=== PATIENT | male | born 1970 | race Caucasian/White ===

== ENCOUNTER 2019-06-25 11:26 | Inpatient (IN) | payer OTHER, SELFPAY ==
[2019-06-25] VITALS (10 sets, daily range): BP systolic 125–164; BP diastolic 78–107; PULSE 75–95; RESP 16–89; TEMP 36.5–36.9; O2SAT 98–100; BMI 33.6
--- NOTE | 2019-06-25 11:28 | ED.ABDPAIN ---
HPI - Abdominal Pain General Chief Complaint: Urogenital-Male Stated Complaint: kidney pain Time Seen by Provider: 06/25/19 11:27 Source: patient Mode of arrival: Ambulatory Limitations: no limitations History of Present Illness HPI narrative: This is a 49-year-old male comes emergency department with complaint of right flank pain that has since moved to the left side. Patient states worse at night and improved during the day. He states that during the day about a 5/10 in itis about 10/10. He has had several days of symptoms. He has not had any fevers. He denies any cold cough or congestion this week. Patient has not had any nausea or vomiting he has been constipated but had a bowel movement 24 hours ago. He states it was sort of greenish in coloration. He has not had any black or bloody stools. Patient states he has noticed his urine is a little full me, as well as has an odor. He denies any dysuria, urgency or frequency. He denies any testicular pain currently. He denies any swelling. Patient does have known type 2 diabetes, hypertension as well as dyslipidemia and takes metformin, pioglitazone, atorvastatin and lisinopril. He also has a history of depression states he has had thoughts of harming himself in the past but not currently. He also has a history of myocarditis about 10-15 years ago which he states he had a cardiac catheterization which was negative and he does not know if they ever found a cause. He has had a cholecystectomy. He denies tobacco, alcohol or illicit Related Data Allergies Allergy/AdvReac Type Severity Reaction Status Date / Time No Known Drug Allergies Allergy Verified 06/25/19 13:56 Review of Systems Review of Systems ROS Unobtainable: All systems reviewed & are unremarkable except as noted in HPI and below Patient History Medical History (Updated 06/25/19 @ 12:57 by Victoria Coombs DO) Depression (Acute) Diabetes (Acute) Dyslipidemia (Acute) Hypertension (Acute) Surgical History (Updated 06/25/19 @ 11:53 by Victoria Coombs DO) Hx of cholecystectomy (Acute) S/P cardiac cath (Acute) Social History Smoking Status: Never smoker Smoking Status: Never smoker Substance Use Type: does not use Exam Narrative Exam Narrative: GENERAL: Alert and oriented x three, well-nourished male in mild distress. HEENT: Head normocephalic, atraumatic, EOMI, pupils reactive, face symmetric, moist mucous membranes NECK: Supple, full range of motion CARDIOVASCULAR: Regular rate and rhythm without murmurs, rubs or gallops. RESPIRATORY: Breath sounds equal bilaterally, no wheezes rales or rhonchi. ABDOMEN: Soft, nontender. Normoactive bowel sounds all 4 quadrants. No guarding or rebound, rigidity, no mass : Bilateral CVA tenderness BACK: No cervical, thoracic or lumbar vertebral point tenderness. Patient has normal range of motion. Patient's gait is normal. Rectal exam is deferred. Muscle strength is 5/5 in lower extremities, DTRs are 2/4 and lower extremities. Patient does have some mild discomfort with rotation and side bending. Prefers to sit up straight. EXTREMITIES: Normal range of motion, no clubbing or edema. Neurovascularly intact NEUROLOGICAL: Cranial nerves II through XII grossly intact. Moving all extremities SKIN: Warm, dry, no petechiae, no rashes or lesions. Initial Vital Signs Initial Vital Signs: Vital Signs Temperature 97.8 F 06/25/19 11:30 Pulse Rate 95 H 06/25/19 11:30 Respiratory Rate 18 06/25/19 11:30 Blood Pressure 164/107 H 06/25/19 11:30 Pulse Oximetry 100 06/25/19 11:30 Course Orders Ordered: ED Orders 06/25/19 11:35 Urine Microscopic Stat 06/25/19 11:49 US abdomen complete Stat 06/25/19 12:27 Complete Blood Count AUTO DIFF Stat Comprehensive Metabolic Panel Stat Lipase Stat Discontinued Medications Sodium Chloride (Normal Saline 0.9%) 1,000 mls @ 1,000 mls/hr IV BOLUS ONE Stop: 06/25/19 14:01 Last Infusion: 06/25/19 13:56 Dose: 0 mls/hr Documented by: Admin: 06/25/19 13:12 Dose: 1,000 mls/hr Documented by: FRANCISCO Ketorolac Tromethamine (Toradol) 15 mg IV NOW ONE Stop: 06/25/19 14:23 Ketorolac Tromethamine (Toradol) 15 mg IV NOW ONE Stop: 06/25/19 14:25 Vital Signs Vital signs: Vital Signs - 8 hr 06/25/19 11:30 06/25/19 12:56 06/25/19 13:30 Temperature 97.8 F Pulse Rate 95 H 85 86 Respiratory Rate 18 89 H Blood Pressure 164/107 H Blood Pressure [Left Arm] 137/85 154/85 H Pulse Oximetry 100 99 100 MDM - Abdominal Pain Lab Data Attestation: I reviewed the patient's lab results. Result diagrams: 06/25/19 12:27 06/25/19 12:27 Labs: Lab Results 06/25/19 06/25/19 06/25/19 Range/Units 11:35 12:27 12:27 WBC 8.4 (4.5-11.0) X10^3/uL RBC 5.17 (4.5-5.9) X10^6/uL Hgb 15.4 (13.5-17.5) g/dL Hct 44.3 (41-53) % MCV 85.7 (80-100) fL MCH 29.9 (26-34) PG MCHC 34.9 (30-36) % RDW 13.5 (11.6-14.8) % Plt Count 287 (150-400) X10^3/uL Neut % (Auto) 68.3 (50-75) % Lymph % (Auto) 21.9 L (25-40) % [place] % (Auto) 6.8 (3-14) % Eos % (Auto) 2.2 (2-4) % Baso % (Auto) 0.8 (0-2) % Neut # (Auto) 5700 (5018-9924) /uL Lymph # (Auto) 1800 (7607-0732) /uL [place] # (Auto) 600 (0-900) /uL Eos # (Auto) 200 (0-450) /uL Baso # (Auto) 100 (0-100) /uL Sodium 136 L (137-145) mmol/L Potassium 4.3 (3.4-5.1) mmol/L Chloride 99 (98-107) mmol/L Carbon Dioxide 25 (22-32) mmol/L BUN 10 (9-20) mg/dL Creatinine 0.68 (0.66-1.25) mg/dL Estimated GFR > 60.0 (>60) mL/min BUN/Creatinine Ratio 14.7 (6-22) Glucose 358 H (70-100) mg/dL Calcium 9.4 (8.4-10.2) mg/dL Total Bilirubin 0.9 (0.2-1.3) mg/dL AST 23 (17-59) IU/L ALT 31 (<50) IU/L Alkaline Phosphatase 106 (38-126) U/L Total Protein 7.6 (6.3-8.2) g/dL Albumin 4.5 (3.5-5.0) g/dL Globulin 3.1 (1.7-4.1) g/dL Albumin/Globulin Ratio 1.5 (1.0-2.8) Lipase 988 H (23-300) U/L Urine RBC None seen (0-5/HPF) Urine WBC 0-1/hpf (0-5/HPF) Ur Squamous Epith Cells 0-1 /hpf (0-5/HPF) Urine Bacteria None seen (None) Ur Culture Indicated? Cult not indicated Point of care testing: Urine Dip Bedside Urine Glucose 1000 mg/dl Bedside Urine Bilirubin - Negative Bedside Urine Ketone + 15 Urine Specific Morgan 1.015 Bedside Urine Occult Blood - Negative Bedside Urine pH 5.5 Bedside Urine Protein - Negative Bedside Urine Urobilinogen - Negative Bedside Urine Nitrite - Negative Bedside Urine Leukocytes - Negative Esterase Imaging Data US - abdomen: Radiologist's Impression: [place] [id number] Ultrasound Report Signed Patient: Vishal Purdy [facility]#: [id number] : 1970Acct:[id number] Age/Sex: 49 / MDate of Service: 06/25/19 Loc: ED Accession Number: [id number] Procedure: US abdomen complete Ordering Provider: Victoria Coombs D.O. PROCEDURE: US ABDOMEN COMPLETE INDICATIONS: BILATERAL BACK PAIN TECHNIQUE: Real-time scanning was performed of the abdominal and retroperitoneal organs, with image documentation. COMPARISON: None. FINDINGS: Liver: Liver is normal in size and demonstrates diffusely increased echogenicity when compared to the right kidney. This does result in difficulty evaluating the liver for deep liver lesions. No large liver lesions are identified. Gallbladder: Patient has had a prior cholecystectomy. Biliary ducts: No intrahepatic biliary dilatation is identified. The common bile duct was not definitely identified related to overlying bowel gas. Pancreas: Visualized portions of the pancreas are sonographically normal. Spleen: The spleen is mildly enlarged at 13.9 cm. No definite splenic lesions are evident. Kidneys: Kidneys are normal in size and echotexture. Right kidney measures 11.7 cm long; left kidney measures 10.9 cm long. No hydronephrosis is identified. Small echogenic foci within the kidneys may be present bilaterally without definitive shadowing. No cystic or solid renal lesions are evident. Aorta: Visualized aorta is normal in caliber at less than 3 cm. Iliacs: Proximal common iliac arteries are normal in caliber at less than 2.5 cm. IVC: Intrahepatic inferior vena cava is patent. Miscellaneous: No free abdominal fluid. IMPRESSION: 1. Probable hepatic steatosis. Please correlate clinically to exclude other chronic liver diseases. 2. Mild splenomegaly. 3. Echogenic foci within the kidneys could potentially represent nonobstructing renal calculi. There is no hydronephrosis. The need for confirmation utilizing CT should be determined clinically. Dictated by: Noé Sanchez M.D. on 06/25/2019 at 12:14 Approved by: Noé Sanchez M.D. on 06/25/2019 at 12:17 MDM Narrative Medical decision making narrative: Patient has bilateral flank tenderness. Point of care urine is negative, was sent for microscopic with patient's history and known prior elevated hemoglobin A1c CBC, CMP and lipase were included as well as ultrasound of the abdomen. Patient's physical exam is benign. Patient defers any pain medications. Patient labs show elevated lipase in the 900 range, patient has elevated glucose in the 350s his anion gap is 12 his CO2 is 25 with no signs of DKA. Patient's ultrasound shows hepatic steatosis. No intrahepatic biliary dilation is identified the common bile duct was not definitively identified secondary to overlying gas pancreas is sonographically normal. Small echogenic foci in the kidneys could be present but without definitive shadowing could represent nonobstructing calculi. No cystic or solid renal lesions are evident. Aorta is normal caliber as well as the iliacs and IVC. Discussed with Dr. Fabian, plan for observation for pancreatitis. Patient had fluids started. Patient updated, he does have access to prior labs through his patient portal and had triglycerides in the 400 range which may predispose him to pancreatitis. Discharge Plan Departure Patient Disposition: Admitted as Observation Clinical Impression: Bilateral flank pain Acute pancreatitis Qualifiers: Pancreatitis type: unspecified pancreatitis type Acute pancreatitis complication: unspecified Qualified Code(s): K85.90 - Acute pancreatitis without necrosis or infection, unspecified Admit Date/Time: 06/25/19 13:49 Admit Provider: Toan Fabian
--- NOTE | 2019-06-25 11:49 | DI.US.S_ITS ---
PROCEDURE: US ABDOMEN COMPLETE INDICATIONS: BILATERAL BACK PAIN TECHNIQUE: Real-time scanning was performed of the abdominal and retroperitoneal organs, with image documentation. COMPARISON: None. FINDINGS: Liver: Liver is normal in size and demonstrates diffusely increased echogenicity when compared to the right kidney. This does result in difficulty evaluating the liver for deep liver lesions. No large liver lesions are identified. Gallbladder: Patient has had a prior cholecystectomy. Biliary ducts: No intrahepatic biliary dilatation is identified. The common bile duct was not definitely identified related to overlying bowel gas. Pancreas: Visualized portions of the pancreas are sonographically normal. Spleen: The spleen is mildly enlarged at 13.9 cm. No definite splenic lesions are evident. Kidneys: Kidneys are normal in size and echotexture. Right kidney measures 11.7 cm long; left kidney measures 10.9 cm long. No hydronephrosis is identified. Small echogenic foci within the kidneys may be present bilaterally without definitive shadowing. No cystic or solid renal lesions are evident. Aorta: Visualized aorta is normal in caliber at less than 3 cm. Iliacs: Proximal common iliac arteries are normal in caliber at less than 2.5 cm. IVC: Intrahepatic inferior vena cava is patent. Miscellaneous: No free abdominal fluid. IMPRESSION: 1. Probable hepatic steatosis. Please correlate clinically to exclude other chronic liver diseases. 2. Mild splenomegaly. 3. Echogenic foci within the kidneys could potentially represent nonobstructing renal calculi. There is no hydronephrosis. The need for confirmation utilizing CT should be determined clinically. Dictated by: Noé Sanchez M.D. on 06/25/2019 at 12:14 Approved by: Noé Sanchez M.D. on 06/25/2019 at 12:17
--- NOTE | 2019-06-25 12:21 | PC.NURSE ---
2 IV attempts by nicholas RN. One by Vane PALOMARES. unable to place IV. Dr. Coombs notified and Called for lab draw.
[2019-06-25 12:28] LABS: Bacteria Urine None Seen; RBC Urine None Seen (0-5/HPF)
[2019-06-25 12:38] LABS: Culture Indicated Urine Cult Not Indicated; Squamous Epithelial Cell Urine 0-1 /HPF (0-5/HPF); WBC Urine 0-1/HPF (0-5/HPF)
[2019-06-25 12:39] LABS: Add Manual Diff / Slide Review NO; Basophils Absolute Auto 100 /uL (0-100); Basophils Percent Auto 0.8 % (0-2); Eosinophils Absolute Auto 200 /uL (0-450); Eosinophils Percent Auto 2.2 % (2-4); Hematocrit 44.3 % (41-53); Hemoglobin 15.4 g/dL (13.5-17.5); Lymphocytes Absolute Auto 1800 /uL (1100-4500); Lymphocytes Percent Auto 21.9 % (25-40); Mean Corpuscular HGB Conc 34.9 % (30-36); Mean Corpuscular Hemoglobin 29.9 PG (26-34); Mean Corpuscular Volume 85.7 fL (80-100); Monocytes Absolute Auto 600 /uL (0-900); Monocytes Percent Auto 6.8 % (3-14); Neutrophils Absolute Auto 5700 /uL (1500-7000); Neutrophils Percent Auto 68.3 % (50-75); Platelet Count 287 X10^3/uL (150-400); Red Blood Cell Count 5.17 X10^6/uL (4.5-5.9); Red Cell Distribution Width 13.5 % (11.6-14.8); White Blood Cell Count 8.4 X10^3/uL (4.5-11.0)
[2019-06-25 12:50] LABS: Alanine Aminotransferase 31 IU/L (<50); Albumin 4.5 g/dL (3.5-5.0); Albumin Globulin Ratio 1.5 (1.0-2.8); Alkaline Phosphatase 106 U/L (38-126); Aspartate Aminotransferase 23 IU/L (17-59); BUN Creatinine Ratio 14.7 (6-22); Bilirubin Total 0.9 mg/dL (0.2-1.3); Blood Urea Nitrogen 10 mg/dL (9-20); Calcium 9.4 mg/dL (8.4-10.2); Carbon Dioxide 25 mmol/L (22-32); Chloride 99 mmol/L (98-107); Estimated Glomerular Filt Rate > 60.0 mL/min (>60); Globulin 3.1 g/dL (1.7-4.1); Glucose 358 mg/dL (70-100); HEMOLYSIS < 15 (0-50); Lipase 988 U/L (23-300); Potassium 4.3 mmol/L (3.4-5.1); Sodium 136 mmol/L (137-145); Total Protein 7.6 g/dL (6.3-8.2)
[2019-06-25] MEDS: SODIUM CHLORIDE 0.9% 1,000 ML 1000 ML IV ×2 (13:12→15:32)
[2019-06-25] MEDS: KETOROLAC 15 MG/ML VIAL IV (14:46)
--- NOTE | 2019-06-25 14:55 | PC.NURSE ---
Assumed care of patient at 1440 from ER. Patient is A/Ox3, in 8/10 flank pain. Administered prescribed Ketorolac 15 mg, RUE PIV is patent and infusing. Patient denies a fall in the past 3 months, denies SOB, chest pain, dizziness, lightheadedness. Patient reports BM while in the ER, voiding appropriately, urinal at bedside. Verbalizes feeling anxious. Patient is NPO at this time. Call light in reach, SCD's on, warm blanket provided.
--- NOTE | 2019-06-25 15:25 | PM.HP.1 ---
History of Present Illness History of Present Illness Date Patient Seen: 06/25/19 Time Patient Seen: 15:00 Chief complaint: kidney pain Narrative: Patient is a 49-year-old male with history of type 2 diabetes, hypertension, hyperlipidemia who presented to the emergency department because of back and abdominal pain for the past 5-6 days. He states the discomfort started in his right mid back and then also affected the left mid back. Over the past couple of days he has had progressive and severe upper abdominal pain. He has had decreased appetite, nausea without vomiting. He noticed eating made the pain worse. He denies fevers or chills. He noticed urine is frothy but has not had dysuria. He has not been checking his blood sugars regularly. His last A1c was 11% on 02/22/2019 and provider increased his Actos dose at that time. Patient also has history of elevated triglycerides with triglyceride of 420 back on February 22. He has history cholecystectomy 18 years ago. He denies alcohol use and does not smoke cigarettes but does use cannabis occasionally. ER workup included labs which showed normal CBC, normal chemistries, except glucose 358. His lipase was elevated at 988. LFTs were normal. His urinalysis microscopic is normal. Ultrasound showed absence of gallbladder, CBD not visualized secondary to bowel gas, nonobstructing renal calculi, mild splenomegaly. Patient also reports he had respiratory illness with cough, chest congestion, fatigue and myalgias 3 weeks ago. He was seen at walk-in clinic and told he probably has coronavirus but he did not meet testing requirements at the time. He states he fully recovered over period of 5 or 6 days. Patient has and 2 kids. They moved from [place] very recently and he has not had opportunity to establish with local PCP. Patient History Medical History (Updated 06/25/19 @ 12:57 by Victoria Coombs DO) Depression (Acute) Diabetes (Acute) Dyslipidemia (Acute) Hypertension (Acute) Surgical History (Updated 06/25/19 @ 11:53 by Victoria Coombs DO) Hx of cholecystectomy (Acute) S/P cardiac cath (Acute) Family & Social History Safety & Behavioral: Feels Safe in Current Yes Environment Been Physically Hurt or No Threatened By a Person Tobacco & Substance use: Smoking Status Never smoker Substance Use Type does not use Meds Home Medications and Allergies Allergies Allergy/AdvReac Type Severity Reaction Status Date / Time No Known Drug Allergies Allergy Verified 06/25/19 13:56 Review of Systems Review of Systems ROS: Yes All systems reviewed with the patient and are negative except as otherwise documented Exam Vital Signs (past 8 hours): - 06/25/19 11:30 06/25/19 12:56 06/25/19 13:30 Temperature 97.8 F Pulse Rate 95 H 85 86 Respiratory Rate 18 89 H Blood Pressure 164/107 H Blood Pressure [Left Arm] 137/85 154/85 H Pulse Oximetry 100 99 100 06/25/19 14:35 Temperature 97.7 F Pulse Rate 75 Respiratory Rate 22 Blood Pressure 135/105 H Blood Pressure [Left Arm] Pulse Oximetry 100 Oxygen Delivery Method Room Air Oxygen Flow Rate 0 Narrative Exam Narrative: General: Alert and very pleasant cooperative male who is at this time I will leave uncomfortable HEENT: Pupils equal Neck: No lymphadenopathy Lungs: Clear to auscultation Heart: Normal S1 and S2, regular rate and rhythm, no murmur Abdomen: Obese, soft, moderate tenderness to palpation in the mid abdomen and right upper quadrant, no HSM, no flank tenderness Extremities: Nonedematous Neurological: Sensorium intact, nonfocal Skin: No rash Objective Labs Result Diagrams: 06/25/19 12:27 06/25/19 12:27 Labs: Laboratory Results - last 24 hr 06/25/19 06/25/19 06/25/19 11:35 12:27 12:27 WBC 8.4 RBC 5.17 Hgb 15.4 Hct 44.3 MCV 85.7 MCH 29.9 MCHC 34.9 RDW 13.5 Plt Count 287 Neut % (Auto) 68.3 Lymph % (Auto) 21.9 L [place] % (Auto) 6.8 Eos % (Auto) 2.2 Baso % (Auto) 0.8 Neut # (Auto) 5700 Lymph # (Auto) 1800 [place] # (Auto) 600 Eos # (Auto) 200 Baso # (Auto) 100 Sodium 136 L Potassium 4.3 Chloride 99 Carbon Dioxide 25 BUN 10 Creatinine 0.68 Estimated GFR > 60.0 BUN/Creatinine Ratio 14.7 Glucose 358 H Calcium 9.4 Total Bilirubin 0.9 AST 23 ALT 31 Alkaline Phosphatase 106 Total Protein 7.6 Albumin 4.5 Globulin 3.1 Albumin/Globulin Ratio 1.5 Lipase 988 H Urine RBC None seen Urine WBC 0-1/hpf Ur Squamous Epith Cells 0-1 /hpf Urine Bacteria None seen Ur Culture Indicated? Cult not indicated Assessment & Plan Assessment & Plan narrative: Patient is a 49-year-old male with history of poorly controlled type 2 diabetes, hypertension, hyperlipidemia/dyslipidemia, obesity presents with 5-6 days of back and abdominal pain. 1. Acute pancreatitis, present on admission, active -history of cholecystectomy, nondrinker, history of elevated triglycerides -check triglyceride level -received NS 1 L in the ED, provide additional 1 L NS -NS 150 cc/hour for maintenance IV -Toradol 30 mg IV q.6 hours as needed -morphine 1 mg IV q.2 hours as needed for more severe pain -full liquid diet as tolerated 2. Type 2 diabetes -BMI 33 -last A1c 11% in February 2019 -check A1c -continue patient's Actos 45 mg q.d. and metformin 1000 mg b.i.d. -NovoLog medium dose sliding scale -c/o ?frothy ?urine--check urine microalbumin 3. Hypertension -BP moderately elevated may be due to pain -continue patient's lisinopril 10 mg HS -consider increase lisinopril for uncontrolled hypertension or microalbuminuria 4. Hyperlipidemia/dyslipidemia -continue patient's atorvastatin 40 mg HS 5. Chronic anxiety -patient takes hydroxyzine 50 mg once daily and clonazepam 1 mg at night on as needed basis -mood and affect very stable, continue meds DVT prophylaxis: Lovenox
[2019-06-25 15:40] LABS: Triglycerides 413 mg/dL (35-150)
[2019-06-25] MEDS: hydrOXYzine pamoate 25 MG CAPSULE 50 MG PO (15:41)
[2019-06-25] MEDS: SODIUM CHLORIDE 0.9% 1,000 ML 150 ML IV ×2 (16:32→23:51)
[2019-06-25] MEDS: METFORMIN HCL 500 MG TABLET 1000 MG PO (16:33)
[2019-06-25] MEDS: INSULIN ASPART 100 UNIT/ML INSULN PEN SUBCUT ×2 (16:33→21:19)
[2019-06-25 18:35] LABS: Creatinine Urine Random 63.9 mg/dL
[2019-06-25 18:41] LABS: Microalbumin Urine Random 0.9 mg/dL (0-1.6)
[2019-06-25] MEDS: clonazePAM 0.5 MG TABLET 1 MG PO (21:17)
[2019-06-25] MEDS: KETOROLAC 30 MG/ML VIAL IV (21:17)
[2019-06-25] MEDS: ATORVASTATIN 20 MG TABLET 40 MG PO (21:18)
[2019-06-25] MEDS: lisinopriL 10 MG TABLET PO (21:19)
[2019-06-26] VITALS (11 sets, daily range): BP systolic 118–148; BP diastolic 70–92; PULSE 75–98; RESP 16–20; TEMP 36.2–37.2; O2SAT 97–99
[2019-06-26] MEDS: KETOROLAC 30 MG/ML VIAL IV (06:23)
[2019-06-26] MEDS: SODIUM CHLORIDE 0.9% 1,000 ML 150 ML IV ×3 (06:24→20:41)
[2019-06-26 06:42] LABS: BUN Creatinine Ratio 14.9 (6-22); Blood Urea Nitrogen 10 mg/dL (9-20); Calcium 8.7 mg/dL (8.4-10.2); Carbon Dioxide 24 mmol/L (22-32); Chloride 105 mmol/L (98-107); Estimated Glomerular Filt Rate > 60.0 mL/min (>60); Glucose 272 mg/dL (70-100); Sodium 136 mmol/L (137-145)
[2019-06-26 06:44] LABS: HEMOLYSIS 84 (0-50)
[2019-06-26 06:45] LABS: Potassium 4.7 mmol/L (3.4-5.1)
[2019-06-26] MEDS: ENOXAPARIN 40 MG/0.4 ML SYRINGE SUBCUT (08:06)
[2019-06-26] MEDS: PIOGLITAZONE 15 MG TABLET 45 MG PO (08:07)
[2019-06-26] MEDS: METFORMIN HCL 500 MG TABLET 1000 MG PO (08:07)
[2019-06-26] MEDS: INSULIN ASPART 100 UNIT/ML INSULN PEN SUBCUT ×4 (08:08→20:43)
[2019-06-26 08:33] LABS: Add Manual Diff / Slide Review NO; Basophils Absolute Auto 100 /uL (0-100); Basophils Percent Auto 0.9 % (0-2); Eosinophils Absolute Auto 200 /uL (0-450); Eosinophils Percent Auto 2.7 % (2-4); Hematocrit 41.9 % (41-53); Hemoglobin 14.9 g/dL (13.5-17.5); Lymphocytes Absolute Auto 1900 /uL (1100-4500); Lymphocytes Percent Auto 26.5 % (25-40); Mean Corpuscular HGB Conc 35.4 % (30-36); Mean Corpuscular Hemoglobin 30.4 PG (26-34); Mean Corpuscular Volume 85.9 fL (80-100); Monocytes Absolute Auto 300 /uL (0-900); Monocytes Percent Auto 4.9 % (3-14); Neutrophils Absolute Auto 4600 /uL (1500-7000); Platelet Count 248 X10^3/uL (150-400); Red Blood Cell Count 4.88 X10^6/uL (4.5-5.9); Red Cell Distribution Width 13.4 % (11.6-14.8)
--- NOTE | 2019-06-26 08:46 | CM.DANOTE ---
DCP: Case received, EMR reviewed and met with patient. Introduced self and role. Was able to obtain information from patient regarding baseline activity, health, and living situation. DCP assessment completed with information currently available. Patient is a 49 year old male who admitted yesterday afternoon to the care of the hospitalist team. PCP: None Payer: confirmed: [facility]. Patient came to the hospital via family vehicle secondary to right and left flank back pain. According to notes, this had been occurring for the past few days. Patient holds current diagnosis of pancreatitis. Patient has history of diabetes type 2, myocarditis, as well as depression. Met with patient in his room. Pleasant, alert and oriented. He was sitting up in his bed. Confirmed that he and his just moved here recently from [place], and has no local PCP. He is open to resources to establishing with PCP. Patient stated that when he left [place], he was provided with a months worth of medication. He is also getting a glucometer, for he stated that he has not been checking his blood sugars. Patient is independent, and resides in [place] with his spouse, Casey. He is employed at [employer], but stated that he is currently working from home. P: DCP to continue to follow, and will be available for any resources needed. Patient should be able to go home when he is medically stable. Apolonia Barrios RN/Oil Laboratory Analyst
[2019-06-26] MEDS: hydrOXYzine pamoate 25 MG CAPSULE 50 MG PO (12:14)
--- NOTE | 2019-06-26 14:54 | DI.MRI.S_ITS ---
PROCEDURE: MR ABDOMEN WO CON INDICATIONS: Acute Pancreatitis, r/o bile duct stones TECHNIQUE: Coronal HASTE through the abdomen, axial 2-D FLASH in- and [id number], and breath-hold T2 FSE with fat saturation through the biliary system and pancreas. Oblique coronal and axial thin-slice HASTE, radial thick-slab HASTE centered on the extrahepatic bile ducts. Intravenous secretin: Not requested. COMPARISON: [facility], , ABDOMEN COMPLETE, 06/25/2019, 12:40. FINDINGS: Image quality: Excellent. Pancreas and biliary system: Intra- and extra-hepatic biliary ducts are non dilated. Pancreas is normal in morphology, without adjacent soft tissue edema. Pancreatic duct is normal in caliber, without developmental anomalies. Gallbladder has been previously resected. Other solid organs: Liver is normal in size. Spleen is normal in size. No adrenal nodules. Both kidneys are normal in size, without hydronephrosis. Nodes and vessels: No retroperitoneal or mesenteric adenopathy by size criteria. Aorta and inferior vena cava are normal in size. Bowel and peritoneum: Unenhanced bowel loops are normal in caliber. No free fluid. Lung bases: No basal pleural effusions. Heart size is normal. Bones and soft tissues: No ventral hernias. Bone marrow is of normal overall signal. IMPRESSION: No biliary duct dilatation or calculus found. No pancreatic duct distention. The pancreas appears normal. MR scanning is relatively insensitive for detecting mild to moderate acute pancreatitis. Dictated by: Lai Waterman M.D. on 06/26/2019 at 16:04 Approved by: Lai Waterman M.D. on 06/26/2019 at 16:06
--- NOTE | 2019-06-26 14:54 | PM.PN.1 ---
Subjective Subjective Date Patient Seen: 06/26/19 Interval history: The patient is a 49-year-old male who was admitted to the hospital for acute pancreatitis. Patient reports his abdominal pain has improved. He just received pain medication and notes pain is 2 to 3/10. Previously over the weekend his pain was 10/10 and upon admission 6/10. He has no nausea vomiting. He is still NPO. Patient does admit to eating in inappropriate diet. However he does not drink alcohol, triglycerides were elevated at 400, his gallbladder was taken out many years ago. Exam Vital Signs (past 8 hours): - 06/26/19 07:49 06/26/19 08:00 06/26/19 11:00 Temperature 97.5 F L Pulse Rate 75 Respiratory Rate 18 Blood Pressure 141/85 H Pulse Oximetry 97 98 97 06/26/19 12:00 Temperature 98.9 F Pulse Rate 86 Respiratory Rate 20 Blood Pressure 146/92 H Pulse Oximetry 99 Oxygen Delivery Method Room Air Oxygen Flow Rate 0 Narrative Exam Narrative: Pleasant male resting comfortably in no obvious distress Lungs: Clear to auscultation Cardiac exam: Regular rate and rhythm normal S1-S2 Abdomen: Soft, mildly tender in the midepigastric area, no rebound tenderness, no board-like rigidity, no palpable masses Extremities no edema Objective Labs Result Diagrams: 06/26/19 08:26 06/26/19 06:00 Labs: Laboratory Results - last 24 hr 06/25/19 06/25/19 06/25/19 11:35 12:27 12:27 WBC RBC Hgb Hct MCV MCH MCHC RDW Plt Count Neut % (Auto) Lymph % (Auto) [place] % (Auto) Eos % (Auto) Baso % (Auto) Neut # (Auto) Lymph # (Auto) [place] # (Auto) Eos # (Auto) Baso # (Auto) Sodium Potassium Chloride Carbon Dioxide BUN Creatinine Estimated GFR BUN/Creatinine Ratio Glucose Hemoglobin A1c 11.0 H Calcium Triglycerides 413 H Ur Random Microalbumin 0.9 Urine Creatinine 63.9 Microalb/Creat Ratio 14.0 06/26/19 06/26/19 06:00 08:26 WBC 7.0 RBC 4.88 Hgb 14.9 Hct 41.9 MCV 85.9 MCH 30.4 MCHC 35.4 RDW 13.4 Plt Count 248 Neut % (Auto) 65.0 Lymph % (Auto) 26.5 [place] % (Auto) 4.9 Eos % (Auto) 2.7 Baso % (Auto) 0.9 Neut # (Auto) 4600 Lymph # (Auto) 1900 [place] # (Auto) 300 Eos # (Auto) 200 Baso # (Auto) 100 Sodium 136 L Potassium 4.7 Chloride 105 Carbon Dioxide 24 BUN 10 Creatinine 0.67 Estimated GFR > 60.0 BUN/Creatinine Ratio 14.9 Glucose 272 H Hemoglobin A1c Calcium 8.7 Triglycerides Ur Random Microalbumin Urine Creatinine Microalb/Creat Ratio Assessment & Plan Assessment & Plan narrative: Impression 1. 49-year-old male admitted to the hospital with acute pancreatitis -patient is status post cholecystectomy many years ago, triglycerides were 400, no evidence of alcohol use in many years -will obtain MRCP to look at biliary and pancreatic duct -will continue IV fluids and pain medication -patient will remain NPO at this time 2. Type 2 diabetes, poorly controlled -continue a basal bolus insulin regimen while hospitalized -resume his usual patient regimen at discharge 3. Hypertension -continue usual home regimen 4. Hyperlipidemia -hypertriglyceridemia should improve with improved glucose control -continue statin for now Plan is to advance diet following is MRCP, once the patient is able to tolerated diet and has no further pain anticipate discharge home. Expect discharge home in 1-2 days.
[2019-06-26] MEDS: ONDANSETRON 4 MG/2 ML INJ IV (15:56)
[2019-06-26] MEDS: MORPHINE 2 MG/ML INJ 1 MG IV ×2 (15:57→20:49)
[2019-06-26 17:29] LABS: Lipase 977 U/L (23-300)
[2019-06-26] MEDS: lisinopriL 10 MG TABLET PO (20:41)
[2019-06-26] MEDS: ATORVASTATIN 20 MG TABLET 40 MG PO (20:41)
[2019-06-26] MEDS: INSULIN GLARGINE 100 UNIT/ML 3ML PEN 10 UNIT SUBCUT (20:42)
[2019-06-26] MEDS: clonazePAM 0.5 MG TABLET 1 MG PO (23:15)
[2019-06-27] VITALS (7 sets, daily range): BP systolic 128–138; BP diastolic 74–83; PULSE 74–80; RESP 16–18; TEMP 36.2–36.8; O2SAT 97–99
[2019-06-27] MEDS: SODIUM CHLORIDE 0.9% 1,000 ML 150 ML IV (04:07)
--- NOTE | 2019-06-27 06:26 | PC.NURSE ---
Denies abdominal & no C/O nausea all night. States I'm just hungry for solid food. Instructed to call RN if he needed pain med. Will cont. POC & monitor.
[2019-06-27 06:53] LABS: Add Manual Diff / Slide Review NO; Basophils Absolute Auto 0 /uL (0-100); Basophils Percent Auto 0.3 % (0-2); Eosinophils Absolute Auto 200 /uL (0-450); Eosinophils Percent Auto 2.6 % (2-4); Hemoglobin 14.2 g/dL (13.5-17.5); Lymphocytes Absolute Auto 1600 /uL (1100-4500); Lymphocytes Percent Auto 26.2 % (25-40); Mean Corpuscular HGB Conc 34.7 % (30-36); Mean Corpuscular Hemoglobin 29.9 PG (26-34); Mean Corpuscular Volume 86.2 fL (80-100); Monocytes Absolute Auto 300 /uL (0-900); Monocytes Percent Auto 5.5 % (3-14); Neutrophils Absolute Auto 4000 /uL (1500-7000); Neutrophils Percent Auto 65.4 % (50-75); Platelet Count 249 X10^3/uL (150-400); Red Blood Cell Count 4.76 X10^6/uL (4.5-5.9); Red Cell Distribution Width 13.5 % (11.6-14.8); White Blood Cell Count 6.1 X10^3/uL (4.5-11.0)
[2019-06-27 07:01] LABS: Alanine Aminotransferase 32 IU/L (<50); Albumin 3.7 g/dL (3.5-5.0); Albumin Globulin Ratio 1.2 (1.0-2.8); Alkaline Phosphatase 89 U/L (38-126); Aspartate Aminotransferase 26 IU/L (17-59); BUN Creatinine Ratio 9.1 (6-22); Bilirubin Total 0.8 mg/dL (0.2-1.3); Blood Urea Nitrogen 6 mg/dL (9-20); Calcium 8.7 mg/dL (8.4-10.2); Carbon Dioxide 24 mmol/L (22-32); Chloride 108 mmol/L (98-107); Estimated Glomerular Filt Rate > 60.0 mL/min (>60); Glucose 194 mg/dL (70-100); HEMOLYSIS < 15 (0-50); Potassium 3.7 mmol/L (3.4-5.1); Sodium 140 mmol/L (137-145); Total Protein 6.7 g/dL (6.3-8.2)
[2019-06-27] MEDS: INSULIN ASPART 100 UNIT/ML INSULN PEN SUBCUT ×2 (08:57→12:36)
[2019-06-27] MEDS: ENOXAPARIN 40 MG/0.4 ML SYRINGE SUBCUT (08:58)
--- NOTE | 2019-06-27 14:02 | PC.NURSE ---
Day shift: Pt left unit at approx 1400. Pt wanted to ambulate and did well doing this. He is also driving himself home to [facility] today. He has not had any narcotics since 2100 yesterday. Paperwork signed and all questions answered. Pt has MD scrips and also all personal belongings. He was escorted to care by [facility] [employer] today.
--- NOTE | 2019-06-27 18:02 | P.DS_ITS ---
History of Present Illness History of Present Illness Date Patient Seen: 06/27/19 Chief complaint: kidney pain Narrative: Patient is a 49-year-old male with history of type 2 diabetes, hyper tension, hyperlipidemia who presented to the emergency department because of back and abdominal pain for the past 5-6 days. He states the discomfort started in his right mid back and then also affected the left mid back. Over the past couple of days he has had progressive and severe upper abdominal pain. He has had decreased appetite, nausea without vomiting. He noticed eating made the pain worse. He denies fevers or chills. He noticed urine is frothy but has not had dysuria. He has not been checking his blood sugars regularly. His last A1c was 11% on 02/22/2019 and provider increased his Actos dose at that time. Patient also has history of elevated triglycerides with triglyceride of 420 back on February 22. He has history cholecystectomy 18 years ago. He denies alcohol use and does not smoke cigarettes but does use cannabis occasionally. ER workup included labs which showed normal CBC, normal chemistries, except glucose 358. His lipase was elevated at 988. LFTs were normal. His urinalysis microscopic is normal. Ultrasound showed absence of gallbladder, CBD not visual ized secondary to bowel gas, nonobstructing renal calculi, mild splenomegaly. Patient also reports he had respiratory illness with cough, chest congestion, fatigue and myalgias 3 weeks ago. He was seen at walk-in clinic and told he probably has coronavirus but he did not meet testing requirements at the time. He states he fully recovered over period of 5 or 6 days. Patient has and 2 kids. They moved from [place] very recently and he has not had opportunity to establish with local PCP. Discharge Providers Provider Date of admission: 06/25/19 13:49 Discharge Date: 06/27/19 Discharge provider: Shabnam Bright MD Summary Hospital Course Discharge Diagnosis: 1. Acute pancreatitis, resolved 2. Type 2 diabetes 3. Hypertension 4. Hyperlipidemia 5. Obesity Hospital Course: Patient was admitted to the hospital for acute abdominal pain. His initial lipase was elevated at over 900. Patient was made NPO and given IV fluids. He has a history of cholecystectomy. Patient denies drinking alcohol. His triglycerides were elevated at over 400. He did have an MRCP which showed no ductal dilatation or etiology of his pancreatitis. Patient's blood sugars were elevated. He apparently ran out of his usual Actos medication. He was placed on a sliding scale of insulin. Patient's diet was slowly advanced he tolerated this without difficulty. He was deemed appropriate for discharge and arrangements were made for him to be discharged home. Status at Discharge Cognitive/behavioral status at discharge: oriented Functional status at discharge: independent ambulation Overall status at discharge: patient is back to baseline Time Spent with Patient Time spent: Less than 30 minutes Exam Vital Signs (past 8 hours): - 06/27/19 10:54 06/27/19 11:00 Temperature 97.7 F Pulse Rate 80 Respiratory Rate 18 Blood Pressure 138/82 Pulse Oximetry 98 99 Oxygen Delivery Method Room Air Oxygen Flow Rate 0 Narrative Exam Narrative: Pleasant male in no obvious distress Lungs: Clear to auscultation Cardiac exam: Regular rate and rhythm normal S1-S2 Abdomen: Soft nontender nondistended Extremities: No edema Objective Labs Result Diagrams: 06/27/19 06:23 06/27/19 06:23 Labs: Laboratory Results - last 24 hr 06/27/19 06/27/19 06:23 06:23 WBC 6.1 RBC 4.76 Hgb 14.2 Hct 41.0 MCV 86.2 MCH 29.9 MCHC 34.7 RDW 13.5 Plt Count 249 Neut % (Auto) 65.4 Lymph % (Auto) 26.2 [place] % (Auto) 5.5 Eos % (Auto) 2.6 Baso % (Auto) 0.3 Neut # (Auto) 4000 Lymph # (Auto) 1600 [place] # (Auto) 300 Eos # (Auto) 200 Baso # (Auto) 0 Sodium 140 Potassium 3.7 Chloride 108 H Carbon Dioxide 24 BUN 6 L Creatinine 0.66 Estimated GFR > 60.0 BUN/Creatinine Ratio 9.1 Glucose 194 H Calcium 8.7 Total Bilirubin 0.8 AST 26 ALT 32 Alkaline Phosphatase 89 Total Protein 6.7 Albumin 3.7 Globulin 3.0 Albumin/Globulin Ratio 1.2 Discharge Plan Discharge Plan Patient Disposition: Home Discharge orders & Medications Prescriptions: New atorvastatin [Lipitor] 20 mg Tablet 40 mg PO BEDTIME 30 Days RF: 0 lisinopril 10 mg Tablet 10 mg PO BEDTIME 30 Days RF: 0 pioglitazone [Actos] 45 mg tablet 45 mg PO DAILY Qty: 30 RF: 0 Diet/Activity/Treatments Diet: Low-fat, Low-sodium and Low-cholesterol Visit Report/Discharge Packet Instructions: Blood Glucose, How to Check Your Blood Glucose, Complications of Type 2 Diabetes, Acute Pancreatitis, Hypoglycemia, Type 2 Diabetes, DI for Pancreatitis, DI for Hyperglycemia -- Adult, Atorvastatin, Lisinopril Visit Report Forms: Patient Portal/API, Stroke Signs & Symptoms Discharges patient from system. Discharge Date/Time: 06/27/19 14:06
== END 2019-06-27 14:06 | disposition home or self-care (01) | DRG 440 ==
LOC: ED 13:26 → AC 14:16
PROVIDERS: Internal Medicine; Admitting Provider Internal Medicine; Emergency Provider Emergency Medicine; Referring Provider Emergency Medicine; Visit Provider Internal Medicine
DX: K85.90 Acute pancreatitis without necrosis or infection, unspecified (principal); E11.65 Type 2 diabetes mellitus with hyperglycemia; I10 Essential (primary) hypertension; E78.5 Hyperlipidemia, unspecified; F41.9 Anxiety disorder, unspecified; Z79.84 Long term (current) use of oral hypoglycemic drugs; E66.9 Obesity, unspecified; Z68.33 Body mass index [BMI] 33.0-33.9, adult
CPT/HCPCS: 36415; 74181; 76700; 80048; 80053; 81003; 81015; 82043; 82570; 82962; 83036; 83690; 84478; 85025; 96361; 96374; 99284; J1650; J1885; J2270; J2405

== ENCOUNTER 2019-07-27 01:07 | Observation (INO) | payer OTHER, SELFPAY ==
[2019-06-25 15:23] VITALS: BMI 33.6
[2019-07-27] VITALS (14 sets, daily range): BP systolic 102–180; BP diastolic 72–98; PULSE 69–89; RESP 15–31; TEMP 36.2–36.6; O2SAT 96–100; BMI 33.9; BMI 34.2
--- NOTE | 2019-07-27 01:22 | ED.ABDPAIN ---
HPI - Abdominal Pain General Chief Complaint: Abdominal Pain Stated Complaint: abdominal/back pain Time Seen by Provider: 07/27/19 01:10 Source: patient Mode of arrival: Ambulatory Limitations: no limitations History of Present Illness HPI narrative: 49M non smoker with history of pancreatitis and diabetes as well as hypertension and hyperlipidemia presents with a chief complaint of worsening epigastric pain radiation to his back over the course of the night. He states he has had 1 episode of pancreatitis previously without an obvious etiology. He has a surgically absent gallbladder and denies use of alcohol. His triglycerides were in the normal range. His pain is worse with motion, eating or drinking and improves with rest. He has nausea but denies vomiting. He denies any injury. He denies fever or chills. MD complaint: abdominal pain Onset (ago): hour(s) Pain Consistency: constant Location: epigastric Severity: severe Quality: stabbing Radiation: back Relieving factors: rest Exacerbating factors: movement Associated symptoms: nausea Related Data Home Medications Medication Instructions Recorded Confirmed hydroxyzine pamoate [Vistaril] 50 mg PO PRN PRN 07/27/19 07/27/19 loratadine [Claritin] 10 mg PO DAILY 07/27/19 07/27/19 metformin 1,000 mg PO BID 07/27/19 07/27/19 Previous Rx's Medication Instructions Recorded atorvastatin [Lipitor] 40 mg PO BEDTIME 30 Days tab 06/27/19 lisinopril 10 mg PO BEDTIME 30 Days tab 06/27/19 pioglitazone [Actos] 45 mg PO DAILY #30 tab 06/27/19 Allergies Allergy/AdvReac Type Severity Reaction Status Date / Time No Known Drug Allergies Allergy Verified 06/25/19 13:56 Review of Systems Constitutional Constitutional: Denies chills, Denies fatigue, Denies fever(s), Denies frequent falls, Denies lethargy and Denies weakness Eyes Eyes: Denies change in vision, Denies eye discharge, Denies irritation and Denies loss of vision ENT Ears, Nose, Mouth, and Throat: Denies change in voice, Denies dizziness, Denies neck pain, Denies sore throat and Denies throat swelling Cardiovascular Cardiovascular: Denies chest pain, Denies irregular heart rhythm, Denies lightheadedness, Denies palpitations, Denies dyspnea, Denies dyspnea on exertion and Denies orthopnea Respiratory Respiratory: Denies cough, Denies dyspnea, Denies dyspnea on exertion and Denies wheezing Gastrointestinal Gastrointestinal: Reports abdominal pain, Denies change in bowel habits, Denies diarrhea, Reports nausea and Denies vomiting Genitourinary Genitourinary: Denies hematuria, Denies flank pain, Denies urinary incontinence and Denies urinary urgency Musculoskeletal Musculoskeletal: Denies back pain, Denies muscle weakness, Denies neck pain, Denies numbness and Denies tingling Integumentary/Breasts Skin/Breast: Denies pruritus, Denies erythema, Denies rash and Denies wounds Neurologic Neurologic: Denies behavioral changes, Denies confusion, Denies dizziness, Denies frequent falls, Denies loss of vision, Denies numbness, Denies tingling and Denies weakness Psychiatric Psychiatric: Denies anxiety, Denies behavioral changes, Denies confusion, Denies depression, Denies homicidal ideation and Denies suicidal ideation Endocrine Endocrine: Denies fatigue, Denies flushing and Denies palpitations Hematologic/Lymphatic Hematologic/Lymphatic: Denies easy bruising Allergic/Immunologic Allergic/Immunologic: Denies urticaria, Denies throat swelling and Denies wheezing Patient History Medical History Acute pancreatitis (Acute) Depression (Acute) Diabetes (Acute) Dyslipidemia (Acute) Hypertension (Acute) Surgical History Hx of cholecystectomy (Acute) S/P cardiac cath (Acute) Family History Father Acute cholecystitis Mother Acute cholecystitis Diverticulitis Cardiac arrhythmia Brother Acute cholecystitis Social History household members: family Smoking Status: Never smoker alcohol intake: never Smoking Status: Never smoker Substance Use Type: marijuana Exam Narrative Exam Narrative: GENERAL: [49] year old patient appears stated age. Well-nourished, well-developed patient, in mild distress. HEAD: Atraumatic. Normocephalic. EYES: Pupils equal round and reactive. Extraocular motions intact. No scleral icterus. No injection or drainage. ENT: Nose without bleeding, purulent drainage. Throat without erythema, tonsillar hypertrophy or exudate. Airway patent. NECK: Trachea midline. Non tender CARDIOVASCULAR: Regular rate and rhythm without murmurs, gallops, or rubs. RESPIRATORY: Clear to auscultation. Breath sounds equal bilaterally. No wheezes, rales, or rhonchi. GASTROINTESTINAL: Abdomen soft, severe epigastric pain, nondistended. EXTREMITIES: No edema or joint tenderness. BACK: Nontender without deformity or crepitance. No flank tenderness. NEURO: AOx3. SKIN: No rash or erythema of visible areas Initial Vital Signs Initial Vital Signs: Vital Signs Temperature 97.9 F 07/27/19 01:45 Pulse Rate 79 07/27/19 01:45 Respiratory Rate 31 H 07/27/19 01:45 Blood Pressure 180/95 H 07/27/19 01:45 Pulse Oximetry 100 07/27/19 01:45 Course Orders Ordered: ED Orders 07/27/19 01:26 EKG-12 Lead Routine EKG-12 Lead Stat 07/27/19 01:35 Complete Blood Count AUTO DIFF Stat Comprehensive Metabolic Panel Stat D Dimer Stat Ethanol (ETOH) Stat Lactate Dehydrogenase Stat Lipase Stat 07/27/19 01:58 CT abdomen pelvis w con Stat Acetaminophen (Tylenol) 650 mg PO Q6HR PRN PRN Reason: Fever/Mild Pain (1-3) Atorvastatin Calcium (Lipitor) 40 mg PO BEDTIME TONYA Dextrose (D50w) 25 gm IV PRN PRN PRN Reason: Hypoglycemia Hydromorphone HCl (Dilaudid) 0.5 mg IV Q4H PRN PRN Reason: Pain, Severe (7-10) Sodium Chloride (Normal Saline 0.9%) 1,000 mls @ 125 mls/hr IV CONT [facility] Last Admin: 07/27/19 05:05 Dose: 100 mls/hr Documented by: KGSAMANTA Insulin Aspart (Novolog Flexpen) 0 unit SUBCUT ACHS [facility]; Protocol Insulin Glargine (Lantus Solostar (Pen)) 8 unit SUBCUT BID [facility] Last Admin: 07/27/19 05:10 Dose: 8 unit Documented by: AYAH Cosigned by: MISHEL Ketorolac Tromethamine (Toradol) 30 mg IV Q6HR PRN PRN Reason: Pain, Severe (7-10) Stop: 08/01/19 04:30 Last Admin: 05/07/20 05:04 Dose: 30 mg Documented by: AYAH Lisinopril (Zestril) 10 mg PO BEDTIME TONYA Naloxone HCl (Narcan) 0.2 mg IV Q2MIN PRN PRN Reason: Opiate Reversal Ondansetron HCl (Zofran) 4 mg IV Q8HR PRN PRN Reason: Nausea And Vomiting Discontinued Medications Hydromorphone HCl (Dilaudid) 0.5 mg IV NOW ONE Stop: 07/27/19 01:20 Last Admin: 07/27/19 01:40 Dose: 0.5 mg Documented by: EMMANUEL Hydromorphone HCl (Dilaudid) 1 mg IV NOW ONE Stop: 07/27/19 03:15 Last Admin: 07/27/19 03:20 Dose: 1 mg Documented by: EMMANUEL Hydroxyzine Pamoate (Vistaril) 25 mg PO NOW ONE Stop: 07/27/19 05:20 Last Admin: 07/27/19 05:52 Dose: Not Given Documented by: AYAH Hydroxyzine Pamoate (Vistaril) 25 mg PO NOW PRN PRN Reason: Insomnia Hydroxyzine Pamoate (Vistaril) 25 mg PO NOW ONE Stop: 07/27/19 05:37 Last Admin: 07/27/19 05:51 Dose: 25 mg Documented by: AYAH Sodium Chloride (Normal Saline 0.9%) 1,000 mls @ 150 mls/hr IV CONT TONYA Last Admin: 07/27/19 01:40 Dose: 150 mls/hr Documented by: EMMANUEL Morphine Sulfate (Morphine) 4 mg IV Q4HR PRN PRN Reason: Pain, Severe (7-10) Ondansetron HCl (Zofran) 4 mg IV NOW ONE Stop: 07/27/19 01:20 Last Admin: 07/27/19 01:39 Dose: 4 mg Documented by: EMMANUEL Consultations Consultation #1: Hospitalist happy to accept Vital Signs Vital signs: Vital Signs - 8 hr 07/27/19 01:45 07/27/19 02:30 07/27/19 03:00 Temperature 97.9 F Pulse Rate 79 81 89 Respiratory Rate 31 H 20 17 Blood Pressure 180/95 H Blood Pressure [Left Arm] 152/86 H 165/93 H Pulse Oximetry 100 99 99 07/27/19 03:30 07/27/19 04:00 Temperature Pulse Rate 87 84 Respiratory Rate 17 15 Blood Pressure Blood Pressure [Left Arm] 146/84 H 167/97 H Pulse Oximetry 96 97 MDM - Abdominal Pain Lab Data Result diagrams: 07/27/19 01:35 07/27/19 01:35 Labs: Lab Results 07/27/19 07/27/19 07/27/19 Range/Units 01:35 01:35 01:35 WBC 9.6 (4.5-11.0) X10^3/uL RBC 5.22 (4.5-5.9) X10^6/uL Hgb 15.6 (13.5-17.5) g/dL Hct 44.9 (41-53) % MCV 85.9 (80-100) fL MCH 30.0 (26-34) PG MCHC 34.9 (30-36) % RDW 13.7 (11.6-14.8) % Plt Count 268 (150-400) X10^3/uL Neut % (Auto) 65.9 (50-75) % Lymph % (Auto) 24.6 L (25-40) % [place] % (Auto) 7.1 (3-14) % Eos % (Auto) 1.7 L (2-4) % Baso % (Auto) 0.7 (0-2) % Neut # (Auto) 6300 (5887-4532) /uL Lymph # (Auto) 2400 (9330-8280) /uL [place] # (Auto) 700 (0-900) /uL Eos # (Auto) 200 (0-450) /uL Baso # (Auto) 100 (0-100) /uL D-Dimer < 200 (<230) ng/mL Sodium 130 L (137-145) mmol/L Potassium 4.3 (3.4-5.1) mmol/L Chloride 93 L (98-107) mmol/L Carbon Dioxide 26 (22-32) mmol/L BUN 14 (9-20) mg/dL Creatinine 0.73 (0.66-1.25) mg/dL Estimated GFR > 60.0 (>60) mL/min BUN/Creatinine Ratio 19.2 (6-22) Glucose 482 H (70-100) mg/dL Calcium 10.2 (8.4-10.2) mg/dL Total Bilirubin 0.9 (0.2-1.3) mg/dL AST 25 (17-59) IU/L ALT 35 (<50) IU/L Alkaline Phosphatase 109 (38-126) U/L Lactate Dehydrogenase (313-618) U/L Total Protein 7.7 (6.3-8.2) g/dL Albumin 4.5 (3.5-5.0) g/dL Globulin 3.2 (1.7-4.1) g/dL Albumin/Globulin Ratio 1.4 (1.0-2.8) Lipase 1049 H (23-300) U/L Ethyl Alcohol ( - 10) mg/dL 07/27/19 Range/Units 01:35 WBC (4.5-11.0) X10^3/uL RBC (4.5-5.9) X10^6/uL Hgb (13.5-17.5) g/dL Hct (41-53) % MCV (80-100) fL MCH (26-34) PG MCHC (30-36) % RDW (11.6-14.8) % Plt Count (150-400) X10^3/uL Neut % (Auto) (50-75) % Lymph % (Auto) (25-40) % [place] % (Auto) (3-14) % Eos % (Auto) (2-4) % Baso % (Auto) (0-2) % Neut # (Auto) (6255-6511) /uL Lymph # (Auto) (8020-5931) /uL [place] # (Auto) (0-900) /uL Eos # (Auto) (0-450) /uL Baso # (Auto) (0-100) /uL D-Dimer (<230) ng/mL Sodium (137-145) mmol/L Potassium (3.4-5.1) mmol/L Chloride (98-107) mmol/L Carbon Dioxide (22-32) mmol/L BUN (9-20) mg/dL Creatinine (0.66-1.25) mg/dL Estimated GFR (>60) mL/min BUN/Creatinine Ratio (6-22) Glucose (70-100) mg/dL Calcium (8.4-10.2) mg/dL Total Bilirubin (0.2-1.3) mg/dL AST (17-59) IU/L ALT (<50) IU/L Alkaline Phosphatase (38-126) U/L Lactate Dehydrogenase 475 (313-618) U/L Total Protein (6.3-8.2) g/dL Albumin (3.5-5.0) g/dL Globulin (1.7-4.1) g/dL Albumin/Globulin Ratio (1.0-2.8) Lipase (23-300) U/L Ethyl Alcohol < 10 ( - 10) mg/dL Point of care testing: Urine Dip Bedside Urine Glucose 1000 mg/dl Bedside Urine Bilirubin - Negative Bedside Urine Ketone +/- 5 Urine Specific [place] 1.015 Bedside Urine Occult Blood - Negative Bedside Urine pH 6.0 Bedside Urine Protein - Negative Bedside Urine Urobilinogen - Negative Bedside Urine Nitrite - Negative Bedside Urine Leukocytes - Negative Esterase Imaging Data CT scan - abdomen/pelvis: Radiologist's Impression: Mild pancreatitis MDM Narrative Medical decision making narrative: Patient with history, exam and labs consistent with pancreatitis. Pancreatitis noted on CT in the absence of abscess. Patient requires multiple doses of IV pain medication to control symptoms. Discharge Plan Departure Patient Disposition: Admitted As Inpatient Clinical Impression: Acute pancreatitis Qualifiers: Pancreatitis type: unspecified pancreatitis type Acute pancreatitis complication: unspecified Qualified Code(s): K85.90 - Acute pancreatitis without necrosis or infection, unspecified Discharge Date/Time: 07/27/19 04:24 Admit Date/Time: 07/27/19 04:20 Admit Provider: Mariana Garg
[2019-07-27] MEDS: ONDANSETRON 4 MG/2 ML INJ IV ×2 (01:39→11:19)
[2019-07-27] MEDS: HYDROMORPHONE 0.5 MG INJ IV ×3 (01:40→21:26)
[2019-07-27] MEDS: SODIUM CHLORIDE 0.9% 1,000 ML 150 ML IV (01:40)
[2019-07-27 01:46] LABS: Add Manual Diff / Slide Review NO; Basophils Absolute Auto 100 /uL (0-100); Basophils Percent Auto 0.7 % (0-2); Eosinophils Absolute Auto 200 /uL (0-450); Eosinophils Percent Auto 1.7 % (2-4); Hematocrit 44.9 % (41-53); Hemoglobin 15.6 g/dL (13.5-17.5); Lymphocytes Absolute Auto 2400 /uL (1100-4500); Lymphocytes Percent Auto 24.6 % (25-40); Mean Corpuscular HGB Conc 34.9 % (30-36); Mean Corpuscular Volume 85.9 fL (80-100); Monocytes Absolute Auto 700 /uL (0-900); Monocytes Percent Auto 7.1 % (3-14); Neutrophils Absolute Auto 6300 /uL (1500-7000); Neutrophils Percent Auto 65.9 % (50-75); Platelet Count 268 X10^3/uL (150-400); Red Blood Cell Count 5.22 X10^6/uL (4.5-5.9); Red Cell Distribution Width 13.7 % (11.6-14.8); White Blood Cell Count 9.6 X10^3/uL (4.5-11.0)
[2019-07-27 01:53] LABS: Alanine Aminotransferase 35 IU/L (<50); Albumin 4.5 g/dL (3.5-5.0); Albumin Globulin Ratio 1.4 (1.0-2.8); Alkaline Phosphatase 109 U/L (38-126); Aspartate Aminotransferase 25 IU/L (17-59); BUN Creatinine Ratio 19.2 (6-22); Bilirubin Total 0.9 mg/dL (0.2-1.3); Blood Urea Nitrogen 14 mg/dL (9-20); Calcium 10.2 mg/dL (8.4-10.2); Carbon Dioxide 26 mmol/L (22-32); Chloride 93 mmol/L (98-107); Estimated Glomerular Filt Rate > 60.0 mL/min (>60); Globulin 3.2 g/dL (1.7-4.1); Glucose 482 mg/dL (70-100); HEMOLYSIS 17 (0-50); Lipase 1049 U/L (23-300); Potassium 4.3 mmol/L (3.4-5.1); Sodium 130 mmol/L (137-145); Total Protein 7.7 g/dL (6.3-8.2)
[2019-07-27 01:54] LABS: D Dimer < 200 ng/mL (<230)
--- NOTE | 2019-07-27 01:58 | DI.CT.S_ITS ---
PROCEDURE: CT ABDOMEN PELVIS W CON INDICATIONS: severe abdominal pain TECHNIQUE: After the administration of intravenous contrast, 5 mm thick sections acquired from the diaphragm to the symphysis. 5 mm coronal and sagittal reformats were acquired. For radiation dose reduction, the following was used: automated exposure control, adjustment of mA and/or kV according to patient size. COMPARISON: None. FINDINGS: Image quality: Excellent. ABDOMEN: Lung bases: 8mm right middle lobe nodule with suggestion of subtle irregularity. Lung bases appear clear otherwise. Heart size is normal. Solid organs: Liver is normal in size and enhancement. Gallbladder is surgically absent. Biliary system is non dilated. There is mild peripancreatic inflammatory stranding. Pancreas enhances normally. No organized fluid collections. Spleen is normal in size and enhancement. No adrenal nodules. Kidneys demonstrate normal size and enhancement, without hydronephrosis. Peritoneum and bowel: Bowel loops demonstrate normal wall thickness and caliber. No free fluid or air. Normal appendix Nodes and vessels: No retroperitoneal or mesenteric adenopathy by size criteria. Aorta and inferior vena cava are normal in size. Miscellaneous: No ventral hernias. PELVIS: Genitourinary: Bladder wall thickness is normal. Miscellaneous: No inguinal hernias or adenopathy. Bones: No suspicious bony lesions. No acute vertebral body compression fractures. Mild multilevel lumbar spondylosis. IMPRESSION: 1. Mild acute pancreatitis. 2. Status post cholecystectomy. 3. Normal appendix. No significant discrepancy with the night time nanny radiology preliminary report. Dictated by: Adal Rice M.D. on 07/27/2019 at 8:14 Approved by: Adal Rice M.D. on 07/27/2019 at 8:19
[2019-07-27 02:12] LABS: Ethanol (ETOH) < 10 mg/dL; Lactate Dehydrogenase 475 U/L (313-618)
[2019-07-27] MEDS: HYDROMORPHONE 1 MG INJ IV (03:20)
--- NOTE | 2019-07-27 04:49 | PM.HP.1 ---
History of Present Illness History of Present Illness Date Patient Seen: 07/27/19 Time Patient Seen: 04:49 Chief complaint: abdominal/back pain Narrative: Vishal Purdy is a pleasant 49 y.o. male with diabetes type 2, essential hypertension, hyperlipidemia and status post cholecystectomy approximately 18 years ago, and a recent past hospitalization for acute pancreatitis presented today with worsening abdominal pain and cramping. He states he had no fever but he had sensations of feeling cold and chilly. The pain began last night and by this morning was unbearable he describes the pain as being 7/10. He feels it in the abdomen and kidney area described as more pressure and cramping. He did have nausea but did not have any vomit and he had one bout of diarrhea earler in the day. He denies shortness of breath, chest pain, dysuria, or constipation. He states his his blood sugars have been high and he is not probably been eating well since the state home orders. He is a recent transplant from [place], currently living in [place] and does not have a PCP. Patient History Medical History (Updated 07/27/19 @ 04:53 by SHERWIN Sharma) Acute pancreatitis (Acute) Depression (Acute) Diabetes (Acute) Dyslipidemia (Acute) Hypertension (Acute) Surgical History (Updated 06/25/19 @ 11:53 by Victoria Coombs DO) Hx of cholecystectomy (Acute) S/P cardiac cath (Acute) Family & Social History Family History (Updated 07/27/19 @ 04:55 by SHERWIN Sharma) Father Acute cholecystitis Mother Acute cholecystitis Diverticulitis Cardiac arrhythmia Brother Acute cholecystitis Social History: household members family Prior Living Arrangements House Safety & Behavioral: Feels Safe in Current Yes Environment Been Physically Hurt or No Threatened By a Person Suicidal Ideation Description None Suicide Plan Description No Plan Tobacco & Substance use: Smoking Status Never smoker alcohol intake never Substance Use Type marijuana Meds Home Medications and Allergies Home Medications Medication Instructions Recorded Confirmed Type atorvastatin [Lipitor] 40 mg PO BEDTIME 30 Days tab 06/27/19 07/27/19 Rx lisinopril 10 mg PO BEDTIME 30 Days tab 06/27/19 07/27/19 Rx pioglitazone [Actos] 45 mg PO DAILY #30 tab 06/27/19 07/27/19 Rx hydroxyzine pamoate [Vistaril] 50 mg PO PRN PRN 05/07/20 05/07/20 History loratadine [Claritin] 10 mg PO DAILY 07/27/19 07/27/19 History metformin 1,000 mg PO BID 07/27/19 07/27/19 History Allergies Allergy/AdvReac Type Severity Reaction Status Date / Time No Known Drug Allergies Allergy Verified 06/25/19 13:56 Review of Systems Review of Systems ROS: Yes All systems reviewed with the patient and are negative except as otherwise documented Exam Vital Signs (past 8 hours): - 07/27/19 01:45 07/27/19 02:30 07/27/19 03:00 Temperature 97.9 F Pulse Rate 79 81 89 Respiratory Rate 31 H 20 17 Blood Pressure 180/95 H Blood Pressure [Left Arm] 152/86 H 165/93 H Pulse Oximetry 100 99 99 07/27/19 03:30 07/27/19 04:00 07/27/19 04:22 Temperature 97.6 F Pulse Rate 87 84 77 Respiratory Rate 17 15 16 Blood Pressure 156/93 H Blood Pressure [Left Arm] 146/84 H 167/97 H Pulse Oximetry 96 97 98 Oxygen Delivery Method Room Air Oxygen Flow Rate 0 Narrative Exam Narrative: Gen: Alert, oriented, overweight 49 y.o. male, mildly in pain HEENT: normocephalic, atraumatic, conjunctiva clear, sclera non-icteric, oral mucosa pink and moist Neck: supple, full ROM, no JVD, trachea is midline Resp: Lungs CTA, non-labored breathing CV: RRR, no murmur or rubs Abd: obese, soft, right sided mid-epigastric tenderness, normoactive BTs Skin: Facial erythema, no lesions or rashes, dry and intact Neuro: Alert and oriented X 4 w/no focal deficits Extremities: moves all 4 extremities, is ambulatory, negative Ruben?s sign Psyche: normal mood and affect. Objective Labs Result Diagrams: 07/27/19 01:35 07/27/19 01:35 Labs: Laboratory Results - last 24 hr 07/27/19 07/27/19 07/27/19 01:35 01:35 01:35 WBC 9.6 RBC 5.22 Hgb 15.6 Hct 44.9 MCV 85.9 MCH 30.0 MCHC 34.9 RDW 13.7 Plt Count 268 Neut % (Auto) 65.9 Lymph % (Auto) 24.6 L [place] % (Auto) 7.1 Eos % (Auto) 1.7 L Baso % (Auto) 0.7 Neut # (Auto) 6300 Lymph # (Auto) 2400 [place] # (Auto) 700 Eos # (Auto) 200 Baso # (Auto) 100 D-Dimer < 200 Sodium 130 L Potassium 4.3 Chloride 93 L Carbon Dioxide 26 BUN 14 Creatinine 0.73 Estimated GFR > 60.0 BUN/Creatinine Ratio 19.2 Glucose 482 H Calcium 10.2 Total Bilirubin 0.9 AST 25 ALT 35 Alkaline Phosphatase 109 Lactate Dehydrogenase Total Protein 7.7 Albumin 4.5 Globulin 3.2 Albumin/Globulin Ratio 1.4 Lipase 1049 H Ethyl Alcohol 07/27/19 01:35 WBC RBC Hgb Hct MCV MCH MCHC RDW Plt Count Neut % (Auto) Lymph % (Auto) [place] % (Auto) Eos % (Auto) Baso % (Auto) Neut # (Auto) Lymph # (Auto) [place] # (Auto) Eos # (Auto) Baso # (Auto) D-Dimer Sodium Potassium Chloride Carbon Dioxide BUN Creatinine Estimated GFR BUN/Creatinine Ratio Glucose Calcium Total Bilirubin AST ALT Alkaline Phosphatase Lactate Dehydrogenase 475 Total Protein Albumin Globulin Albumin/Globulin Ratio Lipase Ethyl Alcohol < 10 Assessment & Plan Assessment & Plan narrative: Vishal Purdy is a 49-year-old male with a recent history of hospitalization for acute pancreatitis returns today for the same thing. His lipase was 1049 and also of note his glucose was 480 to on presentation to the ED. He will remain in observation with pain and symptom control and a clear liquid diet. Acute pancreatitis, present on admission -patient is absent gallbladder, etiology is unknown however he has 3 medications that are class 3 for drug-induced pancreatitis including atorvastatin, lisinopril, and metformin -patient will be treated with IV ketorolac, and IV Dilaudid, for pain -clear diet as tolerated if unable to tolerate he will need to be NPO -repeat lipase on 07/27. Diabetes type 2 poorly controlled with a hemoglobin A1c of 11 on 07/10/2019 -his home dose of metformin 1000 mg b.i.d. has been held -will start Lantus 8 units b.i.d. and medium dose insulin correctional scale. -it is possible that the patient will need to switch over to insulin to avoid further exacerbations of pancreatitis -patient is indicated an interest in getting in better physical shape as well as losing weight to better control his glucose Essential hypertension with a admission blood pressure of 156/93, chronic, present on admission -continue home dose of lisinopril 10 mg p.o. at bedtime Hyperlipidemia, chronic, present on admission -continue home dose of atorvastatin 40 mg p.o. daily Consults: none Patient is observation status as his stay is not likely to exceed 2 midnights. FEN: NS at 125 mL/hour, clear liquids, CMP in the am. VTE prophylaxis: Bilateral SCDs Dispo: Probable discharge to home with outpatient referrals for a PCP and possibly GI and nephrology Code Status: Full code as discussed with patient
[2019-07-27] MEDS: KETOROLAC 30 MG/ML VIAL IV ×2 (05:04→12:20)
[2019-07-27] MEDS: SODIUM CHLORIDE 0.9% 1,000 ML 100 ML IV ×2 (05:05→12:34)
[2019-07-27] MEDS: INSULIN GLARGINE 100 UNIT/ML 3ML PEN 8 UNIT SUBCUT ×2 (05:10→21:26)
[2019-07-27] MEDS: hydrOXYzine pamoate 25 MG CAPSULE PO (05:51)
--- NOTE | 2019-07-27 06:18 | PC.NURSE ---
Pt is a very pleasant gentleman who complains of diffuse abdomen pain that radiates towards the back. Describes the pain as a constant dull pain with periods of sharpness. Toradol given and pt states it helped take the edge off. States he recently started eating bad foods again during this quarantine. On a clear liquid diet; only had a few sips of water so far. Glucose in labs was elevated at 482; Fingerstick on floor at 0500 was 307. Given 8 units Lantus for that as requested by SHERWIN Garg. Independent of ADLs B/L SCDs on NS@125mL/hr
[2019-07-27] MEDS: INSULIN ASPART 100 UNIT/ML INSULN PEN SUBCUT ×4 (09:17→21:25)
--- NOTE | 2019-07-27 12:05 | CM.DANOTE ---
Discharge Planning/Care Management DCP: assessment: case received, EMR reviewed (including notes from pt's admission to : 06/24-06/27/19) Introduced self and role. Pt is found lying in bed and looking comfortable. Pt is a 49 year old male who admitted early this morning to care of hospitalist team. Dr. Bright will be seeing him later today. Admission status: INPT: confirmed by BHUPENDRA RN Stgdarryl Payer: listed currently by [employer] as self pay and with an insurance plan that covers only preventive care : [employer] (no coverage for hospital or ER visits). Pt clarifies this: he says he found out during his June admission to that this was his coverage. He has since been working with the insurance [employer], says he has qualified for a [employer] plan but that it is still in process. His understanding is that once this is finalized the coverage will be retroactive. He does not express concern re the information he has thus far. He is waiting for final approval before establishing with a PCP. For now, he pays for his medications out of pocket using available resources for those with no insurance. 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 Asked Dr. Bright if a golf cart maker consult would be helpful and she agreed with same/order is place. Pt is updated and readily agreeable. Pharmacy was present during Team Rounds and has agreed to look at several of pt's medications and report to Dr. Bright as these may be causing pt's recurrent bouts of pancreatitis P: follow prn for needs. Anticipate likely d/c to home setting. Pt drove himself here but says if need be his can pick him up. CM Discharge Assessment Start: 07/27/19 12:03 Freq: Status: Active Protocol: Document 07/27/19 12:03 ITV (Rec: 07/27/19 12:05 ITV [id number]) Discharge Planning Assessment Advance Directives? No History Provided By Patient,Medical Record Has Patient been admitted in last 30 No days? Prior Living Arrangements House Household Members family Comment lives with and children. Type of transporation used prior to Drives own vehicle admit Independent with ADL's Yes Is patient alert and oriented? Yes Review Status In Process
--- NOTE | 2019-07-27 13:24 | PC.NURSE ---
Day Shift- Pt slept in late this morning, when awoke stated feeling groggy. Stated upper abd tender, aching, 6/10 did not want pain meds at this time. Stated feeling mild to moderate nausea. PRN IV Zofran given at 1120 with good effect. At 1220 PRN IV Toradol given for 7/10 upper abd pain and with good relief. Pt tolerated most of clear liquid diet with no increase in abd pain. Pt OOB to BR then chair indep with this RN's observation. Pt Voided 550mls of straw to danilo urine in urinal. Spoke with Dr. Bright around 1320, to reorder pt's home med of Lisinopril.
--- NOTE | 2019-07-27 14:12 | DIET.PN ---
Dietary Progress Note Assessment: 49y M admitted for recurrent pancreatitis, last here 06/30/2019 for same, referred to nutrition as pt stated has been making poor food choices in quarantine and desires to lose weight and get better control of BG. Pt dx c DM2 12y ago, currently takes metformin 1,000mg bid, but not checking BG regularly, also has HTN and HLD. Pt reports having pizza, fish&chips, and lasagna over past few days leading to current pancreatitis admit. Pt exploring cutting out some animal meats to support his health and for ethical reasons for past year or so (currently pescatarian). Pt admits some apathy regarding health as well as a personal struggle balancing natural and western medicine and food systems. Pt considers himself food addict, especially carbs, will eat a whole bag of Ruffles chips, no etoh use. Pt does the family cooking and his enjoys baking and making candies. [place] two kids. No intentional physical activity at this time r/t feeling lack of energy likely from high A1c. Pt would do well on plant-based diet to lose weight and improve HLD, HTN, and DM2 status as long as he regularly checks blood sugars and monitors carb intake. HT: 182.8cm WT: 114.6kg BMI: 34.3 Labs: A1c 11.0 H, Admit BG 482 H, TG 400 H, admit BP 156/93 H MNA: 14 normal Bryant: 22 low risk skin breakdown Nutrition Diagnosis: altered nutrition related laboratory values (elevated A1c, BG, BP, TG) r/t undesirable food choices aeb pt reports eating poorly during quarantine and self-identifies as food addict, trying pescatarian diet but reliant on carbs. Interventions: 1. Educated pt on DM2: A1c, BG, carbohydrates and physical activity c handouts. 2. Introduced pt to mindful eating principles and hunger/satiety scale as method for calorie control c handouts. 3. Provided pt c low kcal/ low carb versions of favorite high carb recipes (lasagna/pad greek) 4. Strongly encouraged pt to enroll in DSME @ to better support his DM2 Diet Order: Clear Liquid EER: 2200kcal (-500/d to support wt loss efforts), 90g PRO (0.8g/kg), 3L fluids Monitoring/Evaluations: reinforced teaching via DSME from PCP referral
--- NOTE | 2019-07-27 14:58 | P.PN_ITS ---
Subjective Subjective Date Patient Seen: 07/27/19 Interval history: The patient is a 49 y/o male admitted for recurrent pancreatitis. Patient does not have a gallbladder, does not drink , and is not on any medications notable for causing pancreatitis. He notes his pain has improved. He is not nauseated, he has tolerated clear liquids without difficulty. For today we will advance his diet. If he tolerates his diet would suggest discharge home tomorrow if no further abdominal pain. I would refer him to [facility] for consideration of ERCP ( despite negative MRCP) to r/o pancreatic divisim or other ductal abnormalities. This has been explained to the patient who concurs. Dietary consult obtained today to discuss food choices for diabetes/ hypertension/ and hyperlipidemia. Exam Vital Signs (past 8 hours): - 07/27/19 07:50 07/27/19 08:00 07/27/19 11:02 Temperature 97.5 F L 97.2 F L Pulse Rate 71 75 Respiratory Rate 16 16 Blood Pressure 102/72 122/78 Pulse Oximetry 97 97 99 Oxygen Delivery Method Room Air Oxygen Flow Rate 0 Objective Labs Result Diagrams: 07/27/19 01:35 07/27/19 01:35 Labs: Laboratory Results - last 24 hr 07/27/19 07/27/19 07/27/19 01:35 01:35 01:35 WBC 9.6 RBC 5.22 Hgb 15.6 Hct 44.9 MCV 85.9 MCH 30.0 MCHC 34.9 RDW 13.7 Plt Count 268 Neut % (Auto) 65.9 Lymph % (Auto) 24.6 L [place] % (Auto) 7.1 Eos % (Auto) 1.7 L Baso % (Auto) 0.7 Neut # (Auto) 6300 Lymph # (Auto) 2400 [place] # (Auto) 700 Eos # (Auto) 200 Baso # (Auto) 100 D-Dimer < 200 Sodium 130 L Potassium 4.3 Chloride 93 L Carbon Dioxide 26 BUN 14 Creatinine 0.73 Estimated GFR > 60.0 BUN/Creatinine Ratio 19.2 Glucose 482 H Calcium 10.2 Total Bilirubin 0.9 AST 25 ALT 35 Alkaline Phosphatase 109 Lactate Dehydrogenase Total Protein 7.7 Albumin 4.5 Globulin 3.2 Albumin/Globulin Ratio 1.4 Lipase 1049 H Ethyl Alcohol 07/27/19 01:35 WBC RBC Hgb Hct MCV MCH MCHC RDW Plt Count Neut % (Auto) Lymph % (Auto) [place] % (Auto) Eos % (Auto) Baso % (Auto) Neut # (Auto) Lymph # (Auto) [place] # (Auto) Eos # (Auto) Baso # (Auto) D-Dimer Sodium Potassium Chloride Carbon Dioxide BUN Creatinine Estimated GFR BUN/Creatinine Ratio Glucose Calcium Total Bilirubin AST ALT Alkaline Phosphatase Lactate Dehydrogenase 475 Total Protein Albumin Globulin Albumin/Globulin Ratio Lipase Ethyl Alcohol < 10
[2019-07-27] MEDS: KCL 20 MEQ IN NS 1,000 ML 84 MEQ IV (15:41)
[2019-07-27] MEDS: ATORVASTATIN 20 MG TABLET 40 MG PO (21:22)
[2019-07-27] MEDS: lisinopriL 10 MG TABLET PO (21:23)
[2019-07-28] MEDS: KETOROLAC 30 MG/ML VIAL IV ×2 (00:02→12:19)
[2019-07-28] MEDS: KCL 20 MEQ IN NS 1,000 ML 84 MEQ IV (03:37)
[2019-07-28 04:05] VITALS: BP 131/82; PULSE 73; RESP 16; TEMP 36.4; O2SAT 96
[2019-07-28 05:21] LABS: Alanine Aminotransferase 36 IU/L (<50); Albumin 3.7 g/dL (3.5-5.0); Albumin Globulin Ratio 1.3 (1.0-2.8); Alkaline Phosphatase 91 U/L (38-126); Aspartate Aminotransferase 30 IU/L (17-59); Bilirubin Total 0.8 mg/dL (0.2-1.3); Blood Urea Nitrogen 12 mg/dL (9-20); Calcium 8.8 mg/dL (8.4-10.2); Carbon Dioxide 29 mmol/L (22-32); Chloride 102 mmol/L (98-107); Estimated Glomerular Filt Rate > 60.0 mL/min (>60); Globulin 2.8 g/dL (1.7-4.1); Glucose 222 mg/dL (70-100); HEMOLYSIS < 15 (0-50); Potassium 4.8 mmol/L (3.4-5.1); Sodium 135 mmol/L (137-145); Total Protein 6.5 g/dL (6.3-8.2)
[2019-07-28] MEDS: ONDANSETRON 4 MG/2 ML INJ IV (05:30)
[2019-07-28] MEDS: HYDROMORPHONE 0.5 MG INJ IV (05:30)
[2019-07-28 05:52] LABS: Lipase 537 U/L (23-300)
[2019-07-28 08:00] VITALS: BP 129/84; PULSE 83; RESP 18; TEMP 36.7; O2SAT 97
[2019-07-28] MEDS: INSULIN GLARGINE 100 UNIT/ML 3ML PEN 8 UNIT SUBCUT (08:12)
[2019-07-28] MEDS: INSULIN ASPART 100 UNIT/ML INSULN PEN SUBCUT ×2 (08:14→12:13)
--- NOTE | 2019-07-28 10:59 | PC.NURSE ---
Day Shift- Pt tolerated Full liquid diet for breakfast, wants an egg salad sandwich. Upper abd aching 3-4/10 and tender with palpation. Denies nausea. Had a shower, stated feeling tired after shower. Spoke with Dr. Limon at 1045, made aware Potassium level with this AM lab was 4.8. Order to discontinue IVF and S/L at this time. Order for AAT diet, order changed to ADA, lunch ordered and pt agreeable, wants to try different foods. Will monitor.
[2019-07-28 11:46] VITALS: BP 126/80; PULSE 88; RESP 18; TEMP 36.6; O2SAT 98
[2019-07-28 16:26] VITALS: BP 142/84; PULSE 71; RESP 18; TEMP 36.9; O2SAT 98
--- NOTE | 2019-07-28 18:24 | PM.DS.1 ---
History of Present Illness History of Present Illness Date Patient Seen: 07/28/19 Time Patient Seen: 18:24 Chief complaint: abdominal/back pain Narrative: As per Mariana COURTNEY: Vishal Purdy is a pleasant 49 y.o. male with diabetes type 2, essential hypertension, hyperlipidemia and status post cholecystectomy approximately 18 years ago, and a recent past hospitalization for acute pancreatitis presented today with worsening abdominal pain and cramping. He states he had no fever but he had sensations of feeling cold and chilly. The pain began last night and by this morning was unbearable he describes the pain as being 7/10. He feels it in the abdomen and kidney area described as more pressure and cramping. He did have nausea but did not have any vomit and he had one bout of diarrhea earler in the day. He denies shortness of breath, chest pain, dysuria, or constipation. He states his his blood sugars have been high and he is not probably been eating well since the state home orders. He is a recent transplant from [place], currently living in [place] and does not have a PCP. Discharge Providers Provider Date of admission: 07/27/19 10:29 Discharge Date: 07/29/19 Consults: 07/27/19 11:54 Consult to Dietitian, Adult Routine Comment: Reason For Exam: pt with diabetes: admits to eating poorly Discharge provider: Anthony Limon DO Summary Hospital Course Discharge Diagnosis: Please see hospital course by problem list noted below Hospital Course: Vishal Purdy is a 49-year-old male with a recent history of hospitalization for acute pancreatitis who return for recurrent symptoms. He is found to have an elevated lipase. He clinically improved 1. Acute pancreatitis, present on admission -patient is absent gallbladder, etiology is unknown however he has 3 medications that are class 3 for drug-induced pancreatitis including atorvastatin, lisinopril, and actos. Triglycerides were previously not above 500, and patient is not a drinker. -patient improved quite quickly and his diet was advanced. He tolerated a low-fat diet and was discharged home with pain medications. Given the fact that the patient has been taking lisinopril and atorvastatin for many years prior to episodes of acute pancreatitis, and recently has started Actos I recommended that he stop taking this medication. He will continue his metformin, and I did give her referral to the primary care office here in [facility] as he is looking to establish with a new primary care doctor. He is pending a new insurance and ideally he would be started on a new SGLT 2 inhibitor, however this was previously prescribed to him but he was unable to afford it as it was 600 dollars a month. 2. Diabetes type 2 poorly controlled with a hemoglobin A1c of 11 on 07/10/2019 -his home dose of metformin 1000 mg b.i.d. was held during admission, can resume as an outpatient -consider additional therapy options for diabetes control as an outpatient, including SGOT 2 inhibitors or insulin therapy. -patient is indicated an interest in getting in better physical shape as well as losing weight to better control his glucose 3. Essential hypertension with a admission blood pressure of 156/93, chronic, present on admission -continue home dose of lisinopril 10 mg p.o. at bedtime 4. Hyperlipidemia, chronic, present on admission -continue home dose of atorvastatin 40 mg p.o. daily 5. Hyponatremia, acute, present on admission -patient was adequately rehydrated with improvement in his sodium from 130 to 35 upon discharge. Dispo: discharged home Exam Vital Signs (past 8 hours): - 07/28/19 11:46 07/28/19 16:26 Temperature 97.8 F 98.4 F Pulse Rate 88 71 Respiratory Rate 18 18 Blood Pressure 126/80 142/84 H Pulse Oximetry 98 98 Oxygen Delivery Method Room Air Oxygen Flow Rate 0 Narrative Exam Narrative: GENERAL APPEARANCE: Well developed, well nourished, in no acute distress. SKIN: Inspection of the skin reveals no rashes, ulcerations or petechiae. HEENT: Normocephalic atraumatic, extraocular muscles are intact, oropharynx is clear and mucous membranes are moist, neck is supple without adenopathy NECK: Supple and symmetric. There was no thyroid enlargement, and no tenderness, or masses were felt. CHEST: Normal AP diameter and normal contour without any kyphoscoliosis. LUNGS: Auscultation of the lungs revealed no wheezes, rhonchi, or rales. CARDIOVASCULAR: There was a regular rate and rhythm without any murmurs, gallops, rubs. Peripheral pulses were 2+ and symmetric. ABDOMEN: Soft and nontender with normal bowel sounds. No ascites was noted. MUSCULOSKELETAL: There was no tenderness or effusions noted. Muscle strength and tone were normal. EXTREMITIES: No cyanosis, clubbing or edema. NEUROLOGIC: Alert and oriented x 3. Normal affect. Gait was normal. Strength is +5/5 in the Upper Extremities and Lower Extremities Bilaterally. Sensation to touch was normal. Objective Labs Result Diagrams: 07/27/19 01:35 07/28/19 04:45 Labs: Laboratory Results - last 24 hr 07/28/19 07/28/19 04:45 04:45 Sodium 135 L Potassium 4.8 Chloride 102 Carbon Dioxide 29 BUN 12 Creatinine 0.80 Estimated GFR > 60.0 BUN/Creatinine Ratio 15.0 Glucose 222 H D Calcium 8.8 Total Bilirubin 0.8 AST 30 ALT 36 Alkaline Phosphatase 91 Total Protein 6.5 Albumin 3.7 Globulin 2.8 Albumin/Globulin Ratio 1.3 Lipase 537 H Discharge Plan Discharge Plan Patient Disposition: Home Discharge comment: Your admitted to the hospital with pancreatitis. No exact etiology has been found. You should follow-up with the primary care provider for possible referral [facility] further [facility] evaluation. In the meantime I do recommend that you stop Actos and consider a new SG LT 2 inhibitor however this appears to be prohibitively expensive for you at this time. Please continue metformin, lisinopril, and Lipitor. I have given you a few days of pain medications. Please continue to follow a very low-fat diet. Discharge orders & Medications Prescriptions: New oxycodone 5 mg tablet 5 mg PO Q6H PRN (Reason: pain) 7 Days Qty: 15 RF: 0 Continued hydroxyzine pamoate [Vistaril] 50 mg Capsule 50 mg PO PRN PRN (Reason: anxiety) RF: 0 metformin 1,000 mg Tablet 1,000 mg PO BID RF: 0 loratadine [Claritin] 10 mg Tablet 10 mg PO DAILY RF: 0 Discontinued pioglitazone [Actos] 45 mg tablet 45 mg PO DAILY Qty: 30 RF: 0 Follow up/Referrals: David Saldivar MD [Physician] - 2 Weeks (Recurrent pancreatitis, hospital followup. Recommend referral for GI evaluation. Hx DM, HTN, HLD Stopped Actos and recommend SGLT2 based on insurance.) Discharge Health Status Health Concerns: Recurrent Pancreatitis Diet/Activity/Treatments Diet: Diet as Tolerated and Low-fat Activity: As tolerated Visit Report/Discharge Packet Instructions: DI for Pancreatitis, DI for Heart Failure, DI for Prescription Opioid Use Visit Report Forms: Congestive Heart Failure, Patient Portal/API, Stroke Signs & Symptoms Discharges patient from system. Discharge Date/Time: 07/28/19 19:09
[2019-07-28 18:39] VITALS: O2SAT 98
== END 2019-07-28 19:09 | disposition home or self-care (01) | DRG 439 ==
LOC: ED 04:04 → AC 04:22
PROVIDERS: Internal Medicine; Admitting Provider Nurse Practitioner Family; Emergency Provider Emergency Medicine; Visit Provider Nurse Practitioner Family
DX: K85.90 Acute pancreatitis without necrosis or infection, unspecified (principal); E87.1 Hypo-osmolality and hyponatremia; E11.65 Type 2 diabetes mellitus with hyperglycemia; I10 Essential (primary) hypertension; E78.5 Hyperlipidemia, unspecified; Z90.49 Acquired absence of other specified parts of digestive tract
CPT/HCPCS: 36415; 74177; 80053; 80320; 81003; 82962; 83615; 83690; 85025; 85379; 93005; 96374; 96375; 96376; 99284; G0378; J1170; J1885; J2405; Q9967

== ENCOUNTER 2019-09-25 13:08 | Emergency (ER) | payer OTHER, SELFPAY ==
[2019-07-27 04:22] VITALS: BMI 33.9
[2019-09-25] VITALS (14 sets, daily range): BP systolic 116–149; BP diastolic 67–89; PULSE 79–111; RESP 12–25; TEMP 36.6–36.7; O2SAT 97–100
--- NOTE | 2019-09-25 13:30 | DI.RAD.S_ITS ---
PROCEDURE: XR CHEST 1V INDICATIONS: SHORTNESS OF BREATH TECHNIQUE: One view of the chest was acquired. COMPARISON: None. FINDINGS: Surgical changes and devices: None. Lungs and pleura: Lungs are clear. No pleural effusions or pneumothorax. Mediastinum: Mediastinal contours appear normal. The heart appears to be mildly enlarged which may be exaggerated by portable technique. Bones and chest wall: No suspicious bony lesions. Overlying soft tissues appear unremarkable. IMPRESSION: Cardiomegaly without overt heart failure. No definite pneumonia. Dictated by: Noé Sanchez M.D. on 09/25/2019 at 13:37 Approved by: Noé Sanchez M.D. on 09/25/2019 at 13:38
[2019-09-25] MEDS: SODIUM CHLORIDE 0.9% 1,000 ML 999 ML IV (13:54)
[2019-09-25] MEDS: ONDANSETRON 4 MG/2 ML INJ IV (13:54)
[2019-09-25] MEDS: MORPHINE 4 MG/ML INJ IV (13:54)
[2019-09-25 14:02] LABS: Add Manual Diff / Slide Review NO; Basophils Absolute Auto 100 /uL (0-100); Basophils Percent Auto 0.6 % (0-2); Eosinophils Absolute Auto 300 /uL (0-450); Eosinophils Percent Auto 2.2 % (2-4); Hematocrit 44.2 % (41-53); Hemoglobin 15.2 g/dL (13.5-17.5); Lymphocytes Absolute Auto 1400 /uL (1100-4500); Lymphocytes Percent Auto 10.1 % (25-40); Mean Corpuscular HGB Conc 34.4 % (30-36); Mean Corpuscular Hemoglobin 29.4 PG (26-34); Mean Corpuscular Volume 85.6 fL (80-100); Monocytes Absolute Auto 700 /uL (0-900); Monocytes Percent Auto 5.3 % (3-14); Neutrophils Absolute Auto 11100 /uL (1500-7000); Neutrophils Percent Auto 81.8 % (50-75); Platelet Count 316 X10^3/uL (150-400); Red Blood Cell Count 5.16 X10^6/uL (4.5-5.9); Red Cell Distribution Width 14.8 % (11.6-14.8); White Blood Cell Count 13.5 X10^3/uL (4.5-11.0)
[2019-09-25 14:14] LABS: INR 0.9 (0.9-1.3); PTT Partial Thromboplastin Tim 34 SECONDS (26.4-36.2); Prothrombin Time 10.5 SECONDS (10.1-12.7)
[2019-09-25 14:15] LABS: Creatine Kinase 43 U/L (55-170); Lactate (Lactic Acid) 2.2 mmol/L (0.7-2.1); Magnesium 1.6 mg/dL (1.6-2.3)
[2019-09-25 14:16] LABS: Alanine Aminotransferase 33 IU/L (<50); Albumin 4.7 g/dL (3.5-5.0); Albumin Globulin Ratio 1.5 (1.0-2.8); Alkaline Phosphatase 96 U/L (38-126); BUN Creatinine Ratio 24.2 (6-22); Blood Urea Nitrogen 15 mg/dL (9-20); Carbon Dioxide 22 mmol/L (22-32); Chloride 102 mmol/L (98-107); Estimated Glomerular Filt Rate > 60.0 mL/min (>60); Globulin 3.2 g/dL (1.7-4.1); Glucose 321 mg/dL (70-100); Potassium 4.6 mmol/L (3.4-5.1); Sodium 138 mmol/L (137-145); Total Protein 7.9 g/dL (6.3-8.2)
[2019-09-25 14:19] LABS: D Dimer < 200 ng/mL (<230)
[2019-09-25 14:24] LABS: Aspartate Aminotransferase 32 IU/L (17-59); HEMOLYSIS 38 (0-50)
--- NOTE | 2019-09-25 14:25 | DI.CT.S_ITS ---
PROCEDURE: CT ANGIO CHEST PE PROTOCOL INDICATIONS: SOB, L CALF PAIN, TACHYCARDIA, L SHOULDER PAIN TECHNIQUE: After the administration of intravenous contrast, 2 mm thick sections acquired from the pulmonary apices to the posterior costophrenic angles. 3-dimensional maximum intensity projection (MIP) coronal and sagittal reformats were then acquired through the thorax. For radiation dose reduction, the following was used: automated exposure control, adjustment of mA and/or kV according to patient size. COMPARISON: [facility], CT, CT ABDOMEN PELVIS W CON, 07/27/2019, 2:22. FINDINGS: Image quality: Excellent. Pulmonary arteries: Pulmonary arteries are normal in size, and demonstrate no intraluminal filling defects to suggest central pulmonary embolism. Lungs and pleura: Lungs are clear. 7 mm nodule noted in the left upper lobe (series 5, image 127). 6 mm nodule noted in the right middle lobe (series 5, image 171). 2 mm subpleural nodule noted in the left lower lobe (series 5, image 180).. No pleural effusions or pneumothorax. Central and peripheral airways are patent. Mediastinum: Heart size is normal, without pericardial effusion. Enlarged mediastinal lymph nodes are noted. Largest node is in the right paratracheal mediastinum and measures 2.1 cm in short axis. Bilateral hilar lymphadenopathy is noted largest right hilar lymph node measures 1.6 cm in short axis. The largest left hilar lymph node measures 1.3 cm in short axis. Thoracic aorta is normal in caliber and enhancement. Esophagus is normal in caliber, without hiatal hernia. Bones and chest wall: No suspicious bony lesions. Ribs and thoracic spine appear intact throughout. Thyroid gland is within normal limits. No axillary or supraclavicular adenopathy. Abdomen: The gallbladder is surgically absent. Visualized upper abdominal solid organs appear normal in the early arterial phase of enhancement. IMPRESSION: 1. No pulmonary embolus. 2. Mediastinal and bilateral hilar lymphadenopathy which could be reactive or neoplastic including metastatic disease and lymphoma. Recommend correlation with clinical history and repeat CT scan of the chest in 3 months. 3. Bilateral lung nodules. Largest nodules in the left upper lobe and measures [address] scan in 6-12 months based on criteria outlined below. Fleischner Society criteria for SOLID lung nodule followup. Nodule size (mm)Low-risk patientHigh-risk patient<6 (single or multiple)No routine followup.Optional CT at 12 months. 6-8 (single or multiple)CT at 6-12 months, then optional CT at 18-24 mo.CT at 6-12 months, then CT at 18-24 months. >8 (single)CT at 3 months, PET-CT, or biopsy. Same as for low-risk pts. >8 (multiple)CT at 3-6 months, then optional CT at 18-24 mo.CT at 3-6 months, then CT at 18-24 months. Recommendations do not apply to lung cancer screening, patients with immunosuppression, or patients with known primary cancer. Dictated by: Sarah Do MD, PhD on 09/25/2019 at 14:33 Approved by: Sarah Do MD, PhD on 09/25/2019 at 14:40
[2019-09-25 14:26] LABS: Troponin I < 0.012 ng/mL (0.01-0.034)
--- NOTE | 2019-09-25 14:26 | PC.NURSE ---
patient states that he went on vacation to [place] the plane. After he got back his legs started to ache. He reports pain in his left leg and a little in his right leg as well combined with SOB and muscle aches. He also stated that he has been having nausea and vomiting and has been pretty weak. His lung sounds are clear bilaterally and he has not had cough since he's been here in the ED. His skin is clammy and cool but he does not have a fever.
[2019-09-25 14:30] LABS: Procalcitonin < 0.05 ng/mL (<0.5)
[2019-09-25 14:36] LABS: C-Reactive Protein Quant < 0.5 mg/dL (<1.0)
--- NOTE | 2019-09-25 14:53 | ED.SOB ---
HPI - SOB/Dyspnea General Chief Complaint: Shortness of Breath/Dyspnea Stated Complaint: SOB,Nausea, Abd Pain, Lt Shld Pain, Lft Calf Pain Time Seen by Provider: 09/25/19 13:56 Source: patient Mode of arrival: Ambulatory Limitations: no limitations History of Present Illness HPI Narrative: CC: Shortness of breath HPI: The patient is a 49-year-old male who came into the emergency department complaining that he was short of breath. His father suddenly in recently. The patient on Wednesday drove to [place] and then flew to [place]. He then flew back. He states that he developed pain in his left calf and right calf after the trip. The pain the left calf was worse in the right calf. He also developed diffuse body aches with aching in his hip knees arms elbows shoulders and back. He had arm diffuse back pain and states that his chest just felt very heavy and short of breath. He had increased pressure and chest discomfort on deep breathing and coughing in his left upper chest. He states that he was coughing and producing minimal sputum. He complained of left shoulder pain. He denies any fall or injury. He denies a history of pulmonary emboli. The patient states that he has had multiple episodes of pancreatitis in May and questionably July. He states that he is a type 2 diabetic and has a history of hypertension. He has had his gallbladder removed. He has high cholesterol. 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 He denies a history of myocardial infarction COPD or asthma. He does not smoke cigarettes drink alcohol or use marijuana. He denies any fever chills or sweats. He complains that he has had a headache. He denies that he has a history of rheumatoid arthritis lupus or polymyalgia rheumatica. He denies any palpitations but has had dizziness and lightheadedness. He has had intermittent nausea and vomiting but no coffee-ground emesis. He has had diarrhea without melena or hematochezia. And he has had no urinary symptoms. Related Data Home Medications Medication Instructions Recorded Confirmed hydroxyzine pamoate [Vistaril] 50 mg PO PRN PRN 07/27/19 09/25/19 loratadine [Claritin] 10 mg PO DAILY 07/27/19 09/25/19 metformin 1,000 mg PO BID 07/27/19 09/25/19 atorvastatin 40 mg PO BEDTIME 09/25/19 09/25/19 lisinopril 10 mg PO DAILY 09/25/19 09/25/19 Previous Rx's Medication Instructions Recorded cyclobenzaprine 10 mg PO TID PRN #15 tab 09/25/19 doxycycline hyclate 100 mg PO BID #14 tab 09/25/19 naproxen [Naprosyn] 500 mg PO BID PRN #20 tab 09/25/19 Allergies Allergy/AdvReac Type Severity Reaction Status Date / Time No Known Drug Allergies Allergy Verified 09/25/19 13:23 Review of Systems Review of Systems Narrative: His review of systems were all negative except for those mentioned in the history of present illness. Patient History Medical History Acute pancreatitis (Acute) Depression (Acute) Diabetes (Acute) Dyslipidemia (Acute) Hypertension (Acute) Surgical History Hx of cholecystectomy (Acute) S/P cardiac cath (Acute) Family History Father Acute cholecystitis Mother Acute cholecystitis Diverticulitis Cardiac arrhythmia Brother Acute cholecystitis Social History household members: family Smoking Status: Never smoker alcohol intake: never Smoking Status: Never smoker alcohol intake frequency: 0-2 drinks per day Substance Use Type: marijuana Exam Narrative Exam Narrative: PHYSICAL EXAM: CONSTITUTIONAL: Awake, Alert, Oriented, Coherent, Cooperative in NAD. Does not appear toxic or ill. HEAD: AT/NC EENT: PERRL, FROM of eyes, no discharge,. NOSE:No epistaxis or nasal drainage MOUTH:Oral mucosa is moist and pink, posterior pharynx is without erythema or exudate. NECK: Supple, no obvious JVD, Trachea is midline without stridor, no palpable LN. SPINE: Palpation of the cervical, Thoracic, Lumbar or Sacral spine reveals no gross deformity or tenderness. No CVA tenderness. THORAX: Mild tenderness to palpation over the left upper chest and left costal sternal margin without crepitus or subcutaneous air. LUNGS: Clear, symmetrical breath sounds without respiratory distress. HEART: Normal heart tones, regular rhythm and rate without murmur. ABDOMEN: Soft, non-tender, without guarding, rebound, rigidity or palpable mass. EXTREMITIES: No edema, deformity. There is bilateral posterior calf tenderness. Left calf is more tender than the right calf. SKIN: No rash, bruising, petechiae or purpura. NEURO: Awake, alert, oriented, conversive, cranial nerves II-XII are symmetrical , moves all 4 extremities and is ambulatory. MENTAL HEALTH: Patient appears to be mildly anxious. Initial Vital Signs Initial Vital Signs: Vital Signs Temperature 98.1 F 09/25/19 13:19 Pulse Rate 111 H 09/25/19 13:19 Respiratory Rate 18 09/25/19 13:19 Blood Pressure 149/79 H 09/25/19 13:19 Pulse Oximetry 99 09/25/19 13:19 Course Course Course Narrative: 1453: The patient's CT of the chest reveals no evidence of a pulmonary embolism. 2. Mediastinal and bilateral hilar lymphadenopathy which could be reactive or neoplastic including metastatic disease and lymphoma. Recommend correlation with clinical history and repeat CT scan of the chest in 3 months. 3. A g bilateral lung nodules. The largest nodule in the left upper lobe in measures 7 mm recommend follow-up CT scan in 6-12 months. Bilateral lung nodules. Largest nodules in the left upper lobe and measures [address] scan in 6-12 months based on criteria outlined below. CXR: Reveals no definite pneumonia. Cardiomegaly without congestive heart failure 1542: The patient's blood gases reveal a pH is 7.40 to a pCO2 of 36.1 a PO2 of 83 and O2 saturation 96% on room air FiO2 of 21%. 1633: The patient's EKG reveals a normal sinus rhythm with a ventricular rate of 100. LA interval is normal at 156 QRS is normal at 80 milliseconds QTC is normal at 407. [place] is normal. The patient has a QS slow wave in lead V1 with inverted T-wave. There are no other acute diagnostic ST or T-wave changes noted on the EKG. 1636: The patient's rapid [place] it is negative. The patient's ultrasound of both legs are negative for deep vein thrombophlebitis. His lipase is 122. The patient will be discharged home to be seen in follow-up by his primary care physician. Orders Ordered: ED Orders 09/25/19 13:28 EKG-12 Lead Stat 09/25/19 13:30 XR chest 1V Stat 09/25/19 13:50 Complete Blood Count AUTO DIFF Stat Comprehensive Metabolic Panel Stat D Dimer Stat Lactate (Lactic Acid) Stat Magnesium Stat Partial Thromboplastin Time Stat Procalcitonin Stat Prothrombin Time INR Stat Troponin & CK Cardiac Panel Stat 09/25/19 13:53 C-Reactive Protein Quant Stat Ferritin Stat Lipase Stat NT-proBNP (BNP-Adult 18+) Stat 09/25/19 14:25 CT angio chest PE protocol Stat 09/25/19 15:03 US periph venous low extrem bi Stat 09/25/19 15:29 Arterial Blood Gas Stat Discontinued Medications Sodium Chloride (Normal Saline 0.9%) 1,000 mls @ 200 mls/hr IV BOLUS ONE Stop: 09/25/19 18:30 Last Infusion: 09/25/19 16:20 Dose: 0 mls/hr Documented by: Admin: 09/25/19 13:54 Dose: 999 mls/hr Documented by: LATONIA Sodium Chloride (Normal Saline 0.9%) 1,000 mls @ 1,000 mls/hr IV BOLUS ONE Stop: 09/25/19 17:21 Last Infusion: 09/25/19 17:25 Dose: 0 mls/hr Documented by: Admin: 09/25/19 16:23 Dose: 1,000 mls/hr Documented by: SHAYY Ketorolac Tromethamine (Toradol) 30 mg IV NOW ONE Stop: 09/25/19 15:06 Last Admin: 09/25/19 15:35 Dose: 30 mg Documented by: SHAYY Morphine Sulfate (Morphine) 4 mg IV NOW ONE Stop: 09/25/19 13:31 Last Admin: 09/25/19 13:54 Dose: 4 mg Documented by: LATONIA Ondansetron HCl (Zofran) 4 mg IV NOW ONE Stop: 09/25/19 13:32 Last Admin: 09/25/19 13:54 Dose: 4 mg Documented by: LATONIA Vital Signs Vital signs: Vital Signs - 8 hr 09/25/19 13:19 09/25/19 13:32 09/25/19 13:33 Temperature 98.1 F 97.8 F Pulse Rate 111 H 109 H 104 H Respiratory Rate 18 25 H 18 Blood Pressure 149/79 H 141/89 H Pulse Oximetry 99 98 99 07/06/20 14:00 09/25/19 14:15 09/25/19 14:32 Temperature Pulse Rate 99 H 98 H 96 H Respiratory Rate 18 15 24 Blood Pressure 127/84 120/77 Pulse Oximetry 98 97 98 09/25/19 15:00 09/25/19 15:30 09/25/19 16:00 Temperature Pulse Rate 95 H 94 H 85 Respiratory Rate 18 19 24 Blood Pressure Pulse Oximetry 98 99 100 09/25/19 16:30 09/25/19 17:00 09/25/19 17:15 Temperature Pulse Rate 82 81 81 Respiratory Rate 12 13 14 Blood Pressure 118/68 116/67 122/71 Pulse Oximetry 97 98 100 09/25/19 17:30 09/25/19 17:32 Temperature Pulse Rate 82 79 Respiratory Rate 23 Blood Pressure 122/71 Pulse Oximetry 100 100 MDM - SOB/Dyspnea Medical Records Attestation: I reviewed the patient's medical records. Lab Data Attestation: I reviewed the patient's lab results. Result diagrams: 09/25/19 13:50 09/25/19 13:50 Labs: Lab Results 09/25/19 09/25/19 09/25/19 Range/Units 13:50 13:50 13:50 WBC 13.5 H (4.5-11.0) X10^3/uL RBC 5.16 (4.5-5.9) X10^6/uL Hgb 15.2 (13.5-17.5) g/dL Hct 44.2 (41-53) % MCV 85.6 (80-100) fL MCH 29.4 (26-34) PG MCHC 34.4 (30-36) % RDW 14.8 (11.6-14.8) % Plt Count 316 (150-400) X10^3/uL Neut % (Auto) 81.8 H (50-75) % Lymph % (Auto) 10.1 L (25-40) % [place] % (Auto) 5.3 (3-14) % Eos % (Auto) 2.2 (2-4) % Baso % (Auto) 0.6 (0-2) % Neut # (Auto) 15105 H (1109-6660) /uL Lymph # (Auto) 1400 (1716-9494) /uL [place] # (Auto) 700 (0-900) /uL Eos # (Auto) 300 (0-450) /uL Baso # (Auto) 100 (0-100) /uL PT 10.5 (10.1-12.7) SECONDS INR 0.9 (0.9-1.3) APTT 34 (26.4-36.2) SECONDS D-Dimer < 200 (<230) ng/mL ABG pH (7.35-7.45) ABG pCO2 (35-45) mmHg ABG pO2 (80-100) mmHg ABG HCO3 (22-26) mmol/L ABG Total CO2 (21-31) mmol/L ABG O2 Saturation (95-100) % ABG Base Excess (-2-2) mmol/L FiO2 Sodium (137-145) mmol/L Potassium (3.4-5.1) mmol/L Chloride (98-107) mmol/L Carbon Dioxide (22-32) mmol/L BUN (9-20) mg/dL Creatinine (0.66-1.25) mg/dL Estimated GFR (>60) mL/min BUN/Creatinine Ratio (6-22) Glucose (70-100) mg/dL Lactate (0.7-2.1) mmol/L Calcium (8.4-10.2) mg/dL Magnesium 1.6 (1.6-2.3) mg/dL Ferritin (18-464) ng/mL Total Bilirubin (0.2-1.3) mg/dL AST (17-59) IU/L ALT (<50) IU/L Alkaline Phosphatase (38-126) U/L Total Creatine Kinase 43 L (55-170) U/L CK-MB (CK-2) TNP CK-MB (CK-2) Rel Index TNP Troponin I < 0.012 (0.01-0.034) ng/mL C-Reactive Protein (<1.0) mg/dL NT-Pro-B Natriuret Pep (<125) pg/mL Total Protein (6.3-8.2) g/dL Albumin (3.5-5.0) g/dL Globulin (1.7-4.1) g/dL Albumin/Globulin Ratio (1.0-2.8) Lipase (23-300) U/L Procalcitonin (<0.5) ng/mL COVID-19 PCR (Negative) 09/25/19 09/25/19 09/25/19 Range/Units 13:50 13:50 13:50 WBC (4.5-11.0) X10^3/uL RBC (4.5-5.9) X10^6/uL Hgb (13.5-17.5) g/dL Hct (41-53) % MCV (80-100) fL MCH (26-34) PG MCHC (30-36) % RDW (11.6-14.8) % Plt Count (150-400) X10^3/uL Neut % (Auto) (50-75) % Lymph % (Auto) (25-40) % [place] % (Auto) (3-14) % Eos % (Auto) (2-4) % Baso % (Auto) (0-2) % Neut # (Auto) (4421-4328) /uL Lymph # (Auto) (0971-8711) /uL [place] # (Auto) (0-900) /uL Eos # (Auto) (0-450) /uL Baso # (Auto) (0-100) /uL PT (10.1-12.7) SECONDS INR (0.9-1.3) APTT (26.4-36.2) SECONDS D-Dimer (<230) ng/mL ABG pH (7.35-7.45) ABG pCO2 (35-45) mmHg ABG pO2 (80-100) mmHg ABG HCO3 (22-26) mmol/L ABG Total CO2 (21-31) mmol/L ABG O2 Saturation (95-100) % ABG Base Excess (-2-2) mmol/L FiO2 Sodium 138 (137-145) mmol/L Potassium 4.6 (3.4-5.1) mmol/L Chloride 102 (98-107) mmol/L Carbon Dioxide 22 (22-32) mmol/L BUN 15 (9-20) mg/dL Creatinine 0.62 L (0.66-1.25) mg/dL Estimated GFR > 60.0 (>60) mL/min BUN/Creatinine Ratio 24.2 H (6-22) Glucose 321 H (70-100) mg/dL Lactate 2.2 H (0.7-2.1) mmol/L Calcium 10.0 (8.4-10.2) mg/dL Magnesium (1.6-2.3) mg/dL Ferritin (18-464) ng/mL Total Bilirubin 1.0 (0.2-1.3) mg/dL AST 32 (17-59) IU/L ALT 33 (<50) IU/L Alkaline Phosphatase 96 (38-126) U/L Total Creatine Kinase (55-170) U/L CK-MB (CK-2) CK-MB (CK-2) Rel Index Troponin I (0.01-0.034) ng/mL C-Reactive Protein (<1.0) mg/dL NT-Pro-B Natriuret Pep (<125) pg/mL Total Protein 7.9 (6.3-8.2) g/dL Albumin 4.7 (3.5-5.0) g/dL Globulin 3.2 (1.7-4.1) g/dL Albumin/Globulin Ratio 1.5 (1.0-2.8) Lipase (23-300) U/L Procalcitonin < 0.05 (<0.5) ng/mL COVID-19 PCR (Negative) 09/25/19 09/25/19 09/25/19 Range/Units 13:53 13:53 14:20 WBC (4.5-11.0) X10^3/uL RBC (4.5-5.9) X10^6/uL Hgb (13.5-17.5) g/dL Hct (41-53) % MCV (80-100) fL MCH (26-34) PG MCHC (30-36) % RDW (11.6-14.8) % Plt Count (150-400) X10^3/uL Neut % (Auto) (50-75) % Lymph % (Auto) (25-40) % [place] % (Auto) (3-14) % Eos % (Auto) (2-4) % Baso % (Auto) (0-2) % Neut # (Auto) (2410-4109) /uL Lymph # (Auto) (7304-0670) /uL [place] # (Auto) (0-900) /uL Eos # (Auto) (0-450) /uL Baso # (Auto) (0-100) /uL PT (10.1-12.7) SECONDS INR (0.9-1.3) APTT (26.4-36.2) SECONDS D-Dimer (<230) ng/mL ABG pH (7.35-7.45) ABG pCO2 (35-45) mmHg ABG pO2 (80-100) mmHg ABG HCO3 (22-26) mmol/L ABG Total CO2 (21-31) mmol/L ABG O2 Saturation (95-100) % ABG Base Excess (-2-2) mmol/L FiO2 Sodium (137-145) mmol/L Potassium (3.4-5.1) mmol/L Chloride (98-107) mmol/L Carbon Dioxide (22-32) mmol/L BUN (9-20) mg/dL Creatinine (0.66-1.25) mg/dL Estimated GFR (>60) mL/min BUN/Creatinine Ratio (6-22) Glucose (70-100) mg/dL Lactate (0.7-2.1) mmol/L Calcium (8.4-10.2) mg/dL Magnesium (1.6-2.3) mg/dL Ferritin 51 (18-464) ng/mL Total Bilirubin (0.2-1.3) mg/dL AST (17-59) IU/L ALT (<50) IU/L Alkaline Phosphatase (38-126) U/L Total Creatine Kinase (55-170) U/L CK-MB (CK-2) CK-MB (CK-2) Rel Index Troponin I (0.01-0.034) ng/mL C-Reactive Protein < 0.5 (<1.0) mg/dL NT-Pro-B Natriuret Pep 38 (<125) pg/mL Total Protein (6.3-8.2) g/dL Albumin (3.5-5.0) g/dL Globulin (1.7-4.1) g/dL Albumin/Globulin Ratio (1.0-2.8) Lipase 122 (23-300) U/L Procalcitonin (<0.5) ng/mL COVID-19 PCR Negative (Negative) 09/25/19 09/25/19 Range/Units 15:29 16:04 WBC (4.5-11.0) X10^3/uL RBC (4.5-5.9) X10^6/uL Hgb (13.5-17.5) g/dL Hct (41-53) % MCV (80-100) fL MCH (26-34) PG MCHC (30-36) % RDW (11.6-14.8) % Plt Count (150-400) X10^3/uL Neut % (Auto) (50-75) % Lymph % (Auto) (25-40) % [place] % (Auto) (3-14) % Eos % (Auto) (2-4) % Baso % (Auto) (0-2) % Neut # (Auto) (1778-7876) /uL Lymph # (Auto) (1285-4796) /uL [place] # (Auto) (0-900) /uL Eos # (Auto) (0-450) /uL Baso # (Auto) (0-100) /uL PT (10.1-12.7) SECONDS INR (0.9-1.3) APTT (26.4-36.2) SECONDS D-Dimer (<230) ng/mL ABG pH 7.40 (7.35-7.45) ABG pCO2 36.1 (35-45) mmHg ABG pO2 83 (80-100) mmHg ABG HCO3 22 (22-26) mmol/L ABG Total CO2 24 (21-31) mmol/L ABG O2 Saturation 96 (95-100) % ABG Base Excess -2.0 (-2-2) mmol/L FiO2 21 Sodium (137-145) mmol/L Potassium (3.4-5.1) mmol/L Chloride (98-107) mmol/L Carbon Dioxide (22-32) mmol/L BUN (9-20) mg/dL Creatinine (0.66-1.25) mg/dL Estimated GFR (>60) mL/min BUN/Creatinine Ratio (6-22) Glucose (70-100) mg/dL Lactate 1.8 (0.7-2.1) mmol/L Calcium (8.4-10.2) mg/dL Magnesium (1.6-2.3) mg/dL Ferritin (18-464) ng/mL Total Bilirubin (0.2-1.3) mg/dL AST (17-59) IU/L ALT (<50) IU/L Alkaline Phosphatase (38-126) U/L Total Creatine Kinase (55-170) U/L CK-MB (CK-2) CK-MB (CK-2) Rel Index Troponin I (0.01-0.034) ng/mL C-Reactive Protein (<1.0) mg/dL NT-Pro-B Natriuret Pep (<125) pg/mL Total Protein (6.3-8.2) g/dL Albumin (3.5-5.0) g/dL Globulin (1.7-4.1) g/dL Albumin/Globulin Ratio (1.0-2.8) Lipase (23-300) U/L Procalcitonin (<0.5) ng/mL COVID-19 PCR (Negative) Discharge Plan Departure Patient Disposition: Home Clinical Impression: Bilateral calf pain, Cough, Generalized body aches, Shortness of breath Abdominal pain Qualifiers: Abdominal location: upper abdomen, unspecified Qualified Code(s): R10.10 - Upper abdominal pain, unspecified Chest pain Qualifiers: Chest pain type: unspecified Qualified Code(s): R07.9 - Chest pain, unspecified Discharge Date/Time: 09/25/19 17:33 Instructions: DI for Cough -- Adult, DI for Acute Bronchitis, DI for Viral Upper Respiratory Infection -- Adult Activity Restrictions/Additional Instructions: 1. You need to rest and to drink 2-4 L of fluid per day. 2. You need to follow-up with your primary care physician to be re-evaluated in 48-72 hours if not any better. 3. For your cough take the Zithromax as directed. 4. For the pain and discomfort take the Naprosyn 500 mg b.i.d.. 5. For muscle spasms take the cyclobenzaprine 10 mg 3 times a day as needed. 6. If you develop worsening pain fever shortness of breath feeling faint or passing-out you need to return to the emergency department. 7 your chest x-ray was negative for any acute pathology as well as your CT scan of your chest. Ultrasounds did not reveal any blood clots in her legs. 8. Your COVID-19 test was negative. Prescriptions: New doxycycline hyclate 100 mg tablet 100 mg PO BID Qty: 14 RF: 0 naproxen [Naprosyn] 500 mg tablet 500 mg PO BID PRN (Reason: pain) Qty: 20 RF: 0 cyclobenzaprine 10 mg tablet 10 mg PO TID PRN (Reason: muscle spasm) Qty: 15 RF: 0 No Action hydroxyzine pamoate [Vistaril] 50 mg Capsule 50 mg PO PRN PRN (Reason: anxiety) RF: 0 metformin 1,000 mg Tablet 1,000 mg PO BID RF: 0 loratadine [Claritin] 10 mg Tablet 10 mg PO DAILY RF: 0 atorvastatin 40 mg tablet 40 mg PO BEDTIME RF: 0 lisinopril 10 mg Tablet 10 mg PO DAILY RF: 0 Referrals: David Saldivar MD [Primary Care Provider] -
--- NOTE | 2019-09-25 15:03 | DI.US.S_ITS ---
PROCEDURE: US PERIPH VENOUS LOW EXTREM BI INDICATIONS: LEFT CALF PAIN TECHNIQUE: Real-time imaging, as well as color and pulse Doppler interrogation, were performed of the deep veins of both legs from the inguinal ligament to the popliteal fossa. COMPARISON: [facility], CT, CT ANGIO CHEST PE PROTOCOL, 09/25/2019, 14:15. FINDINGS: Right: The common femoral, femoral and popliteal veins are normally compressible, and free of intraluminal thrombus. Color and pulse Doppler demonstrate normal phasic intravascular flow. There is normal augmentation response to distal compression maneuver. Left: The common femoral, femoral and popliteal veins are normally compressible, and free of intraluminal thrombus. Color and pulse Doppler demonstrate normal phasic intravascular flow. There is normal augmentation response to distal compression maneuver. IMPRESSION: Negative exam. No lower extremity DVT in either leg. Dictated by: Cedric Diaz M.D. on 09/25/2019 at 16:13 Approved by: Cedric Diaz M.D. on 09/25/2019 at 16:14
[2019-09-25 15:31] LABS: COVID19 -Nasal RAPID Negative (Negative)
[2019-09-25] MEDS: KETOROLAC 60 MG/2 ML VIAL 30 MG IV (15:35)
[2019-09-25 15:45] LABS: HCO3 ABG 22 mmol/L (22-26); Oxygen Saturation ABG 96 % (95-100); PCO2 ABG 36.1 mmHg (35-45); PO2 ABG 83 mmHg (80-100); TCO2 ABG 24 mmol/L (21-31)
[2019-09-25 15:46] LABS: Fractionated Inspired Oxygen 21
--- NOTE | 2019-09-25 15:48 | PC.NURSE ---
covid test and other lab values are negative.
[2019-09-25 15:53] LABS: Reflexed Lactate in 2 Hours Y
[2019-09-25 16:19] LABS: Lipase 122 U/L (23-300)
[2019-09-25 16:22] LABS: Lactate 2HR (Lactic Acid Rflx) 1.8 mmol/L (0.7-2.1)
[2019-09-25] MEDS: SODIUM CHLORIDE 0.9% 1,000 ML 1000 ML IV (16:23)
[2019-09-25 16:45] LABS: Ferritin 51 ng/mL (18-464)
[2019-09-25 16:48] LABS: NT-proBNP (BNP-Adult 18+) 38 pg/mL (<125)
== END 2019-09-25 17:33 | disposition home or self-care (01) ==
PROVIDERS: Emergency Provider Emergency Medicine; PCP Internal Medicine
DX: R06.02 Shortness of breath (principal); M79.662 Pain in left lower leg; M79.661 Pain in right lower leg; R10.10 Upper abdominal pain, unspecified; R07.9 Chest pain, unspecified; R05 Cough; R51 Headache; E11.9 Type 2 diabetes mellitus without complications; I10 Essential (primary) hypertension
CPT/HCPCS: 36415; 36600; 71045; 71275; 80053; 82550; 82728; 82805; 83605; 83690; 83735; 83880; 84145; 84484; 85025; 85379; 85610; 85730; 86140; 87635; 93005; 93010; 93970; 96361; 96374; 96375; 99284; 99285; J1885; J2270; J2405

== ENCOUNTER → 2019-10-10 19:32 | Outpatient (ROUT) | payer OTHER, SELFPAY ==
[2019-07-27 04:22] VITALS: BMI 33.9
[2019-10-10 19:50] LABS: HEMOLYSIS < 15 (0-50); Iron 138 ug/dL (49-181)
[2019-10-10 19:56] LABS: Alanine Aminotransferase 57 IU/L (<50); Albumin 4.9 g/dL (3.5-5.0); Albumin Globulin Ratio 1.8 (1.0-2.8); Alkaline Phosphatase 109 U/L (38-126); Aspartate Aminotransferase 38 IU/L (17-59); BUN Creatinine Ratio 28.6 (6-22); Bilirubin Total 1.5 mg/dL (0.2-1.3); Blood Urea Nitrogen 18 mg/dL (9-20); Calcium 10.3 mg/dL (8.4-10.2); Carbon Dioxide 23 mmol/L (22-32); Chloride 98 mmol/L (98-107); Cholesterol 133 mg/dL (140-199); Creatine Kinase 41 U/L (55-170); Estimated Glomerular Filt Rate > 60.0 mL/min (>60); Globulin 2.8 g/dL (1.7-4.1); Glucose 346 mg/dL (70-100); HDL Cholesterol 25 mg/dL (40-60); HEMOLYSIS < 15 (0-50); Lactate Dehydrogenase 551 U/L (313-618); Potassium 4.4 mmol/L (3.4-5.1); Sodium 135 mmol/L (137-145); Total Protein 7.7 g/dL (6.3-8.2)
[2019-10-10 19:58] LABS: Add Manual Diff / Slide Review NO; Basophils Absolute Auto 100 /uL (0-100); Basophils Percent Auto 0.7 % (0-2); Eosinophils Absolute Auto 400 /uL (0-450); Eosinophils Percent Auto 4.1 % (2-4); Hematocrit 47.6 % (41-53); Hemoglobin 16.6 g/dL (13.5-17.5); Lymphocytes Absolute Auto 2200 /uL (1100-4500); Lymphocytes Percent Auto 22.7 % (25-40); Mean Corpuscular HGB Conc 34.9 % (30-36); Mean Corpuscular Hemoglobin 30.1 PG (26-34); Mean Corpuscular Volume 86.1 fL (80-100); Monocytes Absolute Auto 500 /uL (0-900); Monocytes Percent Auto 5.3 % (3-14); Neutrophils Absolute Auto 6400 /uL (1500-7000); Neutrophils Percent Auto 67.2 % (50-75); Platelet Count 326 X10^3/uL (150-400); Red Blood Cell Count 5.53 X10^6/uL (4.5-5.9); Red Cell Distribution Width 14.4 % (11.6-14.8); White Blood Cell Count 9.6 X10^3/uL (4.5-11.0)
[2019-10-10 20:02] LABS: C-Reactive Protein Quant < 0.5 mg/dL (<1.0); Percent Iron Saturation 36 % (20-50); Total Iron Binding Capacity 384 ug/dL (261-462); Transferrin 304 mg/dL (206-381); Triglycerides 736 mg/dL (35-150)
[2019-10-10 20:17] LABS: Erythrocyte Sedimentation Rate 5 MM/HR (0-15)
[2019-10-10 20:24] LABS: TSH w/ Reflex to FT4 1.65 uIU/mL (0.47-4.68)
[2019-10-10 20:28] LABS: Ferritin 53 ng/mL (18-464)
[2019-10-12 08:36] LABS: SARS CoV19 IgG Negative (Negative)
== END ==
PROVIDERS: PCP Internal Medicine; Visit Provider Internal Medicine
DX: R59.0 Localized enlarged lymph nodes (principal); E78.2 Mixed hyperlipidemia; M13.0 Polyarthritis, unspecified; E83.110 Hereditary hemochromatosis; E11.40 Type 2 diabetes mellitus with diabetic neuropathy, unspecified
CPT/HCPCS: 80053; 80061; 82550; 82728; 83540; 83550; 83615; 84443; 85025; 85651; 86140; 86769

== ENCOUNTER 2020-01-26 15:30 | Emergency (ER) | payer OTHER, SELFPAY ==
[2019-07-27 04:22] VITALS: BMI 33.9
[2020-01-26] VITALS (15 sets, daily range): BP systolic 114–150; BP diastolic 60–85; PULSE 88–109; RESP 15–23; TEMP 36.7–37.2; O2SAT 96–100; BMI 31.8
[2020-01-26 16:25] LABS: Add Manual Diff / Slide Review NO; Basophils Absolute Auto 0 /uL (0-100); Basophils Percent Auto 0.3 % (0-2); Eosinophils Absolute Auto 200 /uL (0-450); Hematocrit 46.2 % (41-53); Hemoglobin 16.4 g/dL (13.5-17.5); Lymphocytes Absolute Auto 1200 /uL (1100-4500); Mean Corpuscular HGB Conc 35.6 % (30-36); Mean Corpuscular Hemoglobin 30.4 PG (26-34); Mean Corpuscular Volume 85.5 fL (80-100); Monocytes Absolute Auto 600 /uL (0-900); Monocytes Percent Auto 6.3 % (3-14); Neutrophils Absolute Auto 7900 /uL (1500-7000); Neutrophils Percent Auto 79.4 % (50-75); Platelet Count 308 X10^3/uL (150-400); Red Blood Cell Count 5.41 X10^6/uL (4.5-5.9); Red Cell Distribution Width 14.5 % (11.6-14.8)
[2020-01-26 16:31] LABS: Prothrombin Time 11.4 SECONDS (10.1-12.7)
[2020-01-26 16:34] LABS: PTT Partial Thromboplastin Tim 36 SECONDS (26.4-36.2)
[2020-01-26 16:35] LABS: Alanine Aminotransferase 38 IU/L (<50); Albumin 4.9 g/dL (3.5-5.0); Albumin Globulin Ratio 1.3 (1.0-2.8); Alkaline Phosphatase 122 U/L (38-126); Aspartate Aminotransferase 29 IU/L (17-59); BUN Creatinine Ratio 21.7 (6-22); Bilirubin Total 1.6 mg/dL (0.2-1.3); Blood Urea Nitrogen 15 mg/dL (9-20); Calcium 9.6 mg/dL (8.4-10.2); Carbon Dioxide 26 mmol/L (22-32); Chloride 97 mmol/L (98-107); Estimated Glomerular Filt Rate > 60.0 mL/min (>60); Globulin 3.7 g/dL (1.7-4.1); Glucose 373 mg/dL (70-100); HEMOLYSIS 17 (0-50); Lipase 395 U/L (23-300); Potassium 4.1 mmol/L (3.4-5.1); Sodium 134 mmol/L (137-145); Total Protein 8.6 g/dL (6.3-8.2)
[2020-01-26 16:53] LABS: Bacteria Urine None Seen; Culture Indicated Urine Cult Not Indicated; RBC Urine None Seen (0-5/HPF); Squamous Epithelial Cell Urine 0-1 /HPF (0-5/HPF); WBC Urine 0-1/HPF (0-5/HPF)
--- NOTE | 2020-01-26 17:04 | DI.US.S_ITS ---
PROCEDURE: US ABDOMEN LIMITED INDICATIONS: PAIN; HX PANCREATITIS TECHNIQUE: Real-time scanning was performed of the abdominal and retroperitoneal organs, with image documentation. COMPARISON: [facility], CT, CT ABDOMEN PELVIS W CON, 07/27/2019, 2:22. FINDINGS: Liver is enlarged measuring 19 cm without focal mass. Gallbladder surgically absent. No biliary ductal dilatation. Pancreas is not well seen, but is grossly unremarkable as visualized. IMPRESSION: No acute process. Dictated by: Gerardo Benites M.D. on 01/26/2020 at 19:46 Approved by: Gerardo Benites M.D. on 01/26/2020 at 19:46
[2020-01-26] MEDS: SODIUM CHLORIDE 0.9% 1,000 ML 1000 ML IV (17:13)
[2020-01-26 17:25] LABS: Lactate (Lactic Acid) 1.9 mmol/L (0.7-2.1)
--- NOTE | 2020-01-26 17:49 | ED.ABDPAIN ---
HPI - Abdominal Pain General Chief Complaint: Abdominal Pain Stated Complaint: thinks pancreatitis Time Seen by Provider: 01/26/20 17:04 Source: patient Mode of arrival: Ambulatory Limitations: no limitations History of Present Illness HPI narrative: 49-year-old male nonsmoker with a history of pancreatitis presents with a chief complaint increasing pain over the past week or so in his epigastrium with radiation to his back. He states it feels quite similar to his last episode of pancreatitis. He has had nausea but denies any vomiting. He states his pain is worse with motion and with eating. He denies any fever or chills. He denies any trouble with urination. MD complaint: abdominal pain Onset (ago): day(s) Pain Consistency: constant Location: epigastric Severity: severe Quality: stabbing Radiation: back Relieving factors: rest Exacerbating factors: eating and movement Associated symptoms: nausea Related Data Home Medications Medication Instructions Recorded Confirmed hydroxyzine pamoate [Vistaril] 50 mg PO PRN PRN 07/27/19 09/25/19 loratadine [Claritin] 10 mg PO DAILY 07/27/19 09/25/19 metformin 1,000 mg PO BID 07/27/19 09/25/19 atorvastatin 40 mg PO BEDTIME 09/25/19 09/25/19 lisinopril 10 mg PO DAILY 09/25/19 09/25/19 Previous Rx's Medication Instructions Recorded cyclobenzaprine 10 mg PO TID PRN #15 tab 09/25/19 doxycycline hyclate 100 mg PO BID #14 tab 09/25/19 naproxen [Naprosyn] 500 mg PO BID PRN #20 tab 09/25/19 oxycodone 5 mg PO Q4-6H PRN #15 tab 01/26/20 Allergies Allergy/AdvReac Type Severity Reaction Status Date / Time No Known Drug Allergies Allergy Verified 09/25/19 13:23 Review of Systems Constitutional Constitutional: Denies chills, Denies fatigue, Denies fever(s), Denies frequent falls, Denies lethargy and Denies weakness Eyes Eyes: Denies change in vision, Denies eye discharge, Denies irritation and Denies loss of vision ENT Ears, Nose, Mouth, and Throat: Denies change in voice, Denies dizziness, Denies neck pain, Denies sore throat and Denies throat swelling Cardiovascular Cardiovascular: Denies chest pain, Denies irregular heart rhythm, Denies lightheadedness, Denies palpitations, Denies dyspnea, Denies dyspnea on exertion and Denies orthopnea Respiratory Respiratory: Denies cough, Denies dyspnea, Denies dyspnea on exertion and Denies wheezing Gastrointestinal Gastrointestinal: Reports abdominal pain, Denies change in bowel habits, Denies diarrhea, Reports nausea and Denies vomiting Musculoskeletal Musculoskeletal: Denies neck pain and Denies numbness Integumentary/Breasts Skin/Breast: Denies pruritus, Denies erythema, Denies rash and Denies wounds Neurologic Neurologic: Denies behavioral changes, Denies confusion, Denies dizziness, Denies frequent falls, Denies loss of vision, Denies numbness and Denies weakness Psychiatric Psychiatric: Denies anxiety, Denies behavioral changes, Denies confusion, Denies depression, Denies homicidal ideation and Denies suicidal ideation Endocrine Endocrine: Denies fatigue, Denies flushing and Denies palpitations Hematologic/Lymphatic Hematologic/Lymphatic: Denies easy bruising Allergic/Immunologic Allergic/Immunologic: Denies urticaria, Denies throat swelling and Denies wheezing Patient History Medical History Acute pancreatitis (Acute) Depression (Acute) Diabetes (Acute) Dyslipidemia (Acute) Hypertension (Acute) Surgical History Hx of cholecystectomy (Acute) S/P cardiac cath (Acute) Family History Father Acute cholecystitis Mother Acute cholecystitis Diverticulitis Cardiac arrhythmia Brother Acute cholecystitis Social History household members: family Smoking Status: Never smoker alcohol intake: never Smoking Status: Never smoker alcohol intake frequency: 0-2 drinks per day Substance Use Type: marijuana Exam Narrative Exam Narrative: GENERAL: [49] year old patient appears stated age. Well-nourished, well-developed patient, in mild distress. HEAD: Atraumatic. Normocephalic. EYES: Pupils equal round and reactive. Extraocular motions intact. No scleral icterus. No injection or drainage. ENT: Nose without bleeding, purulent drainage. Throat without erythema, tonsillar hypertrophy or exudate. Airway patent. NECK: Trachea midline. Non tender CARDIOVASCULAR: Regular rate and rhythm without murmurs, gallops, or rubs. RESPIRATORY: Clear to auscultation. Breath sounds equal bilaterally. No wheezes, rales, or rhonchi. GASTROINTESTINAL: Abdomen soft, tender to palpation in epigastrium, nondistended. EXTREMITIES: No edema or joint tenderness. BACK: Nontender without deformity or crepitance. No flank tenderness. NEURO: AOx3. SKIN: No rash or erythema of visible areas Initial Vital Signs Initial Vital Signs: Vital Signs Temperature 98.1 F 01/26/20 15:56 Pulse Rate 109 H 01/26/20 15:56 Respiratory Rate 18 01/26/20 15:56 Blood Pressure 149/70 H 01/26/20 15:56 Pulse Oximetry 98 01/26/20 15:56 Course Orders Ordered: ED Orders 01/26/20 19:50 CT abdomen pelvis w con Stat Discontinued Medications Hydromorphone HCl (Dilaudid) 0.5 mg IV NOW ONE Stop: 01/26/20 18:45 Last Admin: 01/26/20 18:52 Dose: 0.5 mg Documented by: LATONIA Hydromorphone HCl (Dilaudid) 0.5 mg IV NOW ONE Stop: 01/26/20 20:08 Last Admin: 01/26/20 20:28 Dose: 0.5 mg Documented by: JOLYNN Sodium Chloride (Normal Saline 0.9%) 1,000 mls @ 1,000 mls/hr IV BOLUS ONE Stop: 01/26/20 18:10 Last Infusion: 01/26/20 18:33 Dose: 0 mls/hr Documented by: Admin: 01/26/20 17:13 Dose: 1,000 mls/hr Documented by: JOLYNN Sodium Chloride (Normal Saline 0.9%) 1,000 mls @ 150 mls/hr IV CONT TONYA Last Infusion: 01/26/20 22:01 Dose: 0 mls/hr Documented by: Infusion: 01/26/20 21:57 Dose: 0 mls/hr Documented by: Admin: 01/26/20 18:51 Dose: 150 mls/hr Documented by: LATONIA Ondansetron HCl (Zofran) 4 mg IV NOW ONE Stop: 01/26/20 18:45 Last Admin: 01/26/20 18:52 Dose: 4 mg Documented by: LATONIA Ondansetron HCl (Zofran Odt Prepack) 1 bottle MISC SEEINSTR ONE Stop: 01/26/20 21:42 Last Admin: 01/26/20 21:58 Dose: 1 bottle Documented by: JOLYNN Oxycodone/Acetaminophen (Endocet 5/325 Prepack) 1 bottle MISC SEEINSTR ONE Stop: 01/26/20 21:42 Last Admin: 01/26/20 21:58 Dose: 1 bottle Documented by: JOLYNN Vital Signs Vital signs: Vital Signs - 8 hr 01/26/20 22:01 Temperature 99.0 F Pulse Rate 92 H Respiratory Rate 16 Blood Pressure 150/60 H Pulse Oximetry 98 MDM - Abdominal Pain Lab Data Result diagrams: 01/26/20 16:13 01/26/20 16:13 Labs: Lab Results 01/26/20 01/26/20 01/26/20 Range/Units 16:13 16:13 16:13 WBC 10.0 (4.5-11.0) X10^3/uL RBC 5.41 (4.5-5.9) X10^6/uL Hgb 16.4 (13.5-17.5) g/dL Hct 46.2 (41-53) % MCV 85.5 (80-100) fL MCH 30.4 (26-34) PG MCHC 35.6 (30-36) % RDW 14.5 (11.6-14.8) % Plt Count 308 (150-400) X10^3/uL Neut % (Auto) 79.4 H (50-75) % Lymph % (Auto) 12.0 L (25-40) % Granite % (Auto) 6.3 (3-14) % Eos % (Auto) 2.0 (2-4) % Baso % (Auto) 0.3 (0-2) % Neut # (Auto) 7900 H (3906-3997) /uL Lymph # (Auto) 1200 (4680-2845) /uL Granite # (Auto) 600 (0-900) /uL Eos # (Auto) 200 (0-450) /uL Baso # (Auto) 0 (0-100) /uL PT 11.4 (10.1-12.7) SECONDS INR 1.0 (0.9-1.3) APTT 36 D (26.4-36.2) SECONDS Sodium 134 L (137-145) mmol/L Potassium 4.1 (3.4-5.1) mmol/L Chloride 97 L (98-107) mmol/L Carbon Dioxide 26 (22-32) mmol/L BUN 15 (9-20) mg/dL Creatinine 0.69 (0.66-1.25) mg/dL Estimated GFR > 60.0 (>60) mL/min BUN/Creatinine Ratio 21.7 (6-22) Glucose 373 H (70-100) mg/dL Lactate (0.7-2.1) mmol/L Calcium 9.6 (8.4-10.2) mg/dL Total Bilirubin 1.6 H (0.2-1.3) mg/dL AST 29 (17-59) IU/L ALT 38 (<50) IU/L Alkaline Phosphatase 122 (38-126) U/L Total Protein 8.6 H (6.3-8.2) g/dL Albumin 4.9 (3.5-5.0) g/dL Globulin 3.7 (1.7-4.1) g/dL Albumin/Globulin Ratio 1.3 (1.0-2.8) Lipase 395 H (23-300) U/L Urine RBC (0-5/HPF) Urine WBC (0-5/HPF) Ur Squamous Epith Cells (0-5/HPF) Urine Bacteria (None) Ur Culture Indicated? 01/26/20 01/26/20 Range/Units 16:13 17:29 WBC (4.5-11.0) X10^3/uL RBC (4.5-5.9) X10^6/uL Hgb (13.5-17.5) g/dL Hct (41-53) % MCV (80-100) fL MCH (26-34) PG MCHC (30-36) % RDW (11.6-14.8) % Plt Count (150-400) X10^3/uL Neut % (Auto) (50-75) % Lymph % (Auto) (25-40) % Granite % (Auto) (3-14) % Eos % (Auto) (2-4) % Baso % (Auto) (0-2) % Neut # (Auto) (7668-9025) /uL Lymph # (Auto) (9422-6319) /uL Granite # (Auto) (0-900) /uL Eos # (Auto) (0-450) /uL Baso # (Auto) (0-100) /uL PT (10.1-12.7) SECONDS INR (0.9-1.3) APTT (26.4-36.2) SECONDS Sodium (137-145) mmol/L Potassium (3.4-5.1) mmol/L Chloride (98-107) mmol/L Carbon Dioxide (22-32) mmol/L BUN (9-20) mg/dL Creatinine (0.66-1.25) mg/dL Estimated GFR (>60) mL/min BUN/Creatinine Ratio (6-22) Glucose (70-100) mg/dL Lactate 1.9 (0.7-2.1) mmol/L Calcium (8.4-10.2) mg/dL Total Bilirubin (0.2-1.3) mg/dL AST (17-59) IU/L ALT (<50) IU/L Alkaline Phosphatase (38-126) U/L Total Protein (6.3-8.2) g/dL Albumin (3.5-5.0) g/dL Globulin (1.7-4.1) g/dL Albumin/Globulin Ratio (1.0-2.8) Lipase (23-300) U/L Urine RBC None seen (0-5/HPF) Urine WBC 0-1/hpf (0-5/HPF) Ur Squamous Epith Cells 0-1 /hpf (0-5/HPF) Urine Bacteria None seen (None) Ur Culture Indicated? Cult not indicated Point of care testing: Urine Dip Bedside Urine Glucose 1000 mg/dl Bedside Urine Bilirubin - Negative Bedside Urine Ketone + 15 Urine Specific [place] 1.020 Bedside Urine Occult Blood - Negative Bedside Urine pH 5.5 Bedside Urine Protein - Negative Bedside Urine Urobilinogen - Negative Bedside Urine Nitrite - Negative Bedside Urine Leukocytes - Negative Esterase Imaging Data US - abdomen: Radiologist's Impression: [address] [address] Ultrasound Report Signed Patient: Vishal Purdy CMR#: [id number] : 1970Acct:[id number] Age/Sex: 49 / MDate of Service: 01/26/20 Loc: ED Accession Number: [id number] Procedure: US abdomen limited Ordering Provider: Victoria Coombs D.O. PROCEDURE: US ABDOMEN LIMITED INDICATIONS: PAIN; HX PANCREATITIS TECHNIQUE: Real-time scanning was performed of the abdominal and retroperitoneal organs, with image documentation. COMPARISON: [facility], CT, CT ABDOMEN PELVIS W CON, 07/27/2019, 2:22. FINDINGS: Liver is enlarged measuring 19 cm without focal mass. Gallbladder surgically absent. No biliary ductal dilatation. Pancreas is not well seen, but is grossly unremarkable as visualized. IMPRESSION: No acute process. Dictated by: Gerardo Benites M.D. on 01/26/2020 at 19:46 Approved by: Gerardo Benites M.D. 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 Abdominal Pain Search Chart No Data to Display Total 45 MME/Day Pending Discharge ONSET 01/26/20 22:01 Vishal Purdy 49 M 1970 [place] [address] CT Scan Report Signed Patient: GurwinderVishal CMR#: [id number] : 1970Acct:[id number] Age/Sex: 49 / MDate of Service: 01/26/20 Loc: ED Accession Number: [id number] Procedure: CT abdomen pelvis w con Ordering Provider: Jamarcus Almanza D.O. PROCEDURE: CT ABDOMEN PELVIS W CON INDICATIONS: severe epigastric, back, and flank pain TECHNIQUE: After the administration of intravenous contrast, 5 mm thick sections acquired from the diaphragm to the symphysis. 5 mm coronal and sagittal reformats were acquired. For radiation dose reduction, the following was used: automated exposure control, adjustment of mA and/or kV according to patient size. COMPARISON: [facility], CT, CT ABDOMEN PELVIS W CON, 07/27/2019, 2:22. FINDINGS: Image quality: Excellent. ABDOMEN: Lung bases: 8 mm diameter nodule within the right anterior lung base is unchanged. Lung bases are otherwise clear. Heart size is normal. Solid organs: Liver is normal in size and enhancement. Gallbladder is surgically absent . Biliary system is non dilated. Pancreas enhances normally. Spleen is normal in size and enhancement. No adrenal nodules. Kidneys demonstrate normal size and enhancement, without hydronephrosis. Peritoneum and bowel: Bowel loops demonstrate normal wall thickness and caliber. No free fluid or air. Normal appendix. Nodes and vessels: No retroperitoneal or mesenteric adenopathy by size criteria. Aorta and inferior vena cava are normal in size. Miscellaneous: No ventral hernias. PELVIS: Genitourinary: Bladder wall thickness is normal. Miscellaneous: No inguinal hernias or adenopathy. Bones: No suspicious bony lesions. No vertebral body compression fractures. IMPRESSION: 1. No acute process. 2. Normal appendix. 3. No change in right middle lobe pulmonary nodule. Dictated by: Gerardo Benties M.D. on 01/26/2020 at 21:00 Approved by: Gerardo Benites M.D. on 01/26/2020 at 21:02 Discharge Plan Departure Patient Disposition: Home Clinical Impression: Abdominal pain Qualifiers: Abdominal location: epigastric Qualified Code(s): R10.13 - Epigastric pain Discharge Date/Time: 01/26/20 22:02 Instructions: DI for Abdominal Pain-Adult Activity Restrictions/Additional Instructions: 1. Drink plenty of fluids with frequent small sips. 2. For the next 24 hours a clear liquid diet is advised. After that please employ a B.R.A.T. diet which would include bananas, rice, apples, toast and other mild food items 3. Please take medications as directed. 4. Please follow-up with your doctor in the next 1-2 days. Call the office for an appointment. 5. Please return to the emergency Department for any worsening or persistent symptoms, such as increasing pain or fever. Prescriptions: New oxycodone 5 mg tablet 5 mg PO Q4-6H PRN (Reason: pain) Qty: 15 RF: 0 No Action hydroxyzine pamoate [Vistaril] 50 mg Capsule 50 mg PO PRN PRN (Reason: anxiety) RF: 0 metformin 1,000 mg Tablet 1,000 mg PO BID RF: 0 loratadine [Claritin] 10 mg Tablet 10 mg PO DAILY RF: 0 atorvastatin 40 mg tablet 40 mg PO BEDTIME RF: 0 lisinopril 10 mg Tablet 10 mg PO DAILY RF: 0 doxycycline hyclate 100 mg tablet 100 mg PO BID Qty: 14 RF: 0 naproxen [Naprosyn] 500 mg tablet 500 mg PO BID PRN (Reason: pain) Qty: 20 RF: 0 cyclobenzaprine 10 mg tablet 10 mg PO TID PRN (Reason: muscle spasm) Qty: 15 RF: 0 Referrals: David Saldivar MD [Primary Care Provider] -
[2020-01-26] MEDS: SODIUM CHLORIDE 0.9% 1,000 ML 150 ML IV (18:51)
[2020-01-26] MEDS: ONDANSETRON 4 MG/2 ML INJ IV (18:52)
[2020-01-26] MEDS: HYDROMORPHONE 0.5 MG INJ IV ×2 (18:52→20:28)
--- NOTE | 2020-01-26 19:50 | DI.CT.S_ITS ---
PROCEDURE: CT ABDOMEN PELVIS W CON INDICATIONS: severe epigastric, back, and flank pain TECHNIQUE: After the administration of intravenous contrast, 5 mm thick sections acquired from the diaphragm to the symphysis. 5 mm coronal and sagittal reformats were acquired. For radiation dose reduction, the following was used: automated exposure control, adjustment of mA and/or kV according to patient size. COMPARISON: [facility], CT, CT ABDOMEN PELVIS W CON, 07/27/2019, 2:22. FINDINGS: Image quality: Excellent. ABDOMEN: Lung bases: 8 mm diameter nodule within the right anterior lung base is unchanged. Lung bases are otherwise clear. Heart size is normal. Solid organs: Liver is normal in size and enhancement. Gallbladder is surgically absent . Biliary system is non dilated. Pancreas enhances normally. Spleen is normal in size and enhancement. No adrenal nodules. Kidneys demonstrate normal size and enhancement, without hydronephrosis. Peritoneum and bowel: Bowel loops demonstrate normal wall thickness and caliber. No free fluid or air. Normal appendix. Nodes and vessels: No retroperitoneal or mesenteric adenopathy by size criteria. Aorta and inferior vena cava are normal in size. Miscellaneous: No ventral hernias. PELVIS: Genitourinary: Bladder wall thickness is normal. Miscellaneous: No inguinal hernias or adenopathy. Bones: No suspicious bony lesions. No vertebral body compression fractures. IMPRESSION: 1. No acute process. 2. Normal appendix. 3. No change in right middle lobe pulmonary nodule. Dictated by: Gerardo Benites M.D. on 01/26/2020 at 21:00 Approved by: Gerardo Benites M.D. on 01/26/2020 at 21:02
[2020-01-26] MEDS: OXYCODONE/APAP 5/325 PREPACK 1 BOTTLE MISC (21:58)
[2020-01-26] MEDS: ONDANSETRON 4 MG ODT PREPACK 1 BOTTLE MISC (21:58)
== END 2020-01-26 22:02 | disposition home or self-care (01) ==
PROVIDERS: Emergency Medicine; Emergency Provider Emergency Medicine; PCP Internal Medicine
DX: R10.13 Epigastric pain (principal); R11.0 Nausea
CPT/HCPCS: 36415; 74177; 76705; 80053; 81003; 81015; 83605; 83690; 85025; 85610; 85730; 93005; 96361; 96374; 96375; 96376; 99284; J1170; J2405

== ENCOUNTER 2023-03-01 15:45 | Observation (INO) | payer OTHER, SELFPAY ==
[2019-07-27 04:22] VITALS: BMI 33.9
[2023-03-01] VITALS (44 sets, daily range): BP systolic 97–160; BP diastolic 53–83; PULSE 91–110; RESP 10–24; TEMP 36.6; O2SAT 93–99; BMI 34.8
--- NOTE | 2023-03-01 | DI.ECHO.S_ITS ---
[facility] +---------+ [facility] +---------+ : : [address] : : : : [id number] : : : : Phone: [phone] Echocardiogram Report + + :Name: ANA LILIA SOTO Study Date: 03/02/2023 Height: 72 in : :[facility] ReadingLocation: Weight: 262 lb : : Gender: Male BSA: 2.4 m2 : :: 1970 Age: 52 yrs BP: 100/70 mmHg: :Reason For Study: CHEST PAIN : :Ordering Physician: DOMINGO, : :DANIEL Performed By: Pooja Brock : :Referring: DANIEL LANE : + + Interpretation Summary The left ventricle is normal in size and wall thickness. Left ventricular systolic function appears normal without focal wall motion abnormalities. The ejection fraction is estimated to be 55-60%. Diastolic parameters suggest probable normal left ventricular diastolic function and normal filling pressures. The right ventricle is normal in size and function. Pulmonary artery pressures cannot be estimated because of the lack of a measurable TR jet velocity. The left atrial size is normal. There is no significant valvular heart disease. The aortic root is normal size. Procedure: A two-dimensional transthoracic echocardiogram with color flow and Doppler was performed. The study quality was technically adequate. There is no prior echocardiogram noted for this patient. The patient was in sinus rhythm with heart rates between 79-85 bpm during the exam. Left Ventricle: The left ventricle is normal in size and wall thickness. Left ventricular systolic function appears normal without focal wall motion abnormalities. The ejection fraction is estimated to be 55-60%. Diastolic parameters suggest probable normal left ventricular diastolic function and normal filling pressures. Right Ventricle: The right ventricle is normal in size and function. Atria: The left atrial size is normal. Right atrial size is normal. There is no Doppler evidence for an interatrial shunt. Mitral Valve: The mitral valve is normal in structure and function. There is trace mitral regurgitation. Aortic Valve: The aortic valve is trileaflet. The aortic valve opens well. There is no aortic valve stenosis. No aortic regurgitation is present. Tricuspid Valve: The tricuspid valve is normal in structure and function. There is trace tricuspid regurgitation. Pulmonary artery pressures cannot be estimated because of the lack of a measurable TR jet velocity. Pulmonic Valve: The pulmonic valve leaflets are thin and pliable; valve motion is normal. There is no pulmonic valvular regurgitation. There is no significant valvular heart disease. Great Vessels: The aortic root is normal size. The dimensions of the ascending aorta are normal. The IVC is of normal diameter and collapses greater than 50% with a sniff. This suggests a low right atrial pressure of 3 mm Hg. Pericardium/ Pleura There is no pericardial effusion. There is no pleural effusion. MMode/2D Measurements & Calculations LVIDd: 4.3 cm LVOT diam: 2.2 cm LVIDs: 3.2 cm Ao root diam: 3.0 cm FS: 27.1 % asc Aorta Diam: 3.0 cm IVSd: 0.78 cm Ao Arch Diam (Prox Trans): 3.1 cm LVPWd: 0.91 cm LV marquez. diameter/BSA (cm/m^2): 1.8 LV sys. diameter/BSA (cm/m^2): 1.3 LA A2 area: 14.6 cm2 RA long axis: 4.4 cm LA A4 area: 12.7 cm2 RA area: 11.8 cm2 LA length (vol): 4.7 cm RA vol: 27.1 ml LA vol: 33.7 ml RA : 11.3 ml/m2 LA vol index: 14.1 ml/m2 IVC diam: 1.2 cm RVD1 (basal): 3.0 cm RVD2 (mid): 2.8 cm TAPSE: 2.1 cm Doppler Measurements & Calculations Ao V2 max: 142.2 cm/sec LVOT Max Jason: 102.6 cm/sec Ao V2 mean: 109.0 cm/sec LV V1 max P.2 mmHg Ao max P.1 mmHg LV V1 VTI: 19.9 cm Ao mean P.1 mmHg JOSUE(I,D): 2.7 cm2 Ao V2 VTI: 28.6 cm JOSUE(V,D): 2.8 cm2 sev ratio: 0.70 JOSUE indexed to BSA (cm^2/m^2): 1.1 MV E max jason: 103.2 cm/sec PA V2 max: 73.2 cm/sec MV A max jason: 79.6 cm/sec PA V2 mean: 55.9 cm/sec MV E/A: 1.3 PA mean P.3 mmHg Med Peak E' Jason: 6.7 cm/sec PA pr(Accel): 43.0 mmHg E/E' med: 15.3 Lat Peak E' Jason: 7.7 cm/sec E/E' lat: 13.5 E/e' average: 14.4 MV dec time: 0.24 sec SV(LVOT): 77.4 ml Reading Physician:10:28 AM
--- NOTE | 2023-03-01 16:07 | DI.RAD.S_ITS ---
PROCEDURE: XR CHEST 1V INDICATIONS: chest pain TECHNIQUE: One view of the chest was acquired. COMPARISON: [facility], CR, XR CHEST 1V, 09/25/2019, 14:03. FINDINGS: Surgical changes and devices: None. Lungs and pleura: Lungs are clear. No pleural effusions or pneumothorax. Mediastinum: Mediastinal contours appear normal. Heart size is normal. Bones and chest wall: No suspicious bony lesions. Overlying soft tissues appear unremarkable. IMPRESSION: No acute process. Dictated by: Gerardo Benites M.D. on 03/01/2023 at 16:27 Approved by: Gerardo Benites M.D. on 03/01/2023 at 16:27
--- NOTE | 2023-03-01 16:09 | ED.CHESTPAIN ---
HPI - Chest Pain <Victoria Coombs, DO - Last Filed: 03/02/23 07:27> General Chief Complaint: Chest Pain Stated Complaint: tIGHT CHEST SOB. 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 Patient states he had chest pain started at 2:00 a.m. this morning sort of to the substernal and left of the chest has been constant but waxing and waning in intensity. Has never resolved he states it felt worse when he is lying flat he does not note anything makes it feel better. He has felt short of breath with it. He is felt lightheaded but had no syncope. He is felt sweaty on his palms. Denies nausea or vomiting, no swelling of the extremities. No rash or skin changes. No fevers chills or recent infections last few days but states he did have some upper respiratory viral symptoms in the last month. Patient has had pancreatitis in the past he states that was more in his back. He states with his myocarditis was more back pain as well. He did have a heart catheterization which was negative but developed pseudoaneurysm. Patient is on aspirin 81 mg daily, insulin, metformin, lisinopril, atorvastatin, duloxetine buspirone. Had a cholecystectomy in 2001. Denies any drug allergies. No tobacco, no alcohol, occasional THC denies any recreational drugs. [facility] care is [facility]. Does not follow with cardiology did not follow up with them after his hospitalization for myocarditis in 2002. Related Data Home Medications Medication Instructions Recorded Confirmed loratadine 10 mg tablet (Claritin) 10 mg PO DAILY 07/27/19 01/11/23 metformin 1,000 mg tablet 1,000 mg PO BID 07/27/19 01/11/23 atorvastatin 40 mg tablet 40 mg PO BEDTIME 09/25/19 01/11/23 lisinopril 10 mg tablet 10 mg PO DAILY 09/25/19 01/11/23 albuterol sulfate 90 mcg/actuation inhalation 01/11/23 01/11/23 aerosol inhaler buspirone 5 mg tablet 10 mg PO BID 01/11/23 01/11/23 clonazepam 1 mg tablet mg PO 01/11/23 01/11/23 dapagliflozin propanediol 10 mg 10 mg PO DAILY 01/11/23 01/11/23 tablet () duloxetine 40 mg capsule,delayed 40 mg PO DAILY 01/11/23 01/11/23 release insulin glargine 100 unit/mL (3 unit SUBCUT 01/11/23 01/11/23 mL) subcutaneous pen (Lantus Solostar U-100 Insulin) Allergies Allergy/AdvReac Type Severity Reaction Status Date / Time No Known Drug Allergies Allergy Verified 01/11/23 16:50 Review of Systems <Victoria Coombs DO - Last Filed: 03/02/23 07:27> Review of Systems ROS Unobtainable: All systems reviewed & are unremarkable except as noted in HPI and below Patient History <Victoria Coombs DO - Last Filed: 03/02/23 07:27> Medical History Cellulitis of great toe, right Acute pancreatitis Depression Diabetes Dyslipidemia Hypertension Surgical History S/P cardiac cath Hx of cholecystectomy Family History Father Acute cholecystitis Mother Acute cholecystitis Diverticulitis Cardiac arrhythmia Brother Acute cholecystitis Social History household members: family Smoking Status: Never smoker alcohol intake: never Smoking Status: Never smoker alcohol intake frequency: 0-2 drinks per day Substance Use Type: marijuana Exam <Victoria Coombs DO - Last Filed: 03/02/23 07:27> Narrative Exam Narrative: GENERAL: Alert and oriented x three, mild distress. HEENT: Head normocephalic, atraumatic, EOMI, pupils reactive, face symmetric, moist mucous membranes NECK: Supple, full range of motion CARDIOVASCULAR: Regular rate and rhythm without murmurs, rubs or gallops. No JVD. No swelling bilateral lower extremities. RESPIRATORY: Breath sounds equal bilaterally, no wheezes rales or rhonchi. No tachypnea or accessory muscle use. ABDOMEN: Soft, nontender. Normoactive bowel sounds all 4 quadrants. No guarding or rebound, rigidity, no mass : No CVA tenderness EXTREMITIES: Normal range of motion, no clubbing or edema. Neurovascularly intact NEUROLOGICAL: Cranial nerves II through XII grossly intact. Moving all extremities SKIN: Warm, dry, no petechiae, no rashes or lesions. Initial Vital Signs Initial Vital Signs: Vital Signs Temperature 98 F 03/01/23 16:04 Pulse Rate 102 H 03/01/23 16:04 Respiratory Rate 12 03/01/23 16:04 Blood Pressure 157/82 H 03/01/23 16:04 Pulse Oximetry 99 03/01/23 16:04 Oxygen Delivery Method Room Air 03/01/23 16:04 <Edilberto Moses MD - Last Filed: 03/02/23 00:39> Initial Vital Signs Initial Vital Signs: Vital Signs Temperature 98 F 03/01/23 16:04 Pulse Rate 102 H 03/01/23 16:04 Respiratory Rate 12 03/01/23 16:04 Blood Pressure 157/82 H 03/01/23 16:04 Pulse Oximetry 99 03/01/23 16:04 Oxygen Delivery Method Room Air 03/01/23 16:04 Course <Victoria Coombs DO - Last Filed: 03/02/23 07:27> Orders Ordered: Albuterol (Albuterol 2.5 Mg/3 Ml Neb (Adult)) 2.5 mg INH [id number] PRN PRN Reason: Dyspnea Aspirin (Aspirin Ec 81 Mg Tablet) 81 mg PO DAILY [facility] Atorvastatin Calcium (Atorvastatin 20 Mg Tablet) 40 mg PO BEDTIME TONYA Last Admin: 03/01/23 22:30 Dose: 40 mg Documented By: CHELA Buspirone HCl (Buspirone 5 Mg Tablet) 10 mg PO BID TONYA Last Admin: 03/01/23 22:31 Dose: 10 mg Documented By: CHELA Clonazepam (Clonazepam 0.5 Mg Tablet) 1 mg PO BID PRN PRN Reason: Anxiety Last Admin: 03/01/23 20:53 Dose: 1 mg Documented By: CHELA Duloxetine HCl (Duloxetine 20 Mg Capsule) 40 mg PO DAILY [facility] Dextrose (D10w) 100 mls @ 1,200 mls/hr IV PRN PRN PRN Reason: Hypoglycemia Insulin Glargine (Insulin Glargine 100 Unit/Ml 3ml Pen) 60 unit SUBCUT BEDTIME TONYA Last Admin: 03/01/23 22:23 Dose: 40 unit Documented By: CHELA Co-signed By: ANASTACIA Insulin Human Lispro (Insulin Lispro 100 Unit/Ml 3ml Vial) 0 unit SUBCUT ACHS TONYA; Protocol Lisinopril (Lisinopril 10 Mg Tablet) 10 mg PO BEDTIME [facility] Last Admin: 03/01/23 23:47 Dose: Not Given Documented By: RAHEEL Lorazepam (Lorazepam 2 Mg/Ml Inj) 0.25 mg IV Q4HR PRN PRN Reason: Anxiety Melatonin (Melatonin 3 Mg Tablet) 9 mg PO BEDTIME PRN PRN Reason: insomnia Metformin HCl (Metformin Hcl 500 Mg Tablet) 1,000 mg PO BID [facility] Last Admin: 03/01/23 22:31 Dose: 1,000 mg Documented By: CHELA Morphine Sulfate (Morphine 2 Mg/Ml Inj) 2 mg IV Q5MIN PRN PRN Reason: Chest Pain Nitroglycerin (Nitroglycerin 0.4 Mg Sl Tab) 0.4 mg SL [id number] PRN PRN Reason: Chest Pain Non-Formulary Medication (Dapagliflozin Propanediol [Farxiga]) 10 mg PO DAILY [facility] Discontinued Medications Aspirin (Aspirin 81 Mg Chew Tab) 324 mg PO NOW ONE Stop: 03/01/23 16:08 Last Admin: 03/01/23 16:17 Dose: 324 mg Documented By: CHELA Sodium Chloride (Normal Saline 0.9%) 1,000 mls @ 1,000 mls/hr IV BOLUS ONE Stop: 03/01/23 17:18 Last Infusion: 03/01/23 18:45 Dose: Infused Documented By: Admin: 03/01/23 16:21 Dose: 1,000 mls/hr Documented By: CHELA Metoprolol Tartrate (Metoprolol Tartrate 5 Mg/5 Ml Inj) 5 mg IV NOW ONE Stop: 03/01/23 20:31 Last Admin: 03/01/23 20:57 Dose: 5 mg Documented By: CHELA Nitroglycerin (Nitroglycerin 0.4 Mg Sl Tab) 0.4 mg SL [id number] PRN PRN Reason: Chest Pain Last Admin: 03/01/23 16:41 Dose: 0.4 mg Documented By: Admin: 03/01/23 16:34 Dose: 0.4 mg Documented By: Admin: 03/01/23 16:24 Dose: 0.4 mg Documented By: CHELA Nitroglycerin (Nitroglycerin Oint 1 Inch/Gm Oint...G.) 1 inch TOP NOW ONE Stop: 03/01/23 17:06 Last Admin: 03/01/23 17:08 Dose: 1 inch Documented By: CHELA Vital Signs Vital signs: Vital Signs - 8 hr 03/01/23 16:40 03/01/23 16:40 03/01/23 16:41 Pulse Rate 108 H 109 H Respiratory Rate 12 Blood Pressure 149/69 H 149/69 H Pulse Oximetry 96 Oxygen Delivery Method Room Air 03/01/23 16:45 03/01/23 17:00 03/01/23 17:00 Pulse Rate 110 H 101 H Respiratory Rate 12 11 L Blood Pressure 149/73 H Pulse Oximetry 96 95 Oxygen Delivery Method 03/01/23 17:08 03/01/23 17:15 03/01/23 17:15 Pulse Rate 100 H 99 H Respiratory Rate 10 L Blood Pressure 149/73 H 149/73 H Pulse Oximetry 96 Oxygen Delivery Method 03/01/23 17:30 03/01/23 17:30 03/01/23 17:45 Pulse Rate 96 H 95 H Respiratory Rate 13 14 Blood Pressure 145/72 H Pulse Oximetry 95 94 Oxygen Delivery Method 03/01/23 17:45 03/01/23 18:00 03/01/23 18:15 Pulse Rate 96 H 96 H Respiratory Rate 16 13 Blood Pressure 160/74 H Pulse Oximetry 96 96 Oxygen Delivery Method 03/01/23 18:30 03/01/23 18:45 03/01/23 19:00 Pulse Rate 97 H 103 H 103 H Respiratory Rate 13 12 16 Blood Pressure Pulse Oximetry 96 95 96 Oxygen Delivery Method 03/01/23 19:04 03/01/23 19:04 03/01/23 19:15 Pulse Rate 104 H 101 H Respiratory Rate 15 15 Blood Pressure 124/74 Pulse Oximetry 96 96 Oxygen Delivery Method Room Air 03/01/23 19:15 03/01/23 19:30 03/01/23 19:30 Pulse Rate 106 H Respiratory Rate 12 Blood Pressure 122/72 128/76 Pulse Oximetry 96 Oxygen Delivery Method <Edilberto L Slack, MD - Last Filed: 03/02/23 00:39> Orders Ordered: Albuterol (Albuterol 2.5 Mg/3 Ml Neb (Adult)) 2.5 mg INH [id number] PRN PRN Reason: Dyspnea Aspirin (Aspirin Ec 81 Mg Tablet) 81 mg PO DAILY [facility] Atorvastatin Calcium (Atorvastatin 20 Mg Tablet) 40 mg PO BEDTIME [facility] Last Admin: 03/01/23 22:30 Dose: 40 mg Documented By: CHELA Buspirone HCl (Buspirone 5 Mg Tablet) 10 mg PO BID [facility] Last Admin: 03/01/23 22:31 Dose: 10 mg Documented By: CHELA Clonazepam (Clonazepam 0.5 Mg Tablet) 1 mg PO BID PRN PRN Reason: Anxiety Last Admin: 03/01/23 20:53 Dose: 1 mg Documented By: CHELA Duloxetine HCl (Duloxetine 20 Mg Capsule) 40 mg PO DAILY [facility] Dextrose (D10w) 100 mls @ 1,200 mls/hr IV PRN PRN PRN Reason: Hypoglycemia Insulin Glargine (Insulin Glargine 100 Unit/Ml 3ml Pen) 60 unit SUBCUT BEDTIME [facility] Last Admin: 03/01/23 22:23 Dose: 40 unit Documented By: CHELA Co-signed By: ANASTACIA Insulin Human Lispro (Insulin Lispro 100 Unit/Ml 3ml Vial) 0 unit SUBCUT [facility]; Protocol Lisinopril (Lisinopril 10 Mg Tablet) 10 mg PO BEDTIME [facility] Last Admin: 03/01/23 23:47 Dose: Not Given Documented By: RAHEEL Lorazepam (Lorazepam 2 Mg/Ml Inj) 0.25 mg IV Q4HR PRN PRN Reason: Anxiety Melatonin (Melatonin 3 Mg Tablet) 9 mg PO BEDTIME PRN PRN Reason: insomnia Metformin HCl (Metformin Hcl 500 Mg Tablet) 1,000 mg PO BID [facility] Last Admin: 03/01/23 22:31 Dose: 1,000 mg Documented By: CHELA Morphine Sulfate (Morphine 2 Mg/Ml Inj) 2 mg IV Q5MIN PRN PRN Reason: Chest Pain Nitroglycerin (Nitroglycerin 0.4 Mg Sl Tab) 0.4 mg SL [id number] PRN PRN Reason: Chest Pain Non-Formulary Medication (Dapagliflozin Propanediol [Farxiga]) 10 mg PO DAILY [facility] Discontinued Medications Aspirin (Aspirin 81 Mg Chew Tab) 324 mg PO NOW ONE Stop: 03/01/23 16:08 Last Admin: 03/01/23 16:17 Dose: 324 mg Documented By: CHELA Sodium Chloride (Normal Saline 0.9%) 1,000 mls @ 1,000 mls/hr IV BOLUS ONE Stop: 03/01/23 17:18 Last Infusion: 03/01/23 18:45 Dose: Infused Documented By: Admin: 03/01/23 16:21 Dose: 1,000 mls/hr Documented By: CHELA Metoprolol Tartrate (Metoprolol Tartrate 5 Mg/5 Ml Inj) 5 mg IV NOW ONE Stop: 03/01/23 20:31 Last Admin: 03/01/23 20:57 Dose: 5 mg Documented By: CHELA Nitroglycerin (Nitroglycerin 0.4 Mg Sl Tab) 0.4 mg SL [id number] PRN PRN Reason: Chest Pain Last Admin: 03/01/23 16:41 Dose: 0.4 mg Documented By: Admin: 03/01/23 16:34 Dose: 0.4 mg Documented By: Admin: 03/01/23 16:24 Dose: 0.4 mg Documented By: CHELA Nitroglycerin (Nitroglycerin Oint 1 Inch/Gm Oint...G.) 1 inch TOP NOW ONE Stop: 03/01/23 17:06 Last Admin: 03/01/23 17:08 Dose: 1 inch Documented By: CHELA Reevaluation(s) Reevaluation #1: At 7:15 p.m., I personally took a history and examined the patient. Reports chest pain that began early in the morning, has persisted intermittently throughout the day not worsened with exertion but responsive to nitrates. Has risk factors including elevated cholesterol diabetes hypertension family history and second-degree relatives have she is in nonsmoker. Previous negative cardiac catheterization secondary to myocarditis 20 years ago. EKGs were reviewed all other clinical data were reviewed including 2 normal troponins and normal D-dimer no acute chest on chest x-ray. Patient is presently pain free. We discussed admission for further evaluation he is agreeable. Vital Signs Vital signs: Vital Signs - 8 hr 03/01/23 16:40 03/01/23 16:40 03/01/23 16:41 Pulse Rate 108 H 109 H Respiratory Rate 12 Blood Pressure 149/69 H 149/69 H Pulse Oximetry 96 Oxygen Delivery Method Room Air 03/01/23 16:45 03/01/23 17:00 03/01/23 17:00 Pulse Rate 110 H 101 H Respiratory Rate 12 11 L Blood Pressure 149/73 H Pulse Oximetry 96 95 Oxygen Delivery Method 03/01/23 17:08 03/01/23 17:15 03/01/23 17:15 Pulse Rate 100 H 99 H Respiratory Rate 10 L Blood Pressure 149/73 H 149/73 H Pulse Oximetry 96 Oxygen Delivery Method 03/01/23 17:30 03/01/23 17:30 03/01/23 17:45 Pulse Rate 96 H 95 H Respiratory Rate 13 14 Blood Pressure 145/72 H Pulse Oximetry 95 94 Oxygen Delivery Method 03/01/23 17:45 03/01/23 18:00 03/01/23 18:15 Pulse Rate 96 H 96 H Respiratory Rate 16 13 Blood Pressure 160/74 H Pulse Oximetry 96 96 Oxygen Delivery Method 03/01/23 18:30 03/01/23 18:45 03/01/23 19:00 Pulse Rate 97 H 103 H 103 H Respiratory Rate 13 12 16 Blood Pressure Pulse Oximetry 96 95 96 Oxygen Delivery Method 03/01/23 19:04 03/01/23 19:04 03/01/23 19:15 Pulse Rate 104 H 101 H Respiratory Rate 15 15 Blood Pressure 124/74 Pulse Oximetry 96 96 Oxygen Delivery Method Room Air 03/01/23 19:15 03/01/23 19:30 03/01/23 19:30 Pulse Rate 106 H Respiratory Rate 12 Blood Pressure 122/72 128/76 Pulse Oximetry 96 Oxygen Delivery Method MDM - Chest Pain <Victoria Coombs, DO - Last Filed: 03/02/23 07:27> Lab Data 03/01/23 16:00 03/01/23 16:00 Labs: Lab Results 03/01/23 03/01/23 Range/Units 16:00 18:03 WBC 10.2 (4.5-11.0) X10^3/uL RBC 5.15 (4.5-5.9) X10^6/uL Hgb 15.9 (13.5-17.5) g/dL Hct 45.4 (41-53) % MCV 88.0 (80-100) fL MCH 30.8 (26-34) PG MCHC 35.0 (30-36) % RDW 14.6 (11.6-14.8) % Plt Count 296 (150-400) X10^3/uL Neut % (Auto) 67.5 (50-75) % Lymph % (Auto) 21.4 L (25-40) % [place] % (Auto) 7.7 (3-14) % Eos % (Auto) 2.6 (2-4) % Baso % (Auto) 0.8 (0-2) % Neut # (Auto) 6900 (6408-4103) /uL Lymph # (Auto) 2200 (7909-2203) /uL [place] # (Auto) 800 (0-900) /uL Eos # (Auto) 300 (0-450) /uL Baso # (Auto) 100 (0-100) /uL ESR 10 (0-15) MM/HR PT 11.8 (9.4-12.5) SECONDS INR 1.0 (0.9-1.3) APTT 35 (25.1-36.5) SECONDS D-Dimer 256 (<500) ng/ml Sodium 135 L (137-145) mmol/L Potassium 4.1 (3.4-5.1) mmol/L Chloride 101 (98-107) mmol/L Carbon Dioxide 25 (22-32) mmol/L BUN 19 (9-20) mg/dL Creatinine 0.82 (0.66-1.25) mg/dL Estimated GFR > 60 (>60) mL/min BUN/Creatinine Ratio 23.2 H (6-22) Glucose 172 H (70-100) mg/dL Calcium 9.9 (8.4-10.2) mg/dL Magnesium 1.8 (1.6-2.3) mg/dL Total Bilirubin 0.9 (0.2-1.3) mg/dL AST 30 (17-59) IU/L ALT 44 (<50) IU/L Alkaline Phosphatase 90 (38-126) U/L Total Creatine Kinase 90 (55-170) U/L Troponin I < 0.012 < 0.012 (0.01-0.034) ng/mL C-Reactive Protein 0.9 (<1.0) mg/dL NT-Pro-B Natriuret Pep < 20 (<125) pg/mL Total Protein 7.9 (6.3-8.2) g/dL Albumin 4.5 (3.5-5.0) g/dL Globulin 3.4 (1.7-4.1) g/dL Albumin/Globulin Ratio 1.3 (1.0-2.8) Lipase 450 H (23-300) U/L Point of Care Testing Glucose POC 169 Imaging Data Chest x-ray: Radiologist's Impression: [address] [address] XRay Report Signed Patient: Vishal Purdy MR#: [id number] : 1970 Acct:[id number] Age/Sex: 52 / M Date of Service: 03/01/23 Loc: ED Accession Number: [id number] Procedure: XR chest 1V Ordering Provider: Victoria Coombs D.O. PROCEDURE: XR CHEST 1V INDICATIONS: chest pain TECHNIQUE: One view of the chest was acquired. COMPARISON: [facility], , XR CHEST 1V, 09/25/2019, 14:03. FINDINGS: Surgical changes and devices: None. Lungs and pleura: Lungs are clear. No pleural effusions or pneumothorax. Mediastinum: Mediastinal contours appear normal. Heart size is normal. Bones and chest wall: No suspicious bony lesions. Overlying soft tissues appear unremarkable. IMPRESSION: No acute process. Dictated by: Gerardo Benites M.D. on 03/01/2023 at 16:27 Approved by: Gerardo Benites M.D. on 03/01/2023 at 16:27 ECG Data Attestation: I personally reviewed and interpreted this ECG as follows: Interpretation: Sinus rhythm rate of 100 AL 160 QRS 88 QTC 433. Possible J-point elevation diffusely throughout leads. EKG 2. Sinus tach rate of 101 AL 160 QRS of 90 QTC 438. Patient has mild J-point elevation but appears similar to prior with no dynamic changes is through out questionable AL depression in lateral leads. MDM Narrative Medical decision making narrative: 52-year-old male with chest pain concerning for ischemia patient had did have improvement with nitro. No dynamic EKG changes appreciated. Initial troponin was negative.. Patient was placed on nitro paste. Patient's labs including CBC, CMP, dimer coags did not reflect any other potential source. Glucose was 172 sodium was 135 lipase was very slightly elevated at 450 but was elevated in January of 2020 at 395. Patient had COVID/influenza/RSV which was negative. ESR and CRP were also added on with history of myocarditis and were negative as well. Chest x-ray was negative. Patient's history concerning for possible cardiac cause. Second troponin going to be repeated at the 2 hour cassidy. Patient signed out to Dr. Moses while awaiting repeat troponin. Patient does have multiple cardiac risk factors. 52-year-old man with multiple cardiac risk factors presenting with chest pain that is concerning for ischemia. Has a remote history of myocarditis does not have ischemic EKG changes and troponin is normal x2, chest pain responded to nitroglycerin. Pulmonary embolism was considered, D-dimer is normal. Patient is admitted to the hospitalist service further evaluation. <Edilberto Moses MD - Last Filed: 03/02/23 00:39> Lab Data Lab results narrative: D-dimer is normal, troponins are normal x2 CBC with diff is unremarkable, CMP remarkable for elevated glucose. Labs: Lab Results 03/01/23 03/01/23 Range/Units 16:00 18:03 WBC 10.2 (4.5-11.0) X10^3/uL RBC 5.15 (4.5-5.9) X10^6/uL Hgb 15.9 (13.5-17.5) g/dL Hct 45.4 (41-53) % MCV 88.0 (80-100) fL MCH 30.8 (26-34) PG MCHC 35.0 (30-36) % RDW 14.6 (11.6-14.8) % Plt Count 296 (150-400) X10^3/uL Neut % (Auto) 67.5 (50-75) % Lymph % (Auto) 21.4 L (25-40) % [place] % (Auto) 7.7 (3-14) % Eos % (Auto) 2.6 (2-4) % Baso % (Auto) 0.8 (0-2) % Neut # (Auto) 6900 (4721-5292) /uL Lymph # (Auto) 2200 (1817-2762) /uL [place] # (Auto) 800 (0-900) /uL Eos # (Auto) 300 (0-450) /uL Baso # (Auto) 100 (0-100) /uL ESR 10 (0-15) MM/HR PT 11.8 (9.4-12.5) SECONDS INR 1.0 (0.9-1.3) APTT 35 (25.1-36.5) SECONDS D-Dimer 256 (<500) ng/ml Sodium 135 L (137-145) mmol/L Potassium 4.1 (3.4-5.1) mmol/L Chloride 101 (98-107) mmol/L Carbon Dioxide 25 (22-32) mmol/L BUN 19 (9-20) mg/dL Creatinine 0.82 (0.66-1.25) mg/dL Estimated GFR > 60 (>60) mL/min BUN/Creatinine Ratio 23.2 H (6-22) Glucose 172 H (70-100) mg/dL Calcium 9.9 (8.4-10.2) mg/dL Magnesium 1.8 (1.6-2.3) mg/dL Total Bilirubin 0.9 (0.2-1.3) mg/dL AST 30 (17-59) IU/L ALT 44 (<50) IU/L Alkaline Phosphatase 90 (38-126) U/L Total Creatine Kinase 90 (55-170) U/L Troponin I < 0.012 < 0.012 (0.01-0.034) ng/mL C-Reactive Protein 0.9 (<1.0) mg/dL NT-Pro-B Natriuret Pep < 20 (<125) pg/mL Total Protein 7.9 (6.3-8.2) g/dL Albumin 4.5 (3.5-5.0) g/dL Globulin 3.4 (1.7-4.1) g/dL Albumin/Globulin Ratio 1.3 (1.0-2.8) Lipase 450 H (23-300) U/L Point of Care Testing Glucose POC 169 Imaging Data Chest x-ray: My Impression: No acute disease MDM Narrative Medical decision making narrative: 52-year-old man with multiple cardiac risk factors presenting with chest pain that is concerning for ischemia. Has a remote history of myocarditis does not have ischemic EKG changes and troponin is normal x2, chest pain responded to nitroglycerin. Pulmonary embolism was considered, D-dimer is normal. Patient is admitted to the hospitalist service further evaluation. Discharge Plan Departure Patient Disposition: Admitted as Observation Clinical Impression: Chest pain Qualifiers: Chest pain type: unspecified Qualified Code(s): R07.9 - Chest pain, unspecified Admit Date/Time: 03/01/23 19:34 Admit Provider: Peter Arnold
[2023-03-01] MEDS: ASPIRIN 81 MG CHEW TAB 324 MG PO (16:17)
[2023-03-01] MEDS: SODIUM CHLORIDE 0.9% 1,000 ML 1000 ML IV (16:21)
[2023-03-01] MEDS: NITROGLYCERIN 0.4 MG SL TAB SL ×3 (16:24→16:41)
[2023-03-01 16:28] LABS: Add Manual Diff / Slide Review NO; Basophils Absolute Auto 100 /uL (0-100); Basophils Percent Auto 0.8 % (0-2); Eosinophils Absolute Auto 300 /uL (0-450); Eosinophils Percent Auto 2.6 % (2-4); Hematocrit 45.4 % (41-53); Hemoglobin 15.9 g/dL (13.5-17.5); Lymphocytes Absolute Auto 2200 /uL (1100-4500); Lymphocytes Percent Auto 21.4 % (25-40); Mean Corpuscular Hemoglobin 30.8 PG (26-34); Monocytes Absolute Auto 800 /uL (0-900); Monocytes Percent Auto 7.7 % (3-14); Neutrophils Absolute Auto 6900 /uL (1500-7000); Neutrophils Percent Auto 67.5 % (50-75); Platelet Count 296 X10^3/uL (150-400); Red Blood Cell Count 5.15 X10^6/uL (4.5-5.9); Red Cell Distribution Width 14.6 % (11.6-14.8); White Blood Cell Count 10.2 X10^3/uL (4.5-11.0)
[2023-03-01 16:36] LABS: Prothrombin Time 11.8 SECONDS (9.4-12.5)
--- NOTE | 2023-03-01 16:36 | PC.NURSE ---
patient reports feeling less pain after the first nitro tab. He went from a 08/29 - 05/01. provider notified. Another round of nitro was ordered and administered.
[2023-03-01 16:39] LABS: PTT Partial Thromboplastin Tim 35 SECONDS (25.1-36.5)
[2023-03-01 16:44] LABS: Alanine Aminotransferase 44 IU/L (<50); Albumin 4.5 g/dL (3.5-5.0); Albumin Globulin Ratio 1.3 (1.0-2.8); Alkaline Phosphatase 90 U/L (38-126); Aspartate Aminotransferase 30 IU/L (17-59); BUN Creatinine Ratio 23.2 (6-22); Bilirubin Total 0.9 mg/dL (0.2-1.3); Blood Urea Nitrogen 19 mg/dL (9-20); Calcium 9.9 mg/dL (8.4-10.2); Carbon Dioxide 25 mmol/L (22-32); Chloride 101 mmol/L (98-107); Creatine Kinase 90 U/L (55-170); Estimated Glomerular Filt Rate > 60 mL/min (>60); Globulin 3.4 g/dL (1.7-4.1); Glucose 172 mg/dL (70-100); HEMOLYSIS 17 (0-50); Lipase 450 U/L (23-300); Magnesium 1.8 mg/dL (1.6-2.3); Potassium 4.1 mmol/L (3.4-5.1); Sodium 135 mmol/L (137-145); Total Protein 7.9 g/dL (6.3-8.2)
[2023-03-01 16:47] LABS: C-Reactive Protein Quant 0.9 mg/dL (<1.0)
[2023-03-01 16:51] LABS: NT-proBNP (BNP-Adult 18+) < 20 pg/mL (<125)
[2023-03-01 16:52] LABS: D Dimer 256 ng/ml (<500)
[2023-03-01 16:54] LABS: Troponin I < 0.012 ng/mL (0.01-0.034)
[2023-03-01] MEDS: NITROGLYCERIN OINT 1 INCH/GM OINT...G. TOP (17:08)
[2023-03-01 17:17] LABS: Erythrocyte Sedimentation Rate 10 MM/HR (0-15)
[2023-03-01 18:38] LABS: Troponin I < 0.012 ng/mL (0.01-0.034)
--- NOTE | 2023-03-01 20:01 | PC.NURSE ---
Patient states that his pain is better managed with nitro paste and nitro tabs. He is alert and has a request to help reduce his symptoms of anxiety.
[2023-03-01] MEDS: clonazePAM 0.5 MG TABLET 1 MG PO (20:53)
[2023-03-01 20:55] LABS: Cholesterol 129 mg/dL (140-199); HDL Cholesterol 24 mg/dL (40-60)
[2023-03-01] MEDS: METOPROLOL TARTRATE 5 MG/5 ML INJ IV (20:57)
[2023-03-01 21:07] LABS: Triglycerides 649 mg/dL (35-150)
[2023-03-01 21:08] LABS: Troponin I < 0.012 ng/mL (0.01-0.034)
[2023-03-01 21:27] LABS: Thyroid Stimulating Hormone 3.25 uIU/mL (0.47-4.68)
[2023-03-01 22:08] LABS: Influenza A - CEPHEID Flu A NEGATIVE (NEGATIVE); Influenza B - CEPHEID Flu B NEGATIVE (NEGATIVE); Respiratory Syncytial Virus Negative (Negative)
[2023-03-01 22:10] LABS: COVID-19 CEPHEID 4-PLEX PCR Negative (Negative)
[2023-03-01] MEDS: INSULIN GLARGINE 100 UNIT/ML 3ML PEN 60 UNIT SUBCUT (22:23)
[2023-03-01] MEDS: ATORVASTATIN 20 MG TABLET 40 MG PO (22:30)
[2023-03-01] MEDS: METFORMIN HCL 500 MG TABLET 1000 MG PO (22:31)
[2023-03-01] MEDS: BUSPIRONE 5 MG TABLET 10 MG PO (22:31)
[2023-03-02] VITALS (64 sets, daily range): BP systolic 100–143; BP diastolic 59–91; PULSE 76–96; RESP 6–23; O2SAT 91–99
--- NOTE | 2023-03-02 01:30 | PC.NURSE ---
SOLUTION DESIGNER NOTE: PT. had a marble sized, dark red, BM and was reported ignacio FERRARA and RN.
--- NOTE | 2023-03-02 03:59 | PM.HP.1 ---
History of Present Illness History of Present Illness Chief complaint: tIGHT CHEST SOB. CHEST PAIN Narrative: 52 years old male with history of hypertension, hyperlipidemia, diabetes mellitus type 2, depression, anxiety, history of pancreatitis presents to the ER with chest pain started at 2 AM this morning. The pain was described as substernal, constant, waning and waxing, moderate, radiating to his left shoulder, worse when lying flat, associated with shortness of breath, lightheadedness and not relieved by anything, denies fever, cough, palpitations, nausea, vomiting, abdominal pain, diarrhea or dysuria. Patient has a history of pancreatitis in the past with pain in the back but this pain is different. History of negative heart catheterization in the past but developed pseudoaneurysm. Compliant to his home medications. Does not follow with cardiology after hospitalization for myocarditis in 2002. Initial laboratory shows WBC 10.2, H&H 15.9/45.4 platelets 296, INR 1, D-dimer 256, potassium 4, creatinine 0.82, blood sugar 172, magnesium 1.8, LFTs normal, lipase 450, troponins x 2 negative, EKG normal sinus rhythm, no ischemic changes. Respiratory viral panel negative. Abdominal CT scan on January 2023 was unremarkable. In the ER he was given aspirin 324 mg p.o., nitroglycerin 0.4 mg sublingual and NS bolus. [facility] Medical History Cellulitis of great toe, right Acute pancreatitis Depression Diabetes Dyslipidemia Hypertension Surgical History S/P cardiac cath Hx of cholecystectomy Family History Father Acute cholecystitis Mother Acute cholecystitis Diverticulitis Cardiac arrhythmia Brother Acute cholecystitis Social History household members: family Smoking Status: Never smoker alcohol intake: never Meds Home Medications and Allergies Home Medications Medication Instructions Recorded Confirmed Type loratadine 10 mg tablet (Claritin) 10 mg PO DAILY 07/27/19 01/11/23 History metformin 1,000 mg tablet 1,000 mg PO BID 07/27/19 01/11/23 History atorvastatin 40 mg tablet 40 mg PO BEDTIME 09/25/19 01/11/23 History lisinopril 10 mg tablet 10 mg PO DAILY 09/25/19 01/11/23 History albuterol sulfate 90 mcg/actuation inhalation 01/11/23 01/11/23 History aerosol inhaler buspirone 5 mg tablet 10 mg PO BID 01/11/23 01/11/23 History clonazepam 1 mg tablet mg PO 01/11/23 01/11/23 History dapagliflozin propanediol 10 mg 10 mg PO DAILY 01/11/23 01/11/23 History tablet (Farxiga) duloxetine 40 mg capsule,delayed 40 mg PO DAILY 01/11/23 01/11/23 History release insulin glargine 100 unit/mL (3 unit SUBCUT 01/11/23 01/11/23 History mL) subcutaneous pen (Lantus Solostar U-100 Insulin) Allergies Allergy/AdvReac Type Severity Reaction Status Date / Time No Known Drug Allergies Allergy Verified 01/11/23 16:50 Review of Systems Review of Systems ROS: Yes All systems reviewed with the patient and are negative except as otherwise documented Constitutional Constitutional: Reports as per HPI and Reports system reviewed and no additional complaints, except as documented Eyes Eyes: Reports as per HPI and Reports system reviewed and no additional complaints, except as documented ENT Ears, Nose, Mouth, and Throat: Yes as per HPI and Yes system reviewed and no additional complaints, except as documented Cardiovascular Cardiovascular: Reports system reviewed and no additional complaints, except as documented Respiratory Respiratory: Reports system reviewed and no additional complaints, except as documented Gastrointestinal Gastrointestinal: Reports system reviewed and no additional complaints, except as documented Genitourinary Genitourinary: Reports system reviewed and no additional complaints, except as documented Musculoskeletal Musculoskeletal: Reports system reviewed and no additional complaints, except as documented, Reports abnormal gait and Reports numbness Neurologic Neurologic: Reports system reviewed and no additional complaints, except as documented, Reports abnormal gait, Reports confusion and Reports numbness Psychiatric Psychiatric: Reports system reviewed and no additional complaints, except as documented and Reports confusion Exam Vital Signs (past 8 hours): - 03/01/23 20:00 03/01/23 20:15 03/01/23 20:30 Pulse Rate 101 H 109 H 105 H Respiratory Rate 15 15 19 Blood Pressure Pulse Oximetry 97 97 96 03/01/23 20:45 03/01/23 20:53 03/01/23 20:53 Pulse Rate 106 H 105 H Respiratory Rate 15 15 Blood Pressure 131/67 Pulse Oximetry 95 97 03/01/23 21:00 03/01/23 21:00 03/01/23 21:05 Pulse Rate 103 H Respiratory Rate 11 L Blood Pressure 145/78 H 129/72 Pulse Oximetry 96 03/01/23 21:15 03/01/23 21:15 03/01/23 21:30 Pulse Rate 92 H 94 H Respiratory Rate 14 11 L Blood Pressure 129/72 Pulse Oximetry 97 95 03/01/23 21:30 03/01/23 21:45 03/01/23 21:45 Pulse Rate 92 H Respiratory Rate 14 Blood Pressure 112/59 L 126/74 Pulse Oximetry 97 03/01/23 22:00 03/01/23 22:00 03/01/23 22:15 Pulse Rate 93 H Respiratory Rate 15 Blood Pressure 111/59 L 107/59 L Pulse Oximetry 95 03/01/23 22:15 03/01/23 22:30 03/01/23 22:45 Pulse Rate 92 H 97 H 96 H Respiratory Rate 16 24 18 Blood Pressure Pulse Oximetry 94 95 97 03/01/23 22:45 03/01/23 23:00 03/01/23 23:00 Pulse Rate 94 H Respiratory Rate 16 Blood Pressure 124/75 117/70 Pulse Oximetry 97 03/01/23 23:15 03/01/23 23:15 03/01/23 23:30 Pulse Rate 94 H 94 H Respiratory Rate 16 21 Blood Pressure 97/53 L Pulse Oximetry 95 93 03/01/23 23:30 03/01/23 23:45 03/01/23 23:45 Pulse Rate 91 H Respiratory Rate 17 Blood Pressure 113/56 L 107/62 Pulse Oximetry 93 03/01/23 23:45 03/01/23 23:53 03/01/23 23:53 Pulse Rate 91 H Respiratory Rate 12 Blood Pressure 107/62 112/61 Pulse Oximetry 96 03/02/23 00:00 03/02/23 00:00 03/02/23 00:01 Pulse Rate 88 89 Respiratory Rate 19 16 Blood Pressure 111/59 L Pulse Oximetry 95 97 03/02/23 00:01 03/02/23 00:15 03/02/23 00:30 Pulse Rate 90 93 H Respiratory Rate 17 18 Blood Pressure 112/63 Pulse Oximetry 95 94 03/02/23 00:45 03/02/23 01:00 03/02/23 01:00 Pulse Rate 89 89 Respiratory Rate 15 15 Blood Pressure 117/67 Pulse Oximetry 95 94 03/02/23 01:15 03/02/23 01:30 03/02/23 01:45 Pulse Rate 88 85 84 Respiratory Rate 14 14 15 Blood Pressure Pulse Oximetry 95 94 94 Oxygen Delivery Method Room Air Const General: cooperative, comfortable and well developed Orientation: alert and oriented x3 HENMD Head: normal to inspection, normocephalic and atraumatic Face and sinus: normal facial exam Mouth: oral mucosae normal and moist mucous membranes Throat: posterior oropharynx normal Eyes General: appearance normal, both eyes and all related structures Pupils: PERRL EOM: EOM intact bilaterally Neck Neck: normal visual inspection and full ROM Chest Chest: normal inspection of the chest Resp Effort & Inspection: normal respiratory effort and able to speak in complete sentences Auscultation: clear to auscultation bilaterally Cardio Palpation: normal PMI Rate: regular rate Rhythm: regular rhythm Heart Sounds: S1 normal and S2 normal GI Inspection: normal to inspection Palpation: soft and no hepatosplenomegaly Auscultation: normal bowel sounds Skin General: no rashes or lesions noted Lesions: no lesions Rashes: no rashes Trauma: no lacerations or abrasions Neuro General: patient alert, patient awake, patient oriented x3 and no focal motor deficits Cranial Nerves: CN's II-XI intact bilaterally Cognition: normal cognition Speech: speech normal Gait: normal gait Motor: muscle tone normal throughout Sensory Exam: no sensory deficits noted Extrem General: full ROM and no calf tenderness Psych Appearance: grossly normal Mental Status: mental status grossly normal Speech and Movement: speech and movement normal Objective Labs 03/01/23 16:00 03/01/23 16:00 Labs: Laboratory Results - last 24 hr 03/01/23 03/01/23 03/01/23 16:00 18:03 20:34 WBC 10.2 RBC 5.15 Hgb 15.9 Hct 45.4 MCV 88.0 MCH 30.8 MCHC 35.0 RDW 14.6 Plt Count 296 Neut % (Auto) 67.5 Lymph % (Auto) 21.4 L [place] % (Auto) 7.7 Eos % (Auto) 2.6 Baso % (Auto) 0.8 Neut # (Auto) 6900 Lymph # (Auto) 2200 [place] # (Auto) 800 Eos # (Auto) 300 Baso # (Auto) 100 ESR 10 PT 11.8 INR 1.0 APTT 35 D-Dimer 256 Sodium 135 L Potassium 4.1 Chloride 101 Carbon Dioxide 25 BUN 19 Creatinine 0.82 Estimated GFR > 60 BUN/Creatinine Ratio 23.2 H Glucose 172 H Calcium 9.9 Magnesium 1.8 Total Bilirubin 0.9 AST 30 ALT 44 Alkaline Phosphatase 90 Total Creatine Kinase 90 Troponin I < 0.012 < 0.012 < 0.012 C-Reactive Protein 0.9 NT-Pro-B Natriuret Pep < 20 Total Protein 7.9 Albumin 4.5 Globulin 3.4 Albumin/Globulin Ratio 1.3 Triglycerides 649 H Cholesterol 129 L LDL Cholesterol, Calc TNP HDL Cholesterol 24 L Lipase 450 H TSH 3.25 SARS-CoV-2 (PCR) Influenza A (RT-PCR) Influenza B (RT-PCR) RSV (PCR) 03/01/23 21:03 WBC RBC Hgb Hct MCV MCH MCHC RDW Plt Count Neut % (Auto) Lymph % (Auto) [place] % (Auto) Eos % (Auto) Baso % (Auto) Neut # (Auto) Lymph # (Auto) [place] # (Auto) Eos # (Auto) Baso # (Auto) ESR PT INR APTT D-Dimer Sodium Potassium Chloride Carbon Dioxide BUN Creatinine Estimated GFR BUN/Creatinine Ratio Glucose Calcium Magnesium Total Bilirubin AST ALT Alkaline Phosphatase Total Creatine Kinase Troponin I C-Reactive Protein NT-Pro-B Natriuret Pep Total Protein Albumin Globulin Albumin/Globulin Ratio Triglycerides Cholesterol LDL Cholesterol, Calc HDL Cholesterol Lipase TSH SARS-CoV-2 (PCR) Negative Influenza A (RT-PCR) Flu a negative Influenza B (RT-PCR) Flu b negative RSV (PCR) Negative Assessment & Plan Assessment and plan (1) Chest pain: Qualifiers: Chest pain type: unspecified Qualified Code(s): R07.9 - Chest pain, unspecified Status: Acute Plan: Admit for observation Telemetry, serial cardiac enzymes Aspirin, nitroglycerin and morphine as needed for chest pain Echo Treadmill stress test in the morning Check lipids and TSH (2) Diabetes: Status: Acute Plan: Restart long-acting insulin and metformin ADA diet Monitor blood sugar ACHS Check A1c (3) Dyslipidemia: Status: Acute Plan: Restart statins (4) Hypertension: Status: Acute Plan: Restart lisinopril (5) Depression: Status: Acute Plan: Restart buspirone and clonazepam Time Spent With Patient Time with patient: 50 to 69 minutes with 50% spent counseling/coordinating care Quality VTE Deep Vein Thrombosis/Pulmonary Embolism Present on Admission: No MIPS - Admit I confirm the patient?s Advance Care Plan is present, Code status is documented, Surrogate decision maker is in patient?s record [If Yes, STOP here]: Yes MIPS - Meds 'Current medications' to include all prescriptions, [id number] products, herbals, cannabis/cannabidiol products, and vitamin/mineral/dietary (nutritional) supplements. I have utilized all available resources to obtain, update, or review the patient?s current medications. [If Yes, STOP here]: Yes
[2023-03-02 04:41] LABS: Troponin I < 0.012 ng/mL (0.01-0.034)
--- NOTE | 2023-03-02 07:24 | DI.NM.S_ITS ---
PROCEDURE: NM MING PERF SPECT REST & STR Rest and exercise myocardial perfusion SPECT with gated imaging and ejection fraction RADIOPHARMACEUTICAL: 10.0 mCi Tc-99m sestamibi IV at rest and 27.5 mCi Tc-99m sestamibi IV at peak exercise. A [id number] was performed. INDICATIONS: Chest pain TECHNIQUE: Radiopharmaceutical was injected at peak stress test, and also at rest. SPECT images were obtained. SPECT myocardial perfusion images were displayed in short axis, horizontal long axis, and vertical long axis views. Gated images were reviewed using [employer] software. COMPARISON: None. CARDIAC STRESS: A standard [place] treadmill exercise tolerance test was performed by the patient under the supervision of an attending staff. The patient exercised for 6 minutes and 01 seconds; 7.0 METS; functional aerobic impairment (URBAN) is +39% %. Hemodynamic data: There is a blunted heart rate response to exercise stress. Blood pressure response was normal however. Patient achieved 81% of maximum predicted heart rate at peak exercise. Symptoms: Patient complained of chest pain only with inspiration during exercise. He also complained of leg heaviness. EKG: No diagnostic EKG changes of ischemia; no ectopy. FINDINGS: Raw data: There is good myocardial labeling by radiotracer. No significant motion artifacts. Pmlx-nx-hcojs ratio is 0.34 (normal is less than 0.38 for sestamibi tracer, and less than 0.50 for thallium tracer). Left ventricle function: Gated images demonstrate normal left ventricle wall thickening. No segmental wall motion abnormality. No transient ischemic dilation; TID is 0.86 (normal less than 1.3). The left ventricle resting end-diastolic volume is 89 mL. Left ventricle stress ejection fraction is 64%; normal values are above 45%. Myocardial perfusion: There is a medium size, mild to moderate intensity fixed mid anteroseptal wall defect that resolves in prone imaging. No reversible perfusion defects. IMPRESSION: Likely low risk study. No evidence of exercise-induced ischemia on ECG or SPECT imaging at heart rate just under peak predicted. Normal LV size and function. Blunted heart rate response. Normal blood pressure response. Reduced exercise capacity. Dictated by: Jodi Martinez D.O. on 03/02/2023 at 15:23 Approved by: Jodi Martinez D.O. on 03/02/2023 at 15:31
[2023-03-02] MEDS: INSULIN LISPRO 100 UNIT/ML 3ML VIAL SUBCUT ×2 (08:40→12:57)
--- NOTE | 2023-03-02 09:15 | PC.NURSE ---
Will hold am metformin dose and administer once pt returns from nuc med stress test [id number]. Pt NPO since 1600 yesterday. Healthy heart diet ordered for lunchtime meal. Per hospitalist.
[2023-03-02] MEDS: DULOXETINE 20 MG CAPSULE 40 MG PO (09:30)
[2023-03-02] MEDS: BUSPIRONE 5 MG TABLET 10 MG PO (09:45)
[2023-03-02] MEDS: ASPIRIN EC 81 MG TABLET PO (10:18)
--- NOTE | 2023-03-02 12:38 | PC.NURSE ---
Pt in Nuclear medicine @ stress test between [id number]. Just returned, escorted by [place], ambulates with steady gait, denies lightheadedness. AOx4. Will order diet marsha, per hospitalist.
[2023-03-02] MEDS: METFORMIN HCL 500 MG TABLET 1000 MG PO (12:46)
--- NOTE | 2023-03-02 16:01 | P.DS_ITS ---
History of Present Illness History of Present Illness Chief complaint: tIGHT CHEST SOB. CHEST PAIN Narrative: 52 years old male with history of hypertension, hyperlipidemia, diabetes mellitus type 2, depression, anxiety, history of pancreatitis presents to the ER with chest pain started at 2 AM this morning. The pain was described as substernal, constant, waning and waxing, moderate, radiating to his left shoulder, worse when lying flat, associated with shortness of breath, lightheadedness and not relieved by anything, denies fever, cough, palpitations, nausea, vomiting, abdominal pain, diarrhea or dysuria. Patient has a history of pancreatitis in the past with pain in the back but this pain is different. History of negative heart catheterization in the past but developed pseudoaneurysm. Compliant to his home medications. Does not follow with cardiology after hospitalization for myocarditis in 2002. Initial laboratory shows WBC 10.2, H&H 15.9/45.4 platelets 296, INR 1, D-dimer 256, potassium 4, creatinine 0.82, blood sugar 172, magnesium 1.8, LFTs normal, lipase 450, troponins x 2 negative, EKG normal sinus rhythm, no ischemic changes. Respiratory viral panel negative. Abdominal CT scan on January 2023 was unremarkable. In the ER he was given aspirin 324 mg p.o., nitroglycerin 0.4 mg sublingual and NS bolus. Discharge Providers Provider Date of admission: 03/01/23 19:34 Discharge Date: 03/02/23 Primary care physician: Doctor Babita MD Discharge provider: Fred Reeves DO Summary Hospital Course Discharge Diagnosis: (1) Chest pain: Qualifiers: Chest pain type: unspecified Qualified Code(s): R07.9 - Chest pain, unspecified Status: Acute Plan: (2) Diabetes: Status: Acute Plan: Restart long-acting insulin and metformin ADA diet Monitor blood sugar ACHS A1c pending, previously 11% in 2020 (3) Dyslipidemia: Status: Acute Plan: Restart statins TG 649 so LDL not reportable, defer to PCP (4) Hypertension: Status: Acute Plan: Restart lisinopril (5) Depression: Status: Acute Plan: Restart buspirone and clonazepam Hospital Course: Admitted for chest pain. Echo, NM stress test, EKG and trops all normal. Dimer 256 so just mildly above normal but PE unlikely. Lipids elevated and PCP should assess. Already on statin which was continued. Exam Vital Signs (past 8 hours): - 03/02/23 08:15 03/02/23 08:30 03/02/23 08:45 Pulse Rate 78 85 85 Respiratory Rate 13 15 23 Blood Pressure Pulse Oximetry 93 96 95 Oxygen Delivery Method 03/02/23 08:51 03/02/23 08:51 03/02/23 09:00 Pulse Rate 83 Respiratory Rate 15 Blood Pressure 134/84 118/81 Pulse Oximetry 98 Oxygen Delivery Method 03/02/23 09:00 03/02/23 09:07 03/02/23 09:38 Pulse Rate 81 83 Respiratory Rate 15 15 Blood Pressure 125/79 Pulse Oximetry 96 95 Oxygen Delivery Method 03/02/23 09:40 03/02/23 09:45 03/02/23 10:00 Pulse Rate 86 88 80 Respiratory Rate Blood Pressure Pulse Oximetry 95 97 94 Oxygen Delivery Method 03/02/23 10:00 03/02/23 10:15 03/02/23 10:30 Pulse Rate 83 81 Respiratory Rate 12 Blood Pressure 117/80 Pulse Oximetry 93 95 Oxygen Delivery Method 03/02/23 10:30 03/02/23 10:45 03/02/23 11:00 Pulse Rate 83 85 Respiratory Rate 13 20 Blood Pressure 125/82 Pulse Oximetry 95 96 Oxygen Delivery Method 03/02/23 11:00 03/02/23 13:01 03/02/23 13:02 Pulse Rate 96 H 94 H Respiratory Rate Blood Pressure 140/91 H Pulse Oximetry 91 95 Oxygen Delivery Method 03/02/23 13:02 03/02/23 13:02 03/02/23 13:06 Pulse Rate 94 H 91 H Respiratory Rate Blood Pressure 130/81 130/81 Pulse Oximetry 95 96 Oxygen Delivery Method Room Air 03/02/23 13:48 03/02/23 13:50 03/02/23 13:50 Pulse Rate 94 H 89 Respiratory Rate 17 Blood Pressure 140/74 Pulse Oximetry 97 Oxygen Delivery Method 03/02/23 14:00 03/02/23 14:00 03/02/23 14:15 Pulse Rate 88 88 Respiratory Rate 15 16 Blood Pressure 119/74 Pulse Oximetry 97 96 Oxygen Delivery Method 03/02/23 14:30 03/02/23 14:30 03/02/23 14:45 Pulse Rate 85 85 Respiratory Rate 14 15 Blood Pressure 136/80 Pulse Oximetry 92 94 Oxygen Delivery Method 03/02/23 15:00 03/02/23 15:00 03/02/23 15:15 Pulse Rate 92 H 89 Respiratory Rate 16 17 Blood Pressure 143/85 H Pulse Oximetry 96 96 Oxygen Delivery Method 03/02/23 15:30 03/02/23 15:30 Pulse Rate 84 Respiratory Rate 14 Blood Pressure 130/78 Pulse Oximetry 96 Oxygen Delivery Method Oxygen Delivery Method Room Air Const General: cooperative, comfortable and well developed Orientation: alert and oriented x3 HENMT Head: normal to inspection, normocephalic and atraumatic Face and sinus: normal facial exam Mouth: oral mucosae normal and moist mucous membranes Throat: posterior oropharynx normal Eyes General: appearance normal, both eyes and all related structures Pupils: PERRL EOM: EOM intact bilaterally Neck Neck: normal visual inspection and full ROM Chest Chest: normal inspection of the chest Resp Effort & Inspection: normal respiratory effort and able to speak in complete sentences Auscultation: clear to auscultation bilaterally Cardio Palpation: normal PMI Rate: regular rate Rhythm: regular rhythm Heart Sounds: S1 normal and S2 normal GI Inspection: normal to inspection Palpation: soft and no hepatosplenomegaly Auscultation: normal bowel sounds Skin General: no rashes or lesions noted Lesions: no lesions Rashes: no rashes Trauma: no lacerations or abrasions Neuro General: patient alert, patient awake, patient oriented x3 and no focal motor deficits Cranial Nerves: CN's II-XI intact bilaterally Cognition: normal cognition Speech: speech normal Gait: normal gait Motor: muscle tone normal throughout Sensory Exam: no sensory deficits noted Extrem General: full ROM and no calf tenderness Psych Appearance: grossly normal Mental Status: mental status grossly normal Speech and Movement: speech and movement normal Objective Labs 03/01/23 16:00 03/01/23 16:00 Labs: Laboratory Results - last 24 hr 03/01/23 03/01/23 03/01/23 16:00 18:03 20:34 WBC 10.2 RBC 5.15 Hgb 15.9 Hct 45.4 MCV 88.0 MCH 30.8 MCHC 35.0 RDW 14.6 Plt Count 296 Neut % (Auto) 67.5 Lymph % (Auto) 21.4 L [place] % (Auto) 7.7 Eos % (Auto) 2.6 Baso % (Auto) 0.8 Neut # (Auto) 6900 Lymph # (Auto) 2200 [place] # (Auto) 800 Eos # (Auto) 300 Baso # (Auto) 100 ESR 10 PT 11.8 INR 1.0 APTT 35 D-Dimer 256 Sodium 135 L Potassium 4.1 Chloride 101 Carbon Dioxide 25 BUN 19 Creatinine 0.82 Estimated GFR > 60 BUN/Creatinine Ratio 23.2 H Glucose 172 H Calcium 9.9 Magnesium 1.8 Total Bilirubin 0.9 AST 30 ALT 44 Alkaline Phosphatase 90 Total Creatine Kinase 90 Troponin I < 0.012 < 0.012 < 0.012 C-Reactive Protein 0.9 NT-Pro-B Natriuret Pep < 20 Total Protein 7.9 Albumin 4.5 Globulin 3.4 Albumin/Globulin Ratio 1.3 Triglycerides 649 H Cholesterol 129 L LDL Cholesterol, Calc TNP HDL Cholesterol 24 L Lipase 450 H TSH 3.25 SARS-CoV-2 (PCR) Influenza A (RT-PCR) Influenza B (RT-PCR) RSV (PCR) 03/01/23 03/02/23 21:03 04:00 WBC RBC Hgb Hct MCV MCH MCHC RDW Plt Count Neut % (Auto) Lymph % (Auto) [place] % (Auto) Eos % (Auto) Baso % (Auto) Neut # (Auto) Lymph # (Auto) [place] # (Auto) Eos # (Auto) Baso # (Auto) ESR PT INR APTT D-Dimer Sodium Potassium Chloride Carbon Dioxide BUN Creatinine Estimated GFR BUN/Creatinine Ratio Glucose Calcium Magnesium Total Bilirubin AST ALT Alkaline Phosphatase Total Creatine Kinase Troponin I < 0.012 C-Reactive Protein NT-Pro-B Natriuret Pep Total Protein Albumin Globulin Albumin/Globulin Ratio Triglycerides Cholesterol LDL Cholesterol, Calc HDL Cholesterol Lipase TSH SARS-CoV-2 (PCR) Negative Influenza A (RT-PCR) Flu a negative Influenza B (RT-PCR) Flu b negative RSV (PCR) Negative [facility] History Cellulitis of great toe, right Acute pancreatitis Depression Diabetes Dyslipidemia Hypertension Surgical History S/P cardiac cath Hx of cholecystectomy Family History Father Acute cholecystitis Mother Acute cholecystitis Diverticulitis Cardiac arrhythmia Brother Acute cholecystitis Social History household members: family Smoking Status: Never smoker alcohol intake: never Discharge Plan Discharge Plan Patient Disposition: Home Provider Discharge Comment: You were admitted for chest pain. All of your heart workup was reassuring. You likely don't have a PE because you'd be more short of breath. Discharge orders & Medications Prescriptions: Continued insulin glargine [Lantus Solostar U-100 Insulin] 100 unit/mL (3 mL) insulin pen SUBCUT Patient Comments: [NO ORIGINAL SIG] duloxetine 40 mg capsule,delayed release(DR/EC) 40 mg PO DAILY buspirone 5 mg tablet 10 mg PO BID Farxiga 10 mg tablet 10 mg PO DAILY albuterol sulfate 90 mcg/actuation HFA aerosol inhaler inhalation clonazepam 1 mg tablet PO metformin 1,000 mg Tablet 1,000 mg PO BID loratadine [Claritin] 10 mg Tablet 10 mg PO DAILY atorvastatin 40 mg tablet 40 mg PO BEDTIME lisinopril 10 mg Tablet 10 mg PO DAILY Follow up/Referrals: Doctor Babita, MD [Primary Care Provider] - Visit Report/Discharge Packet Stand Alone Forms: Patient Portal/API, Stroke Signs & Symptoms Discharge Data Primary Care Provider: Doctor Babita Attending Provider: Peter Arnold Admit Date/Time: 03/01/23 19:34 Quality VTE Deep Vein Thrombosis/Pulmonary Embolism Present on Admission: No
[2023-03-02 16:23] LABS: Hemoglobin A1C% w Est Avg Glu 8.3 % (4.0-6.0)
== END 2023-03-02 16:41 | disposition home or self-care (01) ==
LOC: ED 19:29 → AC 19:35
PROVIDERS: Emergency Medicine; Student in an Organized Health Care Education/Training Program; Admitting Provider Internal Medicine; Emergency Provider Emergency Medicine; Referring Provider Emergency Medicine; Visit Provider Internal Medicine
DX: R07.9 Chest pain, unspecified (principal); R06.02 Shortness of breath; E11.9 Type 2 diabetes mellitus without complications; E78.5 Hyperlipidemia, unspecified; I10 Essential (primary) hypertension; F32.9 Major depressive disorder, single episode, unspecified; Z11.52 Encounter for screening for COVID-19; Z79.4 Long term (current) use of insulin; Z79.84 Long term (current) use of oral hypoglycemic drugs
CPT/HCPCS: 0241U; 36415; 71045; 78452; 80053; 80061; 82550; 82962; 83036; 83690; 83735; 83880; 84443; 84484; 85025; 85379; 85610; 85651; 85730; 86140; 93005; 93010; 93017; 93306; 96372; 96374; 99284; G0378; A9502; J1815

== ENCOUNTER 2024-03-18 17:13 | Emergency (ER) | payer OTHER, SELFPAY ==
[2023-03-01 21:05] VITALS: BMI 34.8
[2024-03-18] VITALS (9 sets, daily range): BP systolic 131–141; BP diastolic 68–75; PULSE 121–133; RESP 19–37; TEMP 37.7–38.8; O2SAT 90–94; BMI 38.4
--- NOTE | 2024-03-18 17:27 | EKG_ITS ---
[address] [address] Test Date: 2024-03-18 Pat Name: Vishal Purdy Department: Room: Gender: Male Office Services Representative: MARIELLE LOPEZ : 1970 Requested By: Order Number: [id number] Reading MD: Toan Blair Measurements Intervals [place] Rate: 135 P: 70 [place]: 162 QRS: 12 QRSD: 70 T: 58 QT: 264 QTc: 396 Interpretive Statements Sinus tachycardia Low voltage QRS Electronically Signed On 03-23-2024 9:34:15 PST by Toan Blair
--- NOTE | 2024-03-18 17:46 | DI.RAD.S_ITS ---
PROCEDURE: XR CHEST 1V INDICATIONS: Shortness of breath TECHNIQUE: One view of the chest was acquired. COMPARISON: [facility], [place], XR CHEST 1V, 03/01/2023, 16:05. [facility], CR, XR CHEST 1V, 09/25/2019, 14:03. FINDINGS: Surgical changes and devices: None. Lungs and pleura: Low lung volumes. No dense consolidation or pleural effusions. Mediastinum: Borderline cardiomegaly Bones and chest wall: Unremarkable IMPRESSION: Limited single view radiograph with low lung volumes. No acute abnormality. Borderline cardiomegaly. Dictated by: Noah Blake M.D. on 03/18/2024 at 17:16 Approved by: Noah Blake M.D. on 03/18/2024 at 17:16
[2024-03-18 18:15] LABS: Add Manual Diff / Slide Review NO; Basophils Absolute Auto 100 /uL (0-100); Eosinophils Absolute Auto 100 /uL (0-450); Eosinophils Percent Auto 0.7 % (2-4); Hematocrit 44.2 % (41-53); Hemoglobin 15.3 g/dL (13.5-17.5); Lymphocytes Absolute Auto 400 /uL (1100-4500); Lymphocytes Percent Auto 5.4 % (25-40); Mean Corpuscular HGB Conc 34.6 % (30-36); Mean Corpuscular Hemoglobin 31.9 PG (26-34); Mean Corpuscular Volume 92.1 fL (80-100); Monocytes Absolute Auto 500 /uL (0-900); Monocytes Percent Auto 7.4 % (3-14); Neutrophils Absolute Auto 6300 /uL (1500-7000); Neutrophils Percent Auto 85.5 % (50-75); Platelet Count 233 X10^3/uL (150-400); Red Cell Distribution Width 15.3 % (11.6-14.8); White Blood Cell Count 7.3 X10^3/uL (4.5-11.0)
[2024-03-18 18:17] LABS: Influenza A - CEPHEID Flu A POSITIVE (NEGATIVE); Influenza B - CEPHEID Flu B NEGATIVE (NEGATIVE); Respiratory Syncytial Virus Negative (Negative)
[2024-03-18] MEDS: SODIUM CHLORIDE 0.9% 1,000 ML 1000 ML IV (18:17)
[2024-03-18 18:18] LABS: COVID-19 CEPHEID 4-PLEX PCR Negative (Negative)
[2024-03-18 18:23] LABS: INR 1.1 (0.9-1.3); Prothrombin Time 12.4 SECONDS (9.4-12.5)
[2024-03-18 18:27] LABS: Alanine Aminotransferase 57 IU/L (<50); Albumin 4.3 g/dL (3.5-5.0); Albumin Globulin Ratio 1.3 (1.0-2.8); Alkaline Phosphatase 92 U/L (38-126); Aspartate Aminotransferase 49 IU/L (17-59); Bilirubin Total 0.9 mg/dL (0.2-1.3); Blood Urea Nitrogen 16 mg/dL (9-20); Calcium 9.4 mg/dL (8.4-10.2); Carbon Dioxide 23 mmol/L (22-32); Chloride 100 mmol/L (98-107); Estimated Glomerular Filt Rate > 60 mL/min (>60); Globulin 3.2 g/dL (1.7-4.1); Glucose 228 mg/dL (70-100); HEMOLYSIS < 15 (0-50); Potassium 4.4 mmol/L (3.4-5.1); Sodium 132 mmol/L (137-145); Total Protein 7.5 g/dL (6.3-8.2)
[2024-03-18 18:28] LABS: Lactate (Lactic Acid) 1.3 mmol/L (0.7-2.1)
[2024-03-18 18:39] LABS: NT-proBNP (BNP-Adult 18+) 446 pg/mL (<125); Troponin I < 0.012 ng/mL (0.01-0.034)
--- NOTE | 2024-03-18 18:54 | ED_ITS ---
HPI - General Adult General Chief complaint: Fever Stated complaint: sent by [facility], abn labs, racing heart Time Seen by Provider: 03/18/24 17:58 Source: patient and family Mode of arrival: Wheelchair History of Present Illness HPI narrative: Patient was a 53-year-old male. Has a history of insulin-dependent diabetes. Is here for evaluation of approximately 24 hours of fatigue, cough, fast heart rate, fevers and generally not feeling well. He has been exposed to influenza by other family members. Related Data Home Medications Medication Instructions Recorded Confirmed loratadine 10 mg tablet (Claritin) 10 mg PO DAILY 07/27/19 01/11/23 atorvastatin 40 mg tablet 40 mg PO BEDTIME 09/25/19 01/11/23 lisinopril 10 mg tablet 10 mg PO DAILY 09/25/19 01/11/23 albuterol sulfate 90 mcg/actuation inhalation 01/11/23 01/11/23 aerosol inhaler buspirone 5 mg tablet 10 mg PO BID 01/11/23 01/11/23 clonazepam 1 mg tablet mg PO 01/11/23 01/11/23 dapagliflozin propanediol 10 mg 10 mg PO DAILY 01/11/23 01/11/23 tablet (Farxiga) duloxetine 40 mg capsule,delayed 40 mg PO DAILY 01/11/23 01/11/23 release insulin glargine 100 unit/mL (3 unit SUBCUT 01/11/23 01/11/23 mL) subcutaneous pen (Lantus Solostar U-100 Insulin) fluorometholone 0.1 % eye drp EYE-BOTH 03/18/24 03/18/24 drops,suspension metformin 500 mg tablet,extended 1,000 mg PO BID 03/18/24 03/18/24 release 24 hr pen needle, diabetic 31 gauge x #1,200 ea 03/18/24 03/18/24 5/16 (Unifine Pentips Plus) Previous Rx's Medication Instructions Recorded oseltamivir 75 mg capsule (Tamiflu) 75 mg PO BID 5 days #10 caps 03/18/24 Allergies Allergy/AdvReac Type Severity Reaction Status Date / Time No Known Drug Allergies Allergy Verified 03/18/24 17:36 Review of Systems Review of Systems ROS Unobtainable: All systems reviewed & are unremarkable except as noted in HPI and below Patient History Medical History Cellulitis of great toe, right Acute pancreatitis Depression Diabetes Dyslipidemia Hypertension Surgical History S/P cardiac cath Hx of cholecystectomy Family History Father Acute cholecystitis Mother Acute cholecystitis Diverticulitis Cardiac arrhythmia Brother Acute cholecystitis Social History household members: family Smoking Status: Never smoker alcohol intake: never Smoking Status: Never smoker alcohol intake frequency: 0-2 drinks per day Exam Initial Vital Signs Initial Vital Signs: Vital Signs Temperature 101.8 F H 03/18/24 17:21 Pulse Rate 133 H 03/18/24 17:21 Respiratory Rate 22 03/18/24 17:21 Blood Pressure 131/75 03/18/24 17:21 Pulse Oximetry 94 03/18/24 17:21 Oxygen Delivery Method Room Air 03/18/24 17:21 Const General: cooperative and No ill appearing HENSC Head: normal to inspection and normocephalic Resp Effort & Inspection: no cough and tachypneic Auscultation: clear to auscultation bilaterally Cardio Rate: tachycardic Rhythm: regular rhythm GI Inspection: normal to inspection and non-distended Skin General: no rashes or lesions noted Neuro General: patient alert, patient awake, patient oriented x3 and moves all extremities Extrem General: normal to inspection and capillary refill normal Course Orders Ordered: Discontinued Medications Sodium Chloride (Normal Saline 0.9%) 1,000 mls @ 1,000 mls/hr IV BOLUS ONE Stop: 03/18/24 18:45 Last Infusion: 03/18/24 19:28 Dose: Infused Documented By: Admin: 03/18/24 18:17 Dose: 1,000 mls/hr Documented By: ANIVAL Oseltamivir Phosphate (Oseltamivir 75 Mg Capsule) 75 mg PO NOW ONE Stop: 03/18/24 18:55 Last Admin: 03/18/24 19:39 Dose: 75 mg Documented By: BS Vital Signs Vital signs: Vital Signs - 8 hr 03/18/24 17:21 03/18/24 18:27 Temperature 101.8 F H Pulse Rate 133 H 126 H Respiratory Rate 22 20 Blood Pressure 131/75 Pulse Oximetry 94 94 Oxygen Delivery Method Room Air Room Air Medical Decision Making Lab Data Lab results reviewed: Yes I reviewed the patient's lab results. 03/18/24 18:02 03/18/24 18:02 Labs: Lab Results 03/18/24 03/18/24 Range/Units 17:37 18:02 WBC 7.3 (4.5-11.0) X10^3/uL RBC 4.80 (4.5-5.9) X10^6/uL Hgb 15.3 (13.5-17.5) g/dL Hct 44.2 (41-53) % MCV 92.1 (80-100) fL MCH 31.9 (26-34) PG MCHC 34.6 (30-36) % RDW 15.3 H (11.6-14.8) % Plt Count 233 (150-400) X10^3/uL Neut % (Auto) 85.5 H (50-75) % Lymph % (Auto) 5.4 L (25-40) % Antelope % (Auto) 7.4 (3-14) % Eos % (Auto) 0.7 L (2-4) % Baso % (Auto) 1.0 (0-2) % Neut # (Auto) 6300 (7715-6094) /uL Lymph # (Auto) 400 L (8685-6521) /uL Antelope # (Auto) 500 (0-900) /uL Eos # (Auto) 100 (0-450) /uL Baso # (Auto) 100 (0-100) /uL PT 12.4 (9.4-12.5) SECONDS INR 1.1 (0.9-1.3) Sodium 132 L (137-145) mmol/L Potassium 4.4 (3.4-5.1) mmol/L Chloride 100 (98-107) mmol/L Carbon Dioxide 23 (22-32) mmol/L BUN 16 (9-20) mg/dL Creatinine 1.07 (0.66-1.25) mg/dL Estimated GFR > 60 (>60) mL/min BUN/Creatinine Ratio 15.0 (6-22) Glucose 228 H (70-100) mg/dL Lactate 1.3 (0.7-2.1) mmol/L Calcium 9.4 (8.4-10.2) mg/dL Total Bilirubin 0.9 (0.2-1.3) mg/dL AST 49 (17-59) IU/L ALT 57 H (<50) IU/L Alkaline Phosphatase 92 (38-126) U/L Troponin I < 0.012 (0.01-0.034) ng/mL NT-Pro-B Natriuret Pep 446 H (<125) pg/mL Total Protein 7.5 (6.3-8.2) g/dL Albumin 4.3 (3.5-5.0) g/dL Globulin 3.2 (1.7-4.1) g/dL Albumin/Globulin Ratio 1.3 (1.0-2.8) SARS-CoV-2 (PCR) Negative (Negative) Influenza A (RT-PCR) Flu a positive H (NEGATIVE) Influenza B (RT-PCR) Flu b negative (NEGATIVE) RSV (PCR) Negative (Negative) Point of Care Testing Glucose POC 215 Point of care testing: Point of Care Testing Glucose POC 215 Imaging Data Chest x-ray: Radiologist's Impression: PROCEDURE: XR CHEST 1V INDICATIONS: Shortness of breath TECHNIQUE: One view of the chest was acquired. COMPARISON: [facility], , XR CHEST 1V, 03/01/2023, 16:05. [facility], CR, XR CHEST 1V, 09/25/2019, 14:03. FINDINGS: Surgical changes and devices: None. Lungs and pleura: Low lung volumes. No dense consolidation or pleural effusions. Mediastinum: Borderline cardiomegaly Bones and chest wall: Unremarkable IMPRESSION: Limited single view radiograph with low lung volumes. No acute abnormality. Borderline cardiomegaly. ECG Data Attestation: I personally reviewed and interpreted this ECG as follows: Interpretation: Sinus tachycardia Ventricular rate of 135 Normal axis Normal QRS No ST T wave changes MDM Narrative Medical decision making narrative: Patient is influenza positive which does explain his symptoms that he presents with today. Chest x-ray shows no signs of pneumonia. He was not hypoxic. Is tachycardic but does have influenza and also a fever. Is tolerating oral intake. We did discuss use of Tamiflu which the patient and the family would like him to start. He was given his 1st dose here in the emergency department. Patient was not in DKA. Blood sugar is 228 on our labs. We did discuss the expected course of the next couple days. Recommended that he take his blood sugars at home and continue to take all of his medications as directed. Patient ambulated without becoming hypoxic. Discharge Plan Departure Patient Disposition: Home Clinical Impression: Influenza A Instructions: DI for Influenza -- Adult Activity Restrictions/Additional Instructions: You can take Tylenol and/or ibuprofen for any fevers. Be sure that you were increasing your fluid intake. Continue the rest of your medications as directed. Take the Tamiflu as directed as well. Return to the emergency department for new symptoms. Prescriptions: New oseltamivir [Tamiflu] 75 mg capsule 75 mg PO BID 5 Days Qty: 10 0RF No Action fluorometholone 0.1 % drops,suspension EYE-BOTH metformin 500 mg tablet extended release 24 hr 1,000 mg PO BID (DME) pen needle, diabetic [Unifine Pentips Plus] 31 gauge x 5/16 needle See Rx Instructions .ROUTE .MEDSUPPLY Qty: 1200 Patient Comments: [NO ORIGINAL SIG] Rx Instructions: As directed insulin glargine [Lantus Solostar U-100 Insulin] 100 unit/mL (3 mL) insulin pen SUBCUT Patient Comments: [NO ORIGINAL SIG] duloxetine 40 mg capsule,delayed release(DR/EC) 40 mg PO DAILY buspirone 5 mg tablet 10 mg PO BID Farxiga 10 mg tablet 10 mg PO DAILY albuterol sulfate 90 mcg/actuation HFA aerosol inhaler inhalation clonazepam 1 mg tablet PO loratadine [Claritin] 10 mg Tablet 10 mg PO DAILY atorvastatin 40 mg tablet 40 mg PO BEDTIME lisinopril 10 mg Tablet 10 mg PO DAILY Referrals: Maria Luisa Smith PA-C [Primary Care Provider] - Stand Alone Forms: Patient Portal/API/Survey
[2024-03-18] MEDS: OSELTAMIVIR 75 MG CAPSULE PO (19:39)
== END 2024-03-18 19:45 | disposition home or self-care (01) ==
PROVIDERS: Student in an Organized Health Care Education/Training Program; Emergency Provider Emergency Medicine; PCP Physician Assistant
DX: J10.1 Influenza due to other identified influenza virus with other respiratory manifestations (principal); R00.0 Tachycardia, unspecified; E11.9 Type 2 diabetes mellitus without complications; Z79.84 Long term (current) use of oral hypoglycemic drugs; Z79.4 Long term (current) use of insulin
CPT/HCPCS: 0241U; 36415; 71045; 80053; 82962; 83605; 83880; 84484; 85025; 85610; 93005; 94150; 96360; 99284

== ENCOUNTER → 2025-02-07 15:39 | Outpatient (CLI) | payer OTHER, SELFPAY ==
[2023-03-01 21:05] VITALS: BMI 34.8
[2025-02-07 16:23] LABS: Influenza A - CEPHEID Flu A NEGATIVE (NEGATIVE); Influenza B - CEPHEID Flu B NEGATIVE (NEGATIVE)
[2025-02-07 16:27] LABS: COVID-19 CEPHEID 4-PLEX PCR Negative (Negative)
== END ==
PROVIDERS: PCP Physician Assistant; Visit Provider Nurse Practitioner Family
DX: J02.9 Acute pharyngitis, unspecified (principal)
CPT/HCPCS: 87070; 87637

== ENCOUNTER → 2025-02-07 16:11 | Outpatient (CLI) | payer OTHER, SELFPAY ==
[2023-03-01 21:05] VITALS: BMI 34.8
--- NOTE | 2025-02-07 16:13 | DI.RAD.S_ITS ---
PROCEDURE: XR CHEST 2V INDICATIONS: Cough TECHNIQUE: 2 views of the chest were acquired. COMPARISON: [facility], CR, XR CHEST 1V, 03/18/2024, 17:57. FINDINGS: Surgical changes and devices: None. Lungs and pleura: Lungs are clear. No pleural effusions or pneumothorax. Mediastinum: Mediastinal contours are normal. Heart size is normal. Bones and chest wall: No suspicious bony abnormalities. Soft tissues appear unremarkable. IMPRESSION: No acute cardiopulmonary pathology. Dictated by: Cali Sanchez M.D. on 02/07/2025 at 16:57 Approved by: Cali Sanchez M.D. on 02/07/2025 at 16:57
== END ==
PROVIDERS: PCP Physician Assistant; Referring Provider Nurse Practitioner Family; Visit Provider Nurse Practitioner Family
DX: R05.9 Cough, unspecified (principal)
CPT/HCPCS: 71046